=== PATIENT | male | born 1935 | race Caucasian/White ===

== ENCOUNTER 2016-05-25 03:09 | Inpatient (IN) | payer MEDICARE, BC ==
[~2016-05-25] VITALS: Ht 190.5 cm; Wt 107.0 kg
[2016-05-25] VITALS (18 sets, daily range): BP systolic 102–195; BP diastolic 53–112; PULSE 68–115; RESP 16–24; TEMP 98.4–103; O2SAT 93–98
[2016-05-25] MEDS ORDERED: SODIUM CHLOR 0.9% 1000 ML INJ 1,000 ML IV ONE ×3 (03:25→04:00)
[2016-05-25] MEDS ORDERED: TAMS0.4C4 PO (03:28)
[2016-05-25] MEDS ORDERED: PANT20TA2 PO (03:28)
[2016-05-25] MEDS ORDERED: MIRTA15 PO (03:28)
[2016-05-25] MEDS ORDERED: CARV6.252 PO (03:28)
--- NOTE | 2016-05-25 03:29 | PD ---
HPI Chief Complaint: generalized weakness, fever Time Seen by Provider: 03:20 Travel History International Travel<30 days: No Contact w/Intl Traveler<30days: No Traveled to known affect area: No History of Present Illness HPI 80-year-old male brought in by ambulance from home for evaluation of generalized weakness. The patient reports that he was going to use a restroom this evening, however he could not get out of bed. He denies falling, passing out, or injuring himself. He is having some epigastric abdominal discomfort which she believes may be an ulcer. He denies chest pain. He reports that he has been having a cough for the last several days. Unsure if he has had a fever. No history of abdominal surgeries. EMS reports a temp of 103F and a heart rate of 110 bpm with an O2 saturation in the low 90s on room air. Patient denies history of cardiopulmonary disease. [facility] Social History Tobacco Use: No Allergies-Medications (Allergen,Severity, Reaction): Coded Allergies: No Known Allergies (Unverified , 05/25/16) Reported Meds & Prescriptions Reported Meds & Active Scripts Active Reported Mirtazapine 15 Mg Tab 15 Mg PO HS Tamsulosin (Tamsulosin HCl) 0.4 Mg Cap 0.4 Mg PO HS Pantoprazole (Pantoprazole Sodium) 20 Mg Tab 20 Mg PO DAILY Carvedilol 6.25 Mg Tab 6.25 Mg PO BID Review of Systems Except as stated in HPI: all other systems reviewed are Neg Physical Exam Narrative GENERAL: Pleasant, well-developed, well-nourished, elderly-appearing male, awake , alert, no acute distress. SKIN: Warm and dry. No rash. HEAD: Atraumatic. Normocephalic. EYES: Pupils equal and round. No scleral icterus. No injection or drainage. ENT: No nasal bleeding or discharge. Mucous membranes pink and dry. NECK: Trachea midline. No JVD. No nuchal rigidity. CARDIOVASCULAR: Tachycardic, rate 110, regular. RESPIRATORY: No accessory muscle use. Clear to auscultation. Breath sounds equal bilaterally. GASTROINTESTINAL: Abdomen soft, non-tender, nondistended. MUSCULOSKELETAL: No obvious deformities. No clubbing. No cyanosis. No edema. NEUROLOGICAL: Awake and alert. No obvious cranial nerve deficits. Motor grossly within normal limits. Normal speech. No focal deficit. PSYCHIATRIC: Appropriate mood and affect; insight and judgment normal. Data Data Last Documented VS Vital Signs Date Time Temp Pulse Resp B/P Pulse Ox O2 Delivery O2 Flow Rate FiO2 05/25/16 05:22 99.8 95 22 135/73 98 Nasal Cannula 4 Orders Electrocardiogram (05/25/16 03:25) Complete Blood Count With Diff (05/25/16 03:25) Comprehensive Metabolic Panel (05/25/16 03:25) Prothrombin Time / Inr (Pt) (05/25/16 03:25) Act Partial Throm Time (Ptt) (05/25/16 03:25) Lactic Acid Sepsis Protocol (05/25/16 03:25) Lipase (05/25/16 03:25) Ckmb (Isoenzyme) Profile (05/25/16 03:25) Troponin I (05/25/16 03:25) Urinalysis - C+S If Indicated (05/25/16 03:25) Influenzae A/B Antigen (05/25/16 03:25) Blood Culture (05/25/16 03:25) Chest, Single Ap (05/25/16 03:25) Blood Glucose (05/25/16 03:25) Ecg Monitoring (05/25/16 03:25) Iv Access Insert/Monitor (05/25/16 03:25) Oximetry (05/25/16 03:25) Oxygen Administration (05/25/16 03:25) Acetaminophen Supp (Tylenol Supp) (05/25/16 03:30) Sodium Chlor 0.9% 1000 Ml Inj (Ns 1000 M (05/25/16 03:25) Sodium Chlor 0.9% 1000 Ml Inj (Ns 1000 M (05/25/16 03:25) Ceftriaxone Inj (Rocephin Inj) (05/25/16 03:30) Azithromycin Inj (Zithromax Inj) (05/25/16 03:30) Sodium Chlor 0.9% 1000 Ml Inj (Ns 1000 M (05/25/16 04:00) Ct Abd/Pel W/O Iv Contrast (05/25/16 04:27) Urine Culture (05/25/16 04:55) Admit Order (Ed Use Only) (05/25/16 05:19) Consult Urology (05/25/16 ) Sodium Chlor 0.9% 1000 Ml Inj (Ns 1000 M (05/25/16 05:18) Sodium Chloride 0.9% Flush (Ns Flush) (05/25/16 05:30) Sodium Chloride 0.9% Flush (Ns Flush) (05/25/16 09:00) Acetaminophen (Tylenol) (05/25/16 05:30) Ondansetron Inj (Zofran Inj) (05/25/16 05:30) Albuterol-Ipratropium Neb (Duoneb Neb) (05/25/16 05:30) Admit To Inpatient (05/25/16 ) Vital Signs (Adult) Q4H (05/25/16 05:18) ^ Notify Parameters (05/25/16 05:18) Intake + Output Q8H (05/25/16 05:18) ^ Smoking Cessation Counseling (05/25/16 05:18) Diet Heart Healthy (05/25/16 Breakfast) Heparin Inj (Heparin Inj) (05/25/16 06:00) Inpatient Certification (05/25/16 ) Complete Blood Count With Diff (05/25/16 12:00) Comprehensive Metabolic Panel (05/25/16 12:00) Ceftriaxone Inj (Rocephin Inj) (05/26/16 04:00) Azithromycin Inj (Zithromax Inj) (05/26/16 05:00) Labs Laboratory Tests Test 05/25/16 05/25/16 03:30 04:55 White Blood Count 15.6 TH/MM3 Red Blood Count 4.12 MIL/MM3 Hemoglobin 12.7 GM/DL Hematocrit 38.6 % Mean Corpuscular Volume 93.7 FL Mean Corpuscular Hemoglobin 30.9 PG Mean Corpuscular Hemoglobin 32.9 % Concent Red Cell Distribution Width 14.4 % Platelet Count 172 TH/MM3 Mean Platelet Volume 8.7 FL Neutrophils (%) (Auto) 94.7 % Lymphocytes (%) (Auto) 1.1 % Monocytes (%) (Auto) 3.5 % Eosinophils (%) (Auto) 0.1 % Basophils (%) (Auto) 0.6 % Neutrophils # (Auto) 14.8 TH/MM3 Lymphocytes # (Auto) 0.2 TH/MM3 Monocytes # (Auto) 0.6 TH/MM3 Eosinophils # (Auto) 0.0 TH/MM3 Basophils # (Auto) 0.1 TH/MM3 CBC Comment DIFF FINAL Differential Comment Prothrombin Time 15.3 SEC Prothromb Time International 1.4 RATIO Ratio Activated Partial 29.6 SEC Thromboplast Time Sodium Level 143 MEQ/L Potassium Level 3.9 MEQ/L Chloride Level 107 MEQ/L Carbon Dioxide Level 27.5 MEQ/L Anion Gap 9 MEQ/L Blood Urea Nitrogen 25 MG/DL Creatinine 2.65 MG/DL Estimat Glomerular Filtration 23 ML/MIN Rate Random Glucose 156 MG/DL Lactic Acid Level 2.5 mmol/L Calcium Level 9.1 MG/DL Total Bilirubin 1.8 MG/DL Aspartate Amino Transf 9 U/L (AST/SGOT) Alanine Aminotransferase 11 U/L (ALT/SGPT) Alkaline Phosphatase 76 U/L Total Creatine Kinase 22 U/L Troponin I 0.02 NG/ML Total Protein 6.2 GM/DL Albumin 2.7 GM/DL Lipase 45 U/L Urine Color YELLOW Urine Turbidity HAZY Urine pH 7.5 Urine Specific [place] 1.010 Urine Protein 30 mg/dL Urine Glucose (UA) NEG mg/dL Urine Ketones NEG mg/dL Urine Occult Blood SMALL Urine Nitrite POS Urine Bilirubin NEG Urine Urobilinogen LESS THAN 2.0 MG/DL Urine Leukocyte Esterase LARGE Urine RBC 42 /hpf Urine WBC 117 /hpf Urine Bacteria OCC /hpf Urine Hyaline Casts 1 /lpf Urine Mucus FEW /lpf Microscopic Urinalysis Comment CATH-CULTURE IND MDM Medical Decision Making Medical Screen Exam Complete: Yes Emergency Medical Condition: Yes Differential Diagnosis Sepsis, pneumonia, UTI, bacteremia, intra-abdominal infection, ACS, PE Narrative Course Initial vital signs show heart rate 102, blood pressure 141/74, pulse ox 96% on room air, oral temp of 10 3F. CBC is markable for WBC 15.6, hemoglobin 12.7, hematocrit 38.6, platelets 172, neutrophils 95%. CMP is markable for BUN 25, creatinine 2.65, GFR 23, otherwise essentially unremarkable. Lipase is 45. Lactic acid is 2.5. UA is suggestive of UTI. Chest x-ray shows patchy areas of infiltrate in the left mid and lower lung. CT abdomen pelvis: CONCLUSION: 1. Bilateral staghorn type renal calculi and left double J stent in place with concretion calcifications both proximal and distal. 2. There is also an obstructing stone in the proximal right ureter measuring 5 mm and causing mild right hydronephrosis. 3. Bilateral fat containing inguinal hernias, small right pleural effusion, probable pericardial effusion, and moderate enlargement of the prostate. The patient was empirically treated with Rocephin and azithromycin for sepsis with likely pulmonary source shortly after arrival to the emergency department. He was given 3 L of IV fluids and oral Tylenol. Patient was made aware of all findings. He is feeling a lot better after receiving IV fluids and Tylenol. He tells me that the left ureteral stent was placed by a urologist in [place] a while ago. He will be admitted to the ICU for further treatment and evaluation of sepsis, pneumonia, UTI, infected kidney stone. Case discussed with [facility] hospitalist JONATHON Alex who will admit the patient to their service under Dr. Cota. Case discussed with on-call urologist Dr. Vazquez who agrees with medical management with IV antibiotics and IV fluids at this time. He will see the patient in consultation as the patient may need bilateral nephrostomy tubes. Critical Care Narrative Aggregate critical care time was 35 minutes. Time to perform other separately billable procedures was not included in the critical care time. My time did not include minutes spent treating any other patients simultaneously or on activities that did not directly contribute to the patient's treatment. The services I provided to this patient were to treat and/or prevent clinically significant deterioration that could result in: , permanent disability, worsening clinical condition, septic shock I provided critical care services requiring my management, as noted below: Chart data review, documentation time, medication orders and management, vital sign assessments/reviewing monitor data, ordering and reviewing lab tests, ordering and interpreting/reviewing x-rays and diagnostic studies, care of the patient and discussion of the patient with the admitting physicians. Diagnosis Primary Impression: Sepsis Qualified Code: A41.9 - Sepsis, due to unspecified organism Additional Impressions: Pneumonia Qualified Code: J18.1 - Pneumonia of left lower lobe due to infectious organism UTI (urinary tract infection) Qualified Code: N39.0 - Urinary tract infection with hematuria, site unspecified Nephrolithiasis Renal insufficiency Admitting Information Admitting Physician Requests: Admit Roman Vickers MD May 25, 2016 03:29
[2016-05-25] MEDS ORDERED: AZITHROMYCIN INJ 500 MG in SODIUM CHLOR 0.9% 250 ML INJ 250 ML IV ONE (03:30)
[2016-05-25] MEDS ORDERED: ACETAMINOPHEN 650 MG SUPP RECTAL ONE (03:30)
[2016-05-25] MEDS ORDERED: cefTRIAXone INJ 1,000 MG in SODIUM CHLORIDE 0.9% INJ 100 ML IV ONE (03:30)
[2016-05-25 03:50] LABS: AUTOMATED NEUTROPHIL # 14.8 TH/MM3 (1.8-7.7); BASOPHIL # 0.1 TH/MM3 (0-0.2); BASOPHIL % 0.6 % (0.0-2.0); EOSINOPHIL % 0.1 % (0.0-4.0); HEMATOCRIT 38.6 % (39.0-51.0); HEMO FLAGS DIFF FINAL; LYMPH % 1.1 % (9.0-44.0); LYMPHOCYTE # 0.2 TH/MM3 (1.0-4.8); MEAN CELL VOLUME 93.7 FL (80.0-100.0); MEAN CORPUSCULAR HEMOGLOBIN 30.9 PG (27.0-34.0); MEAN CORPUSCULAR HGB CONC 32.9 % (32.0-36.0); MONO % 3.5 % (0.0-8.0); NEUT % 94.7 % (16.0-70.0); PLATELET COUNT 172 TH/MM3 (150-450); RED BLOOD COUNT 4.12 MIL/MM3 (4.50-5.90); RED CELL DISTRIBUTION WIDTH 14.4 % (11.6-17.2); WHITE BLOOD COUNT 15.6 TH/MM3 (4.0-11.0)
--- NOTE | 2016-05-25 03:52 | RADRPT ---
EXAM DATE/TIME: 05/25/2016 03:34 [facility] COMPARISON: No previous studies available for comparison. INDICATIONS : Fever, weakness. MEDICAL HISTORY : None. SURGICAL HISTORY : None. ENCOUNTER: Initial ACUITY: 1 day PAIN SCORE: 0/10 LOCATION: Bilateral chest FINDINGS: There are patchy areas of infiltrate in left mid and lower lung without loss of delineation left evy diaphragm. The right lung is clear. The heart is mildly enlarged. CONCLUSION: Patchy areas of infiltrate in left mid and lower lung. Grayson Alcala MD on May 25, 2016 at 3:50 Board Certified Radiologist. This report was verified electronically.
[2016-05-25 04:07] LABS: ALT (GPT) 11 U/L (12-78); ANION GAP 9 MEQ/L (5-15); AST (GOT) 9 U/L (15-37); BICARBONATE 27.5 MEQ/L (21.0-32.0); BLOOD UREA NITROGEN 25 MG/DL (7-18); CHLORIDE 107 MEQ/L (98-107); GLOMERULAR FILTRATION RATE 23 ML/MIN (>89); POTASSIUM 3.9 MEQ/L (3.5-5.1); SODIUM (NA) 143 MEQ/L (136-145)
[2016-05-25 04:11] LABS: ALKALINE PHOSPHATASE 76 U/L (45-117); TOTAL BILIRUBIN ADULT 1.8 MG/DL (0.2-1.0)
[2016-05-25 04:13] LABS: APTT (PATIENT) 29.6 SEC (24.3-30.1); INTERNATIONAL NORMALIZED RATIO 1.4 RATIO; PROTHROMBIN TIME - PATIENT 15.3 SEC (9.8-11.6)
[2016-05-25 04:15] LABS: CREATINE KINASE 22 U/L (39-308)
--- NOTE | 2016-05-25 05:04 | RADRPT ---
EXAM DATE/TIME: 05/25/2016 04:31 [facility] COMPARISON: No previous studies available for comparison. INDICATIONS : Epigastric pain with fever and general weakness. ORAL CONTRAST: No oral contrast ingested. RADIATION DOSE: 11.09 CTDIvol (mGy) MEDICAL HISTORY : Cerebrovascular disease. Hypertension. Cardiovascular disease SURGICAL HISTORY : unable to obtain ENCOUNTER: Initial ACUITY: 1 day PAIN SCALE: 6/10 LOCATION: epigastric TECHNIQUE: Volumetric scanning of the abdomen and pelvis was performed. Using automated exposure control and ad justment of the mA and/or kV according to patient size, radiation dose was kept as low as reasonably achievable to obtain optimal diagnostic quality images. FINDINGS: LOWER LUNGS: The visualized lower lungs are clear. Small right pleural effusion measuring 2 cm in AP dimension. Thickening of the pericardium, measuring up to 1.8 cm in thickness suggestive of pericardial effusion . LIVER: Homogeneous density without lesion for noncontrast technique. There is no dilation of the biliary tr ee. No calcified gallstones. SPLEEN: Normal size without lesion. PANCREAS: Within normal limits. KIDNEYS: There is mild hydronephrosis on the right side and dilation of the right ureter down to the proximal one third where there is a obstructing 5 mm calcified stone. There is also prominent calcification i n the renal pelvis with some labral lesion and in the collecting system of the lower pole. The findi ngs suggest staghorn type calculus. On the left side there is a double J stent which courses from ur inary bladder to renal pelvis. There is large staghorn calculus with extension into the calyces the upper, mid and lower pole. There is also calcification surrounding the stent in the proximal one thi rd of the ureter and prominent calcification creation about the distal J. loop in the urinary bladder . There is a prominent exophytic cyst arising from the lower pole which measures 7 cm. Left upper p ole renal cyst measures 5.1 cm. ADRENAL GLANDS: Within normal limits. VASCULAR: There is no aortic aneurysm. BOWEL/MESENTERY: No dilated loops of small or large bowel. Multiple small diverticula in the sigmoid colon with no ra diographic evidence of diverticulitis. No evidence of free fluid. ABDOMINAL WALL: Within normal limits. RETROPERITONEUM: There is no lymphadenopathy. IVC filter in place. BLADDER: Prominent calcification and intraluminal surrounding the distal J. of the stent. The calcification m easures 3.4 cm in oblique dimension suggesting concretion stone. REPRODUCTIVE: Mildly prominent prostate measuring 6 cm in dimension. This does causing indentation on the base of the urinary bladder. INGUINAL: Small bilateral fat containing inguinal hernias. No evidence of inguinal adenopathy. MUSCULOSKELETAL: Advanced degenerative changes in the lumbar vertebral end plates and posterior elements. CONCLUSION: 1. Bilateral staghorn type renal calculi and left double J stent in place with concretion calcificati ons both proximal and distal. 2. There is also an obstructing stone in the proximal right ureter measuring 5 mm and causing mild ri ght hydronephrosis. 3. Bilateral fat containing inguinal hernias, small right pleural effusion, probable pericardial effu natalie, and moderate enlargement of the prostate. Grayson Alcala MD on May 25, 2016 at 4:54 Board Certified Radiologist. This report was verified electronically.
[2016-05-25 05:10] LABS: BACTERIA, URINE OCC /hpf; BLOOD, URINE SMALL (NEG); COMMENT (UR) CATH-CULTURE IND; CULTURE IF INDICATED CATH CULTURE IND; GLUCOSE,URINE NEG (NEG); HYALINE CAST, URINE 1 /lpf (RARE); KETONE, URINE NEG (NEG); MUCUS URINE FEW /lpf (OCC); NITRITE,URINE POS (NEG); PH, URINE 7.5 (5.0-8.5); URINE COLOR YELLOW (YELLW/STRAW)
[2016-05-25] MEDS ORDERED: SODIUM CHLORIDE 0.9% FLUSH 5 ML FLUSH IV FLUSH PRN (05:30)
[2016-05-25] MEDS ORDERED: RESP: ALBUTEROL 2.5 MG/IPRATROPIUM 0.5 MG NEB (PRN) INH (05:30)
[2016-05-25] MEDS ORDERED: ONDANSETRON HCL 4 MG/2 ML VIAL IV PRN (05:30)
[2016-05-25 05:43] LABS: LACTIC ACID GHOST NOT REPORTABLE
[2016-05-25] MEDS: SODIUM CHLOR 0.9% 1000 ML INJ 1,000 ML IV SCH ×2 (05:56→15:33)
[2016-05-25] MEDS: HEPARIN SODIUM - SQ 10,000 UNITS/ML VIAL SQ SCH ×2 (05:56→17:55)
[2016-05-25] MEDS: SODIUM CHLORIDE 0.9% FLUSH 5 ML FLUSH IV FLUSH SCH ×2 (09:00→21:00)
[2016-05-25] MEDS: PANTOPRAZOLE SOD 40 MG DELAYED RELEASE TAB PO SCH (10:24)
--- NOTE | 2016-05-25 10:43 | HHI.PR ---
Objective Objective Results - Vital Signs Date Time Temp Pulse Resp B/P Pulse Ox O2 Delivery O2 Flow Rate FiO2 05/25/16 08:00 98.7 87 22 134/71 98 Nasal Cannula 2 05/25/16 05:42 98 Nasal Cannula 4.00 05/25/16 05:22 99.8 95 22 135/73 98 Nasal Cannula 4 05/25/16 05:05 97 Nasal Cannula 4 05/25/16 05:05 22 05/25/16 05:04 22 05/25/16 03:28 103.0 102 22 141/74 96 Result Diagram: 05/25/16 0330 05/25/16 0330 Other Results Laboratory Tests Test 05/25/16 05/25/16 05/25/16 03:30 04:55 05:45 White Blood Count 15.6 Red Blood Count 4.12 Hemoglobin 12.7 Hematocrit 38.6 Mean Corpuscular Volume 93.7 Mean Corpuscular Hemoglobin 30.9 Mean Corpuscular Hemoglobin 32.9 Concent Red Cell Distribution Width 14.4 Platelet Count 172 Mean Platelet Volume 8.7 Neutrophils (%) (Auto) 94.7 Lymphocytes (%) (Auto) 1.1 Monocytes (%) (Auto) 3.5 Eosinophils (%) (Auto) 0.1 Basophils (%) (Auto) 0.6 Neutrophils # (Auto) 14.8 Lymphocytes # (Auto) 0.2 Monocytes # (Auto) 0.6 Eosinophils # (Auto) 0.0 Basophils # (Auto) 0.1 CBC Comment DIFF FINAL Differential Comment Prothrombin Time 15.3 Prothromb Time International 1.4 Ratio Activated Partial 29.6 Thromboplast Time Sodium Level 143 Potassium Level 3.9 Chloride Level 107 Carbon Dioxide Level 27.5 Anion Gap 9 Blood Urea Nitrogen 25 Creatinine 2.65 Estimat Glomerular Filtration 23 Rate Random Glucose 156 Lactic Acid Level 2.5 1.0 Calcium Level 9.1 Total Bilirubin 1.8 Aspartate Amino Transf 9 (AST/SGOT) Alanine Aminotransferase 11 (ALT/SGPT) Alkaline Phosphatase 76 Total Creatine Kinase 22 Troponin I 0.02 Total Protein 6.2 Albumin 2.7 Lipase 45 Urine Color YELLOW Urine Turbidity HAZY Urine pH 7.5 Urine Specific [place] 1.010 Urine Protein 30 Urine Glucose (UA) NEG Urine Ketones NEG Urine Occult Blood SMALL Urine Nitrite POS Urine Bilirubin NEG Urine Urobilinogen LESS THAN 2.0 Urine Leukocyte Esterase LARGE Urine RBC 42 Urine WBC 117 Urine Bacteria OCC Urine Hyaline Casts 1 Urine Mucus FEW Microscopic Urinalysis Comment CATH-CULTURE IND Date/Time Procedure Status Source Growth 05/25/16 04:55 Urine Culture Received Urine Catheterized Urine Pending 05/25/16 03:30 Influenza Types A,B Antigen (MARK) - Final Complete Nasal Washing NEGATIVE FOR FLU A AND B ANTIGEN.... 05/25/16 03:30 Aerobic Blood Culture Received Blood Peripheral Pending 05/25/16 03:30 Anaerobic Blood Culture Received Blood Peripheral Pending Physical Exam Physical Exam PT is seen & examined d/w PT d/w Mackenzie UTI/Pyelonephritis possible early sepsis R Ureteral stone w mild [place] b/l staghorn stones pulmonary infiltrates ? PNA Renal failure acute vs Ch. GERD see orders see H&P by mackenzie hall f/u Fredy Cota MD May 25, 2016 10:43
[2016-05-25 14:24] LABS: ALT (GPT) 13 U/L (12-78); ANION GAP 9 MEQ/L (5-15); AST (GOT) 12 U/L (15-37); BICARBONATE 22.9 MEQ/L (21.0-32.0); CHLORIDE 112 MEQ/L (98-107); GLOMERULAR FILTRATION RATE 26 ML/MIN (>89); POTASSIUM 4.3 MEQ/L (3.5-5.1); SODIUM (NA) 144 MEQ/L (136-145)
[2016-05-25 14:26] LABS: ALKALINE PHOSPHATASE 76 U/L (45-117); AUTOMATED NEUTROPHIL # 16.7 TH/MM3 (1.8-7.7); BASOPHIL # 0.1 TH/MM3 (0-0.2); BASOPHIL % 0.4 % (0.0-2.0); EOSINOPHIL % 0.1 % (0.0-4.0); HEMATOCRIT 39.6 % (39.0-51.0); HEMO FLAGS DIFF FINAL; LYMPH % 3.3 % (9.0-44.0); LYMPHOCYTE # 0.6 TH/MM3 (1.0-4.8); MEAN CELL VOLUME 95.1 FL (80.0-100.0); MEAN CORPUSCULAR HEMOGLOBIN 30.3 PG (27.0-34.0); MEAN CORPUSCULAR HGB CONC 31.8 % (32.0-36.0); MONO % 3.9 % (0.0-8.0); NEUT % 92.3 % (16.0-70.0); PLATELET COUNT 139 TH/MM3 (150-450); RED BLOOD COUNT 4.16 MIL/MM3 (4.50-5.90); RED CELL DISTRIBUTION WIDTH 15.2 % (11.6-17.2); WHITE BLOOD COUNT 18.1 TH/MM3 (4.0-11.0)
[2016-05-25 14:30] LABS: BLOOD UREA NITROGEN 24 MG/DL (7-18)
[2016-05-25] MEDS: ACETAMINOPHEN 325 MG TAB PO PRN (15:34)
[2016-05-25] MEDS ORDERED: XARE10TA PO (15:58)
[2016-05-25] MEDS ORDERED: TRAM50TA PO (15:58)
--- NOTE | 2016-05-25 16:44 | PD.CONS ---
HPI Service Urology Consult Requested By Reason for Consult nephrolithiasis, left stent Primary Care Physician Jade Price MD Diagnosis: History of Present Illness 80yo male with history of bilateral nephrolithiasis found to have bilateral staghorn calculi with and indwelling left calcified ureteral stent. Patient has seen by Urology in [place] over 2 yrs ago where his stent was placed. Patient was instructed to follow-up to treat his stone disease, however the patient [place] up north and never saw a Urologist. He now has a large staghorn calculus surrounding the left stent proximally with a large right distal bladder stone associated with the stent. In addition, the patient has a right staghorn as well as a mid-right ureteral stone causing some obstruction. Patient also reports significant lower urinary tract symptoms with difficulty voiding. Review of Systems ROS Limitations: Clinical Condition Constitutional: COMPLAINS OF: Fever Endocrine: DENIES: Polyuria Eyes: DENIES: Blurred vision Ears, nose, mouth, throat: DENIES: Hearing loss Respiratory: COMPLAINS OF: Apneas, Cough Cardiovascular: DENIES: Chest pain Gastrointestinal: COMPLAINS OF: Abdominal pain Genitourinary: COMPLAINS OF: Dysuria Hematologic/lymphatic: DENIES: Lymphadenopathy Immunologic/allergic: DENIES: Eczema Neurologic: DENIES: Abnormal gait, Headache Psychiatric: DENIES: Anxiety Past Family Social History Past Medical History HTN BPH Nephjroltihiasis Past Surgical History UReteral stents Reported Medications Reported Meds & Active Scripts Active Reported Tramadol (Tramadol HCl) 50 Mg Tab 50 Mg PO Q4H PRN Xarelto (Rivaroxaban) 10 Mg Tab Unknown Dose PO DAILY Mirtazapine 15 Mg Tab 15 Mg PO HS Tamsulosin (Tamsulosin HCl) 0.4 Mg Cap 0.4 Mg PO HS Pantoprazole (Pantoprazole Sodium) 20 Mg Tab 20 Mg PO DAILY Carvedilol 6.25 Mg Tab 6.25 Mg PO BID Allergies: Coded Allergies: No Known Allergies (Unverified , 05/25/16) Active Ordered Medications Current Medications Medications (Trade) Dose Ordered Sig/Axel Route Start Time Stop Time Status Last Admin (NS 1000 ml Inj) 1,000 ml @ 100 mls/hr Q10H IV 05/25/16 05:18 05/25/16 15:33 (NS Flush) 2 ml UNSCH PRN IV FLUSH 05/25/16 05:30 IV Flush 2 ml 2 ml BID IV FLUSH 05/25/16 09:00 Ceftriaxone Sodium 1000 mg/ Sodium Chloride 100 ml @ 200 mls/hr Q24H IV 05/26/16 04:00 (Zithromax Inj/ NS 250 ml Inj) 250 ml @ 250 mls/hr Q24H IV 05/26/16 05:00 (Tylenol) 650 mg Q4H PRN PO 05/25/16 05:30 05/25/16 15:34 (Zofran Inj) 4 mg Q6H PRN IV 05/25/16 05:30 (Heparin Inj) 5,000 units Q12H SQ 05/25/16 06:00 05/25/16 05:56 (Protonix) 40 mg DAILY PO 05/25/16 09:00 05/25/16 10:24 (Coreg) 6.25 mg BID PO 05/25/16 21:00 (Remeron) 15 mg HS PO 05/25/16 21:00 (Flomax) 0.4 mg HS PO 05/25/16 21:00 Family History Reviewed and noncontributory to present illness Social History NO tobacco use, occasional ETOh Physical Exam Vital Signs Vital Signs Date Time Temp Pulse Resp B/P Pulse Ox O2 Delivery O2 Flow Rate FiO2 05/25/16 15:15 101.1 05/25/16 14:00 102 20 162/96 93 Room Air 05/25/16 13:00 84 16 143/87 95 Room Air 05/25/16 12:00 84 22 137/89 96 Room Air 05/25/16 11:00 84 18 131/77 95 Room Air 05/25/16 10:00 84 20 133/70 96 Room Air 05/25/16 09:00 92 20 140/71 96 Nasal Cannula 2 05/25/16 08:00 98.7 87 22 134/71 98 Nasal Cannula 2 05/25/16 05:42 98 Nasal Cannula 4.00 05/25/16 05:22 99.8 95 22 135/73 98 Nasal Cannula 4 05/25/16 05:05 97 Nasal Cannula 4 05/25/16 05:05 22 05/25/16 05:04 22 05/25/16 03:28 103.0 102 22 141/74 96 Physical Exam GENERAL: This is a well-nourished, well-developed patient, in no apparent distress. SKIN: No rashes, ecchymoses or lesions. Cool and dry. HEAD: Atraumatic. Normocephalic. EYES: Extraocular motions intact. No scleral icterus. No injection or drainage. ENT: Nose without bleeding, purulent drainage. Airway patent. NECK: Trachea midline. No JVD or lymphadenopathy. Supple, nontender, no meningeal signs. CARDIOVASCULAR: Normal pulses, extermities well perfused RESPIRATORY: Nonlabored, equal chest rise, O2 NC GASTROINTESTINAL: Abdomen soft, mild tenderness, nondistended. MUSCULOSKELETAL: Extremities without clubbing, cyanosis, or edema. NEUROLOGICAL: Awake and alert. Motor and sensory grossly within normal limits. Normal speech. Laboratory Laboratory Tests Test 05/25/16 05/25/16 05/25/16 05/25/16 03:30 04:55 05:45 13:55 White Blood Count 15.6 18.1 Red Blood Count 4.12 4.16 Hemoglobin 12.7 12.6 Hematocrit 38.6 39.6 Mean Corpuscular Volume 93.7 95.1 Mean Corpuscular Hemoglobin 30.9 30.3 Mean Corpuscular Hemoglobin 32.9 31.8 Concent Red Cell Distribution Width 14.4 15.2 Platelet Count 172 139 Mean Platelet Volume 8.7 8.7 Neutrophils (%) (Auto) 94.7 92.3 Lymphocytes (%) (Auto) 1.1 3.3 Monocytes (%) (Auto) 3.5 3.9 Eosinophils (%) (Auto) 0.1 0.1 Basophils (%) (Auto) 0.6 0.4 Neutrophils # (Auto) 14.8 16.7 Lymphocytes # (Auto) 0.2 0.6 Monocytes # (Auto) 0.6 0.7 Eosinophils # (Auto) 0.0 0.0 Basophils # (Auto) 0.1 0.1 CBC Comment DIFF FINAL DIFF FINAL Differential Comment Prothrombin Time 15.3 Prothromb Time International 1.4 Ratio Activated Partial 29.6 Thromboplast Time Sodium Level 143 144 Potassium Level 3.9 4.3 Chloride Level 107 112 Carbon Dioxide Level 27.5 22.9 Anion Gap 9 9 Blood Urea Nitrogen 25 24 Creatinine 2.65 2.43 Estimat Glomerular Filtration 23 26 Rate Random Glucose 156 114 Lactic Acid Level 2.5 1.0 Calcium Level 9.1 8.9 Total Bilirubin 1.8 1.0 Aspartate Amino Transf 9 12 (AST/SGOT) Alanine Aminotransferase 11 13 (ALT/SGPT) Alkaline Phosphatase 76 76 Total Creatine Kinase 22 Troponin I 0.02 Total Protein 6.2 6.5 Albumin 2.7 2.7 Lipase 45 Urine Color YELLOW Urine Turbidity HAZY Urine pH 7.5 Urine Specific [place] 1.010 Urine Protein 30 Urine Glucose (UA) NEG Urine Ketones NEG Urine Occult Blood SMALL Urine Nitrite POS Urine Bilirubin NEG Urine Urobilinogen LESS THAN 2.0 Urine Leukocyte Esterase LARGE Urine RBC 42 Urine WBC 117 Urine Bacteria OCC Urine Hyaline Casts 1 Urine Mucus FEW Microscopic Urinalysis Comment CATH-CULTURE IND Hematology Comments Date/Time Procedure Status Source Growth 05/25/16 04:55 Urine Culture Received Urine Catheterized Urine Pending 05/25/16 03:30 Influenza Types A,B Antigen (MARK) - Final Complete Nasal Washing NEGATIVE FOR FLU A AND B ANTIGEN.... 05/25/16 03:30 Aerobic Blood Culture Received Blood Peripheral Pending 05/25/16 03:30 Anaerobic Blood Culture Received Blood Peripheral Pending Result Diagram: 05/25/16 1355 05/25/16 1355 Imaging Last 72 hours Impressions Abdomen/Pelvis CT 05/25/16 0427 Signed Impressions: Service Date/Time: Wednesday, May 25, 2016 04:31 - CONCLUSION: 1. Bilateral staghorn type renal calculi and left double J stent in place with concretion calcifications both proximal and distal. 2. There is also an obstructing stone in the proximal right ureter measuring 5 mm and causing mild right hydronephrosis. 3. Bilateral fat containing inguinal hernias, small right pleural effusion, probable pericardial effusion, and moderate enlargement of the prostate. Grayson Alcala MD Chest X-Ray 05/25/16 0325 Signed Impressions: Service Date/Time: Wednesday, May 25, 2016 03:34 - CONCLUSION: Patchy areas of infiltrate in left mid and lower lung. Grayson Alcala MD Assessment and Plan Problem List: (1) Nephrolithiasis ICD Code: N20.0 Status: Acute (2) UTI (urinary tract infection) ICD Code: N39.0 Status: Acute Assessment and Plan -Patient will need bilateral nephrostomy tube placement in order to adequetaly drain his kidneys in hopes of improving his renal function -The nephrostomy tubes will also serve as access for future PCNL to treat his stone burden -He will need removal of his bladder stone that is attached to his left stent prior to definitive stone treatment for his staghorn calculi -Patient is on Xarelto at this time, patient and family believe this is for Afib , but are unsure -Will order bilateral nephrostomy tube placement. Patient may be discharged once medically cleared with the nephrostomy tubes in place with close follow-up in Urology clinic for surgical planning regarding his stone burden. -In regards to his BPH, continue flomax therapy. If difficulty in voiding, may place catheter with Urology follow-up Problem Qualifiers (1) UTI (urinary tract infection): Qualified Code: N39.0 - Urinary tract infection with hematuria, site unspecified Vineet Vazquez MD May 25, 2016 16:44
[2016-05-25] MEDS ORDERED: CARVEDILOL 6.25 MG TAB PO ONE (17:45)
[2016-05-25] MEDS ORDERED: IBUPROFEN 600 MG TAB PO PRN (17:45)
[2016-05-25] MEDS: MORPHINE SULFATE 4 MG/ML INJ IV PUSH PRN (17:55)
[2016-05-25] MEDS: DILTIAZEM HCL 30 MG TAB PO SCH ×2 (18:29→21:30)
[2016-05-25] MEDS: TAMSULOSIN HCL 0.4 MG CAP PO SCH (21:30)
[2016-05-25] MEDS: MIRTAZAPINE 15 MG TAB PO SCH (21:30)
[2016-05-25] MEDS: CARVEDILOL 6.25 MG TAB PO SCH (21:31)
[2016-05-25] MEDS ORDERED: CHLORHEXIDINE GLUCONATE 2 % 1 PACK (2 CLOTHS)(extra cloths) TOP PRN (23:15)
--- NOTE | 2016-05-25 23:26 | EKG ---
Date Performed: 05/25/2016 Time Performed: 04:23:56 PTAGE: 80 years EKG: ATRIAL FIBRILLATION WITH RAPID VENTRICULAR RESPONSE RIGHT BUNDLE BRANCH BLOCK ABNORMAL ECG NO PREVIOUS TRACING DOCTOR: Macario Elizabeth Interpretating Date/Time 05/25/2016 23:25:32
[2016-05-26] VITALS (16 sets, daily range): BP systolic 92–232; BP diastolic 52–108; PULSE 47–142; RESP 11–44; TEMP 97.5–99.1; O2SAT 93–100
[2016-05-26] MEDS: SODIUM CHLOR 0.9% 1000 ML INJ 1,000 ML IV SCH ×3 (01:18→21:18)
[2016-05-26] MEDS: CHLORHEXIDINE GLUCONATE 2 % 1 PACK (2 CLOTHS)(taper/protocol) TOP SCH (04:00)
[2016-05-26] MEDS: cefTRIAXone INJ 1,000 MG in SODIUM CHLORIDE 0.9% INJ 100 ML IV SCH (04:09)
[2016-05-26] MEDS: HEPARIN SODIUM - SQ 10,000 UNITS/ML VIAL SQ SCH ×2 (05:00→18:00)
[2016-05-26] MEDS: AZITHROMYCIN INJ 500 MG in SODIUM CHLOR 0.9% 250 ML INJ 250 ML IV SCH (05:00)
[2016-05-26 06:34] LABS: HEMATOCRIT 34.8 % (39.0-51.0); MEAN CELL VOLUME 94.6 FL (80.0-100.0); MEAN CORPUSCULAR HEMOGLOBIN 30.7 PG (27.0-34.0); MEAN CORPUSCULAR HGB CONC 32.4 % (32.0-36.0); PLATELET COUNT 116 TH/MM3 (150-450); RED BLOOD COUNT 3.68 MIL/MM3 (4.50-5.90); RED CELL DISTRIBUTION WIDTH 15.1 % (11.6-17.2); REVIEW FLAG FINAL; WHITE BLOOD COUNT 10.9 TH/MM3 (4.0-11.0)
[2016-05-26 06:50] LABS: BICARBONATE 25.1 MEQ/L (21.0-32.0); POTASSIUM 4.2 MEQ/L (3.5-5.1)
[2016-05-26] MEDS: DILTIAZEM HCL 30 MG TAB PO SCH ×3 (08:16→20:32)
[2016-05-26] MEDS: CARVEDILOL 6.25 MG TAB PO SCH ×2 (08:16→20:32)
[2016-05-26] MEDS: SODIUM CHLORIDE 0.9% FLUSH 5 ML FLUSH IV FLUSH SCH ×2 (08:17→20:32)
[2016-05-26] MEDS: PANTOPRAZOLE SOD 40 MG DELAYED RELEASE TAB PO SCH (08:17)
--- NOTE | 2016-05-26 09:01 | HHI.PR ---
Subjective Subjective Remarks Awakes to voice, somnolent, oriented 3 Has no complaints No fever Coreg and diltiazem held this morning, noted bradycardic, heart rate 40s Blood pressure 100s Review of Systems Constitutional Constitutional Remarks 12 point ROS difficult to complete Vitals/Results Intake & Output 05/25/16 05/25/16 05/26/16 15:00 23:00 07:00 Intake Total 300 ml 420 ml 1355 ml Output Total 300 ml 150 ml Balance 300 ml 120 ml 1205 ml Intake Oral 300 ml 420 ml 50 ml IV Total 1305 ml Output Urine Total 300 ml 150 ml # Voids 1 3 # Bowel Movements 0 Vital Signs Vital Signs Date Time Temp Pulse Resp B/P Pulse Ox O2 Delivery O2 Flow Rate FiO2 05/26/16 06:00 51 05/26/16 04:00 47 05/26/16 04:00 97.6 47 11 107/56 98 05/26/16 02:00 54 05/26/16 01:25 97 Nasal Cannula 2.00 05/26/16 01:20 97 Nasal Cannula 2.00 05/26/16 00:00 98.4 57 15 92/52 97 05/26/16 00:00 68 05/25/16 22:49 98.4 68 24 102/53 95 05/25/16 21:57 79 20 107/71 97 Nasal Cannula 2 05/25/16 19:15 92 20 143/73 97 Nasal Cannula 2 05/25/16 18:29 99.0 95 20 154/72 97 Nasal Cannula 2 05/25/16 18:00 20 05/25/16 17:30 115 20 195/112 97 Nasal Cannula 2 05/25/16 16:54 101.8 113 20 172/90 97 Nasal Cannula 2 05/25/16 15:15 101.1 05/25/16 14:00 102 20 162/96 93 Room Air 05/25/16 13:00 84 16 143/87 95 Room Air 05/25/16 12:00 84 22 137/89 96 Room Air 05/25/16 11:00 84 18 131/77 95 Room Air 05/25/16 10:00 84 20 133/70 96 Room Air CBC/BMP: 05/26/16 0540 05/26/16 0540 Lab Results Laboratory Tests Test 05/25/16 05/25/16 05/26/16 13:55 22:45 05:40 White Blood Count 18.1 TH/MM3 10.9 TH/MM3 Red Blood Count 4.16 MIL/MM3 3.68 MIL/MM3 Hemoglobin 12.6 GM/DL 11.3 GM/DL Hematocrit 39.6 % 34.8 % Mean Corpuscular Volume 95.1 FL 94.6 FL Mean Corpuscular Hemoglobin 30.3 PG 30.7 PG Mean Corpuscular Hemoglobin 31.8 % 32.4 % Concent Red Cell Distribution Width 15.2 % 15.1 % Platelet Count 139 TH/MM3 116 TH/MM3 Mean Platelet Volume 8.7 FL 9.2 FL Neutrophils (%) (Auto) 92.3 % Lymphocytes (%) (Auto) 3.3 % Monocytes (%) (Auto) 3.9 % Eosinophils (%) (Auto) 0.1 % Basophils (%) (Auto) 0.4 % Neutrophils # (Auto) 16.7 TH/MM3 Lymphocytes # (Auto) 0.6 TH/MM3 Monocytes # (Auto) 0.7 TH/MM3 Eosinophils # (Auto) 0.0 TH/MM3 Basophils # (Auto) 0.1 TH/MM3 CBC Comment DIFF FINAL Differential Comment Hematology Comments Sodium Level 144 MEQ/L 144 MEQ/L Potassium Level 4.3 MEQ/L 4.2 MEQ/L Chloride Level 112 MEQ/L 111 MEQ/L Carbon Dioxide Level 22.9 MEQ/L 25.1 MEQ/L Anion Gap 9 MEQ/L 8 MEQ/L Blood Urea Nitrogen 24 MG/DL 31 MG/DL Creatinine 2.43 MG/DL 2.58 MG/DL Estimat Glomerular Filtration 26 ML/MIN 24 ML/MIN Rate Random Glucose 114 MG/DL 111 MG/DL Calcium Level 8.9 MG/DL 8.3 MG/DL Total Bilirubin 1.0 MG/DL Aspartate Amino Transf 12 U/L (AST/SGOT) Alanine Aminotransferase 13 U/L (ALT/SGPT) Alkaline Phosphatase 76 U/L Total Protein 6.5 GM/DL Albumin 2.7 GM/DL Nasal Screen MRSA (PCR) NEGATIVE Physical Exam General General Appearance: Well Developed, Well Nourished, Sleeping Eyes Eye Exam: Pupils Equal, Pupils Reactive Ears & Nose Ears & Nose Exam: Nasal Mucosa [place] Throat Throat Exam: Oral Mucosa [place] & Moist Neck Neck Exam: Neck Supple, Trachea Midline Pulmonary Resp Exam: Breath Sounds Equal, Decreased Bases Cardiology CV Exam: Arrhythmia, Bradycardia Gastrointestinal/Abdomen GI Exam: Soft, Non-Tender, Non-Distended Musculoskeletal MS Exam: Joints Intact Integumentary Skin Exam: Warm, Dry Extremeties Extremities Exam: No Edema, Pedal Pulses Palpable Neurologic Neuro Exam: Speech Clear, Moving All Extremities, No Focal Deficits VTE Prophylaxis VTE Prophylaxis Device: SCDs VTE Prophylaxis Meds: Heparin Assessment/Plan Problem List: (1) Sepsis (2) Pneumonia (3) Renal insufficiency (4) Nephrolithiasis (5) UTI (urinary tract infection) (6) Atrial fibrillation (7) Bradycardia (8) BPH (benign prostatic hyperplasia) Assessment/Plan nephrolithiasis, bilat staghorn calculus, with indwelling left calcified ureteral stent. -appreciate urology input, will need bilateral nephrostomy tube placement, removal of his bladder stone that is attached to his left stent prior to definitive stone treatment for his staghorn calculi -Plan for bilat nephro placement, can be dc with tubes in place and f/u urology. -For BPH, urology recommends to continue Flomax and desir if difficulty voiding. -Xarelto on hold -Pt. waiting to IR Acute renal injury -continue IVF -monitor renal function -avoid nephrotoxic agents Sepsis, UTI and PNA -continue abx -follow cultures Afib, bradycardia, with hypotension -Hold parameters for Cardizem and Coreg, d/w nursing -Telemetry monitoring -Continue Heparin for now, after urology procedures will resume Xarelto Lethargic today -will check ammonia Labs in am Heparin for DVT prophylaxis PT eval and tx Keep in ICU for now This patient was seen by myself and Dr. Cota, this note is written on his behalf Problem Qualifiers (1) Sepsis: Qualified Code: A41.9 - Sepsis, due to unspecified organism (2) Pneumonia: Qualified Code: J18.1 - Pneumonia of left lower lobe due to infectious organism (3) UTI (urinary tract infection): Qualified Code: N39.0 - Urinary tract infection with hematuria, site unspecified (4) Atrial fibrillation: Qualified Code: I48.2 - Chronic atrial fibrillation (5) BPH (benign prostatic hyperplasia): Fanny Napoles May 26, 2016 09:00
--- NOTE | 2016-05-26 09:54 | MH ---
cc: RINA COTA MD DATE OF ADMISSION: 05/25/2016 DATE OF : 1935 CHIEF COMPLAINT: Abdominal pain, cough. HISTORY OF PRESENT ILLNESS This is a pleasant 80-year-old white male who was brought to the emergency room via ambulance for an evaluation of his generalized weakness, abdominal pain and cough. The patient states that he has been sick for approximately one day with some abdominal pain. He states that the pain waxes and wanes. He has had a decreased appetite and has consumed no food within the last 24-hours, but has been able to keep down liquids. He denies any chest pain, no shortness of breath. Denies any weight gain or weight loss. He denies any headache. The patient has had some sputum production which he notes to be thick-green. His chief complaint has been his epigastric abdominal discomfort to the point that he thought he might have an ulcer. The patient has had a fever which has been recorded as high as 103. He has had some tachycardic rhythm as high as 110, but his normal rhythm is atrial fibrillation with a rate in the 90s. The patient states that he got up to go to the bathroom approximately 2:30 this morning and could not get out of the bed. He states that he did not fall and did not pass out but knew that he was sick enough he needed to come be observed. The patient has no history of abdominal pain or surgery. 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 He recently has moved to this area from [place], he and his have just moved here from [place] approximately 2 months ago. PAST MEDICAL HISTORY 1. CVA. 2. Kidney stones. 3. Cardiac arrhythmia which is chronic atrial fibrillation but he denies any cardiopulmonary disease. 4. GERD. 5. Depression. 6. BPH. ALLERGIES The patient is not allergic to anything. MEDICATION His medications include: 1. Tamsulosin 0.4 mg tablet at night. 2. Mirtazapine 15 mg at night. 3. Carvedilol 6.25 mg p.o. b.i.d. 4. Pantoprazole 20 mg every day. SOCIAL HISTORY The patient is , currently lives with his in a modular home. He denies any tobacco or alcohol use or no illicit drugs. REVIEW OF SYSTEMS A 12-point review was done, positive findings include fever, tachycardia, cough with generalized weakness, positive sputum production, decreased appetite. All other systems were evaluated and otherwise unremarkable. PHYSICAL EXAMINATION GENERAL: This is a pleasant, well-nourished, well-developed, mildly obese elderly male who looks to be his stated age, resting in the bed, no acute distress. SKIN: Warm to touch and dry. He has no rashes. HEENT: Normocephalic, atraumatic. Pupils are 3 mm bilateral and reactive to light. No scleral icterus. No drainage from his eyes or his nose. Mucous membranes are pale pink and dry. NECK: Supple. Trachea is midline. No JVD. CARDIOVASCULAR: Irregular rhythm with some tachycardia. Heart sounds are distant. I hear no murmur or rub but possibly an S3 gallop. RESPIRATORY: Low air volumes but clear to auscultation anteriorly and posteriorly. GASTROINTESTINAL: Abdomen is soft, obese. He does have some tenderness in his epigastric and mid and right lower quadrant. He is nondistended. MUSCULOSKELETAL: Moves all extremities with purpose, no obvious deformities. No clubbing, no cyanosis, no edema. Pulses are intact. NEUROLOGIC: He is awake and alert x 4, a good historian. He does have right-sided weakness which is chronic secondary to his CVA. His speech is normal. 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 PSYCHIATRIC: His mood is appropriate. Affect is appropriate. Judgment is normal. LABORATORY DATA WBC count 15.6, RBC 4.2, hemoglobin 12.7, hematocrit 38.6, platelet count 172, neutrophil percentage auto is 94.7, lymphocyte auto 1.1. PT/INR is 1.4. His urine is yellow, hazy, PH is 7.5, specific gravity 1.010, urine protein is 30, small amount of occult blood, positive for nitrites, large amount of leukocyte esterase. We will follow that with a cath culture. Chemistry sodium is 143, potassium 3.9, chloride 107, carbon dioxide 27.5, anion gap is 9, BUN 25, creatinine 2.65. His glucose is 156. Lactic acid 2.5. Troponin is 0.02, albumin is 2.7, lipase 45. IMAGING STUDIES Chest x-ray shows patchy areas of infiltrate in the left mid and lower lung. Abdomen/pelvis CT shows bilateral staghorn-type renal calculi and left double-J stent in place with concretion calcifications both proximal and distance, there is also an obstructing stone in the proximal right ureter measuring 5 mm and causing mild right hydronephrosis, bilateral fat containing inguinal hernias, small right pleural effusion, probable pericardial effusion and moderate enlargement of the prostate. ASSESSMENT 1. Bilateral staghorn renal calculi. 2. Sepsis. 3. Pneumonia. 4. UTI. 5. Renal insufficiency. 6. Anemia. 7. Leukocytosis. 8. Lactic acidosis. 9. Protein calorie malnutrition. 10. BPH. PLAN Our plan is to admit to inpatient status. Will monitor vital signs q. 4. Albuterol treatments, start him on IV fluids, I&O, heart healthy diet. DCED, VT prophylaxis and PUD prophylaxis with heparin and Protonix. He will be educated on smoking cessation. Lab monitoring and labs in the a.m. which include a CMP and CBC. He will be on Rocephin IV and Azithromycin IV. Will consult neurology for his expert opinion. We have a urine culture pending. As needed pain medications for pain, nausea, fever. We will also monitor fever, heart rate, blood pressure and respiratory rate and treat as warranted. The patient is full code, full aggressive care. We will follow for any other needs. Dictated by: OLVIN Maagña Rina Cota MD MNA/TLL /8:49 AM /9:54 AM PT is seen & examined d/w PT d/w Mackenzie UTI/Pyelonephritis possible early sepsis R Ureteral stone w mild [place] b/l staghorn stones pulmonary infiltrates ? PNA Renal failure acute vs Ch. GERD see orders see H&P by mackenzie hall f/u Rina Cota MD May 25, 2016 10:43 MTDD
[2016-05-26] MEDS ORDERED: MIDAZOLAM HCL 5 MG/5 ML VIAL ONE (15:55)
[2016-05-26] MEDS ORDERED: fentaNYL CITRATE 250 MCG/5 ML AMP ONE (15:55)
--- NOTE | 2016-05-26 17:06 | PD.RAD ---
Post Procedure Progress Note Pre Procedure Diagnosis: (1) Nephrolithiasis (2) UTI (urinary tract infection) Post Procedure Diagnosis: (1) Nephrolithiasis (2) UTI (urinary tract infection) Procedure Date: May 26, 2016 Supervising Radiologist: Florentin Castillo Anesthesia: Local, Conscious Sedation Plan of Activity Patient to Unit: ROPU Patient Condition: Fair Additional Comments: Bilateral 8 polish nephrostomy tubes placed with ultrasound and fluoroscopic guidance Tubes in good position and draining well. Full dictated report to follow See PACS Report for procedural detail/treatment Florentin Castillo MD May 26, 2016 17:06
[2016-05-26] MEDS: MORPHINE SULFATE 4 MG/ML INJ IV PUSH PRN ×2 (18:27→20:29)
[2016-05-26 18:57] LABS: BLOOD GAS BASE EXCESS -4.1 mmol/L (-2-2); BLOOD GAS CARBOXYHEMOGLOBIN 1.5 % (0-4); BLOOD GAS HCO3 21 mmol/L (22-26); BLOOD GAS O2 HGB SATURATION 97 % (90-100); BLOOD GAS OXYGEN CONTENT 18.3 Vol % (12.0-20.0); BLOOD GAS PCO2 42 mmHg (38-42); BLOOD GAS PO2 198 mmHg (61-120); BLOOD GAS TOTAL HGB 13.1 G/DL (12.0-16.0); TEMP CORR TO 98.6
[2016-05-26 18:58] LABS: CRITICAL VALUE NO; DRAW SITE RT RADIAL; FIO2 100 %; LITER FLOW 15 L/M; NUMBER OF ARTERIAL PUNCTURES 1; OXYGEN DEVICE NRBR; STAT NO; ULNAR PULSE PRESENT
[2016-05-26] MEDS ORDERED: IOHEXOL 350 MG/ML 50 ML BTL (for RAD DIAG) ONE (18:59)
[2016-05-26] MEDS ORDERED: LABETALOL HCL 100 MG/20 ML VIAL IV PUSH ONE (19:00)
[2016-05-26] MEDS ORDERED: VANCOMYCIN INJ 1,250 MG in SODIUM CHLOR 0.9% 250 ML INJ 250 ML IV ONE (20:00)
[2016-05-26] MEDS ORDERED: DILTIAZEM HCL 25 MG/5 ML VIAL IV ONE (20:15)
[2016-05-26] MEDS ORDERED: DILTIAZEM INJ 125 MG in SODIUM CHLORIDE 0.9% INJ 100 ML IV SCH (20:15)
[2016-05-26] MEDS: MIRTAZAPINE 15 MG TAB PO SCH (20:32)
[2016-05-26] MEDS: TAMSULOSIN HCL 0.4 MG CAP PO SCH (20:32)
--- NOTE | 2016-05-26 20:33 | RADRPT ---
EXAM DATE/TIME: 05/26/2016 19:10 [facility] COMPARISON: No previous studies available for comparison. INDICATIONS : Short of breath. MEDICAL HISTORY : None. SURGICAL HISTORY : None. ENCOUNTER: Initial ACUITY: 1 day PAIN SCORE: 0/10 LOCATION: Bilateral chest FINDINGS: A single view of the chest demonstrates mild basilar airspace disease similar to May 25. Heart si ze enlarged. No significant effusion. No pneumothorax. CONCLUSION: 1. Mild basilar airspace disease. Cardiomegaly. No pneumothorax. Sky Hernandes MD on May 26, 2016 at 20:29 Board Certified Radiologist. This report was verified electronically.
[2016-05-26 23:20] LABS: HEMATOCRIT 34.7 % (39.0-51.0); MEAN CELL VOLUME 94.3 FL (80.0-100.0); MEAN CORPUSCULAR HEMOGLOBIN 30.8 PG (27.0-34.0); MEAN CORPUSCULAR HGB CONC 32.7 % (32.0-36.0); PLATELET COUNT 123 TH/MM3 (150-450); RED BLOOD COUNT 3.68 MIL/MM3 (4.50-5.90); REVIEW FLAG FINAL; WHITE BLOOD COUNT 8.9 TH/MM3 (4.0-11.0)
[2016-05-27] VITALS (14 sets, daily range): BP systolic 89–137; BP diastolic 50–88; PULSE 54–73; RESP 11–20; TEMP 97.9–98.5; O2SAT 97–100
[2016-05-27] MEDS: CHLORHEXIDINE GLUCONATE 2 % 1 PACK (2 CLOTHS)(taper/protocol) TOP SCH (04:00)
[2016-05-27 04:31] LABS: HEMATOCRIT 34.2 % (39.0-51.0); MEAN CELL VOLUME 95.5 FL (80.0-100.0); MEAN CORPUSCULAR HEMOGLOBIN 30.4 PG (27.0-34.0); MEAN CORPUSCULAR HGB CONC 31.9 % (32.0-36.0); PLATELET COUNT 126 TH/MM3 (150-450); RED BLOOD COUNT 3.58 MIL/MM3 (4.50-5.90); REVIEW FLAG FINAL; WHITE BLOOD COUNT 15.1 TH/MM3 (4.0-11.0)
[2016-05-27 04:42] LABS: BICARBONATE 20.6 MEQ/L (21.0-32.0)
[2016-05-27] MEDS: cefTRIAXone INJ 1,000 MG in SODIUM CHLORIDE 0.9% INJ 100 ML IV SCH (05:15)
[2016-05-27] MEDS: AZITHROMYCIN INJ 500 MG in SODIUM CHLOR 0.9% 250 ML INJ 250 ML IV SCH (05:53)
[2016-05-27] MEDS: HEPARIN SODIUM - SQ 10,000 UNITS/ML VIAL SQ SCH ×2 (05:54→18:00)
[2016-05-27] MEDS: SODIUM CHLOR 0.9% 1000 ML INJ 1,000 ML IV SCH (07:18)
--- NOTE | 2016-05-27 08:44 | HHI.PR ---
Subjective Subjective Remarks S/P bilat nephro tube placement 05/26 draining well flank pain stable awakes to voice, oriented x 3, more alert today no n/v eating okay yesterday BP elevated, given meds and IV narcotics this morning BP down to 80's, now 107/59 no cp no sob Review of Systems Constitutional Constitutional Remarks 12 point ROS completed, unreliable Vitals/Results Intake & Output 05/26/16 05/26/16 05/27/16 15:00 23:00 07:00 Intake Total 1013 ml 2135 ml 1158 ml Output Total 300 ml 400 ml 150 ml Balance 713 ml 1735 ml 1008 ml Intake Oral 480 ml 480 ml IV Total 1013 ml 1655 ml 678 ml Output Urine Total 300 ml Drainage Total 400 ml 150 ml # Voids 1 1 # Bowel Movements 0 Vital Signs Vital Signs Date Time Temp Pulse Resp B/P Pulse Ox O2 Delivery O2 Flow Rate FiO2 05/27/16 08:27 100 Nasal Cannula 2.00 05/27/16 06:00 61 05/27/16 04:00 98.5 56 11 89/58 98 05/27/16 04:00 56 05/27/16 02:00 63 05/27/16 00:00 98.1 72 12 90/50 97 05/27/16 00:00 72 05/26/16 23:45 99 Nasal Cannula 5.00 05/26/16 22:54 12 05/26/16 22:00 73 05/26/16 21:22 96 Nasal Cannula 5.00 05/26/16 21:00 96 Nasal Cannula 4.00 05/26/16 20:45 84 124/67 05/26/16 20:00 99.1 142 44 232/108 93 05/26/16 20:00 100 Partial Non-Rebreather 15.00 05/26/16 20:00 142 05/26/16 18:00 60 05/26/16 14:00 62 05/26/16 12:00 60 05/26/16 12:00 97.6 61 19 135/67 96 05/26/16 11:22 100 Nasal Cannula 2.00 05/26/16 10:00 49 CBC/BMP: 05/27/16 0340 05/27/16 0340 Lab Results Laboratory Tests Test 05/26/16 05/26/16 05/27/16 18:45 23:02 03:40 Blood Gas Puncture Site RT RADIAL Blood Gas Patient Temperature 98.6 Blood Gas HCO3 21 mmol/L Blood Gas Base Excess -4.1 mmol/L Blood Gas Oxygen Saturation 97 % Arterial Blood pH 7.32 Arterial Blood Partial 42 mmHg Pressure CO2 Arterial Blood Partial 198 mmHg Pressure O2 Arterial Blood Oxygen Content 18.3 Vol % Arterial Blood 1.5 % Carboxyhemoglobin Arterial Blood Methemoglobin 1.0 % Blood Gas Hemoglobin 13.1 G/DL Oxygen Delivery Device NRBR Blood Gas Liter Flow 15 L/M Blood Gas Inspired Oxygen 100 % White Blood Count 8.9 TH/MM3 15.1 TH/MM3 Red Blood Count 3.68 MIL/MM3 3.58 MIL/MM3 Hemoglobin 11.3 GM/DL 10.9 GM/DL Hematocrit 34.7 % 34.2 % Mean Corpuscular Volume 94.3 FL 95.5 FL Mean Corpuscular Hemoglobin 30.8 PG 30.4 PG Mean Corpuscular Hemoglobin 32.7 % 31.9 % Concent Red Cell Distribution Width 15.0 % 15.0 % Platelet Count 123 TH/MM3 126 TH/MM3 Mean Platelet Volume 8.6 FL 9.6 FL Ammonia 23 MCMOL/L Sodium Level 144 MEQ/L Potassium Level 4.0 MEQ/L Chloride Level 113 MEQ/L Carbon Dioxide Level 20.6 MEQ/L Anion Gap 10 MEQ/L Blood Urea Nitrogen 39 MG/DL Creatinine 2.29 MG/DL Estimat Glomerular Filtration 28 ML/MIN Rate Random Glucose 90 MG/DL Calcium Level 8.2 MG/DL Physical Exam General General Appearance: Well Developed, Well Nourished, No Acute Distress, Comfortable, Sleeping Eyes Eye Exam: Pupils Equal, Pupils Reactive Ears & Nose Ears & Nose Exam: Nasal Mucosa [place] Throat Throat Exam: Oral Mucosa [place] & Moist Neck Neck Exam: Neck Supple, Trachea Midline Pulmonary Resp Exam: Breath Sounds Equal, Decreased Bases Cardiology CV Exam: Good Perfusion, Irregular, Arrhythmia Gastrointestinal/Abdomen GI Exam: Soft, Non-Tender, Bowel Sounds Present, Non-Distended Genitourinary Remarks bilat nephrostomy tubes Musculoskeletal MS Exam: Joints Intact Integumentary Skin Exam: Warm, Dry Extremeties Extremities Exam: No Edema, Pedal Pulses Palpable Neurologic Neuro Exam: Awake, Oriented, Speech Clear, Moving All Extremities, No Focal Deficits Psychiatric Psych Exam: Appropriate Responses VTE Prophylaxis VTE Prophylaxis Device: SCDs VTE Prophylaxis Meds: Heparin Assessment/Plan Problem List: (1) Sepsis (2) Pneumonia (3) Renal insufficiency (4) Nephrolithiasis (5) UTI (urinary tract infection) (6) Atrial fibrillation (7) Bradycardia (8) BPH (benign prostatic hyperplasia) Assessment/Plan nephrolithiasis, bilat staghorn calculus, with indwelling left calcified ureteral stent. -appreciate urology input, will need bilateral nephrostomy tube placement, removal of his bladder stone that is attached to his left stent prior to definitive stone treatment for his staghorn calculi. Plan for bilat nephro placement, can be dc with tubes in place and f/u urology. -For BPH, urology recommends to continue Flomax and desir if difficulty voiding. -Xarelto on hold -went to IR on 05/26, s/p Bilateral nephrostomy tubes placed with ultrasound and fluoroscopic guidance, draining well -tolerated procedure well Acute renal injury-creat slowly improving -continue IVF, dec. to 50/hr -monitor renal function -avoid nephrotoxic agents Sepsis, UTI and PNA -continue abx -BC 05/25 2/2 GPC, sens. pending Afib, bradycardia, with hypotension. Yesterday elevated, given meds and IV narcs , BP dropped, better now -Continue Cardizem and Coreg with hold parameters -Telemetry monitoring -Continue Heparin for now, after urology procedures will resume Xarelto AMS, encephalopathy, likely sec. sepsis, better today -ammonia normal Labs in am Heparin for DVT prophylaxis PT eval and tx Keep in ICU, poss. transfer this afternoon if BP remains stable Continue with present tx, not ready for dc, wait for cultures OOB, IS D/W RN D/W Dr. Cota D/W pt. This patient was seen by myself and Dr. Cota, this note is written on his behalf Problem Qualifiers (1) Sepsis: Qualified Code: A41.9 - Sepsis, due to unspecified organism (2) Pneumonia: Qualified Code: J18.1 - Pneumonia of left lower lobe due to infectious organism (3) UTI (urinary tract infection): Qualified Code: N39.0 - Urinary tract infection with hematuria, site unspecified (4) Atrial fibrillation: Qualified Code: I48.2 - Chronic atrial fibrillation (5) BPH (benign prostatic hyperplasia): Fanny Napoles [facility] May 27, 2016 08:44
[2016-05-27] MEDS: CARVEDILOL 6.25 MG TAB PO SCH ×2 (09:00→20:35)
[2016-05-27] MEDS: DILTIAZEM HCL 30 MG TAB PO SCH ×4 (09:00→20:35)
[2016-05-27] MEDS: MORPHINE SULFATE 4 MG/ML INJ IV PUSH PRN ×2 (09:29→20:36)
[2016-05-27] MEDS: SODIUM CHLORIDE 0.9% FLUSH 5 ML FLUSH IV FLUSH SCH ×2 (09:29→20:36)
[2016-05-27] MEDS: PANTOPRAZOLE SOD 40 MG DELAYED RELEASE TAB PO SCH (09:29)
--- NOTE | 2016-05-27 14:09 | RADRPT ---
EXAM DATE/TIME: 05/26/2016 15:50 [facility] COMPARISON: PERCUTANEOUS ANTEGRADE PYELO,RT, May 26, 2016, 0:00. INDICATIONS : Patient is in need of placement of bilateral nephrostomy tubes due to bilateral renal calculi and hyd ronephrosis. MEDICAL HISTORY : History of bilateral staghorn renal calculi, bladder stones, left calcified ureteral stent, BPH, CVA, HTN, AFIB, pneumonia, anemia. SURGICAL HISTORY : History of ureteral stent placement. ENCOUNTER: Initial ACUITY: 1 day PAIN SCORE: 0/10 FLUORO TIME: 16.2 minutes SEDATION TIME: 45 minutes CONTRAST: 35 cc Omnipaque (iohexol) 350 MEDICATION(S): 1.) 3 mg midazolam (Versed) IV 2.) 150 mcg fentanyl (Sublimaze) IV DEVICE(S): 1.) 8 Hungarian 25cm Flexima catheter PROCEDURE : 1. Ultrasound-guided puncture of the kidney. 2. Antegrade percutaneous pyelogram. 3. Percutaneous nephrostomy placement. 4. Conscious sedation with continuous EKG and oximetry monitoring. The risks, benefits and alternatives to the procedure were explained and verbal and written consent w as obtained. The site was prepped in sterile fashion. Full sterile technique was used, including ca p, mask, sterile gloves and gown and a large sterile sheet. Hand hygiene and 2% chlorhexidine and/or betadine/alcohol prep was utilized per protocol for cutaneous antisepsis. The skin and subcutaneous tissues were infiltrated with local anesthetic solution. With ultrasound and fluoroscopic guidance the selected kidney was punctured and a percutaneous antegr agnes pyelogram was performed demonstrating a dilated collecting system. Serial dilatation was perform ed and an 8 Hungarian nephrostomy tube was placed within the renal pelvis and sutured in place. A small injection of contrast demonstrated to be in excellent position. The exam did demonstrate a la rge stone within the collecting system. Conscious sedation was performed with the prescribed dosages and duration as above. The patient tole rated the procedure well and there were no complications. EKG and oximetry remained stable throughou t the procedure. The patient was sent to post anesthesia recovery in stable condition. CONCLUSION: Uncomplicated nephrostomy tube placement as above. Florentin Castillo MD on May 27, 2016 at 14:07 Board Certified Radiologist. This report was verified electronically.
--- NOTE | 2016-05-27 14:11 | RADRPT ---
EXAM DATE/TIME: 05/26/2016 15:50 [facility] COMPARISON: PERCUTANEOUS ANTEGRADE PYELO,RT, May 26, 2016, 0:00. INDICATIONS : Patient is in need of placement of bilateral nephrostomy tubes due to bilateral renal calculi and hyd ronephrosis. MEDICAL HISTORY : Patient is in need of placement of bilateral nephrostomy tubes due to bilateral renal calculi and hyd ronephrosis. SURGICAL HISTORY : History of ureteral stent placement. ENCOUNTER: Initial ACUITY: 1 day PAIN SCORE: 0/10 FLUORO TIME: 16.2 minutes SEDATION TIME: 45 minutes CONTRAST: 35 cc Omnipaque (iohexol) 350 MEDICATION(S): 1.) 3 mg midazolam (Versed) IV 2.) 150 mcg fentanyl (Sublimaze) IV DEVICE(S): 1.) 8 [place]raini 25cm Flexima catheter PROCEDURE : 1. Ultrasound-guided puncture of the kidney. 2. Antegrade percutaneous pyelogram. 3. Percutaneous nephrostomy placement. 4. Conscious sedation with continuous EKG and oximetry monitoring. The risks, benefits and alternatives to the procedure were explained and verbal and written consent w as obtained. The site was prepped in sterile fashion. Full sterile technique was used, including ca p, mask, sterile gloves and gown and a large sterile sheet. Hand hygiene and 2% chlorhexidine and/or betadine/alcohol prep was utilized per protocol for cutaneous antisepsis. The skin and subcutaneous tissues were infiltrated with local anesthetic solution. With ultrasound and fluoroscopic guidance the selected kidney was punctured and a percutaneous antegr agnes pyelogram was performed demonstrating a dilated collecting system with numerous large stones fill ing the collecting system and stone encasement of the patient's ureteral stent. Serial dilatation wa s performed and a N8 [place] nephrostomy tube was placed within the renal pelvis and sutured in place. Conscious sedation was performed with the prescribed dosages and duration as above. The patient tole rated the procedure well and there were no complications. EKG and oximetry remained stable throughou t the procedure. The patient was sent to post anesthesia recovery in stable condition. CONCLUSION: 1. There are stones evident filling the entire collecting system of the right kidney. The nephrostomy tube had to be coiled in a dilated upper pole calyx as the renal pelvis is completely stone filled. 2. There is stone encasement of the patient's ureteral stent. Florentin Castillo MD on May 27, 2016 at 14:08 Board Certified Radiologist. This report was verified electronically.
[2016-05-27] MEDS: TAMSULOSIN HCL 0.4 MG CAP PO SCH (20:35)
[2016-05-27] MEDS: MIRTAZAPINE 15 MG TAB PO SCH (20:35)
[2016-05-28] VITALS (13 sets, daily range): BP systolic 117–150; BP diastolic 56–84; PULSE 56–91; RESP 12–20; TEMP 97.5–98.6; O2SAT 94–99
[2016-05-28] MEDS: SODIUM CHLOR 0.9% 1000 ML INJ 1,000 ML IV SCH ×2 (01:20→20:20)
[2016-05-28] MEDS: CHLORHEXIDINE GLUCONATE 2 % 1 PACK (2 CLOTHS)(taper/protocol) TOP SCH (04:00)
[2016-05-28] MEDS: cefTRIAXone INJ 1,000 MG in SODIUM CHLORIDE 0.9% INJ 100 ML IV SCH (04:08)
[2016-05-28] MEDS: AZITHROMYCIN INJ 500 MG in SODIUM CHLOR 0.9% 250 ML INJ 250 ML IV SCH (05:14)
[2016-05-28] MEDS: HEPARIN SODIUM - SQ 10,000 UNITS/ML VIAL SQ SCH ×2 (05:15→18:00)
[2016-05-28 08:43] LABS: HEMATOCRIT 37.7 % (39.0-51.0); MEAN CELL VOLUME 96.1 FL (80.0-100.0); MEAN CORPUSCULAR HEMOGLOBIN 30.8 PG (27.0-34.0); PLATELET COUNT 129 TH/MM3 (150-450); RED BLOOD COUNT 3.92 MIL/MM3 (4.50-5.90); RED CELL DISTRIBUTION WIDTH 15.2 % (11.6-17.2); REVIEW FLAG FINAL; WHITE BLOOD COUNT 12.1 TH/MM3 (4.0-11.0)
[2016-05-28 09:01] LABS: BICARBONATE 22.7 MEQ/L (21.0-32.0)
[2016-05-28] MEDS: DILTIAZEM HCL 30 MG TAB PO SCH ×4 (09:04→20:20)
[2016-05-28] MEDS: PANTOPRAZOLE SOD 40 MG DELAYED RELEASE TAB PO SCH (09:04)
[2016-05-28] MEDS: CARVEDILOL 6.25 MG TAB PO SCH ×2 (09:04→20:19)
[2016-05-28] MEDS: SODIUM CHLORIDE 0.9% FLUSH 5 ML FLUSH IV FLUSH SCH ×2 (09:06→20:20)
[2016-05-28] MEDS: MORPHINE SULFATE 4 MG/ML INJ IV PUSH PRN (09:06)
--- NOTE | 2016-05-28 10:58 | HHI.PR ---
Subjective History of Present Illness Subjective Remarks S/P bilat nephro tube placement 05/26 draining well flank pain stable, but still persists, Rt. UQ awakes to voice, oriented x 3, more alert today no n/v eating okay, slow improvement BP improved. no cp no sob Hospital Day: 4 Subjective Remarks I'm feeling some better. Review of Systems Constitutional Constitutional: Fatigue, Weakness (10 Pt ROS. Postive for fatique, weakness. but slow improvement. Pain rt. UQ. Otherwise negative exam) GI/Abdomen GI/Abdomen Remarks RT UQ pain continues Genitourinary Remarks Nephro tube. Musculoskeletal MS: Swelling MS Remarks Trace edema ángel LE Vitals/Results Intake & Output 05/27/16 05/27/16 05/28/16 15:00 23:00 07:00 Intake Total 400 ml 919 ml 880 ml Output Total 320 ml 675 ml 250 ml Balance 80 ml 244 ml 630 ml Intake Oral 400 ml 480 ml 300 ml IV Total 439 ml 580 ml Output Urine Total 320 ml Drainage Total 675 ml 250 ml # Bowel Movements 0 Vital Signs Vital Signs Date Time Temp Pulse Resp B/P Pulse Ox O2 Delivery O2 Flow Rate FiO2 05/28/16 09:10 20 05/28/16 06:00 71 05/28/16 04:00 62 05/28/16 04:00 98.1 62 12 119/56 96 05/28/16 02:00 72 05/28/16 00:00 98.2 66 14 117/66 98 05/28/16 00:00 66 05/27/16 22:00 72 05/27/16 20:00 73 05/27/16 20:00 99 Nasal Cannula 4.00 05/27/16 20:00 98.0 73 17 110/64 98 05/27/16 19:12 100 Nasal Cannula 2.00 05/27/16 18:00 61 05/27/16 16:00 97.9 58 20 137/88 100 05/27/16 16:00 56 05/27/16 14:00 61 05/27/16 12:00 56 CBC/BMP: 05/28/16 0749 05/28/16 0749 Lab Results Laboratory Tests Test 05/28/16 07:49 White Blood Count 12.1 TH/MM3 Red Blood Count 3.92 MIL/MM3 Hemoglobin 12.1 GM/DL Hematocrit 37.7 % Mean Corpuscular Volume 96.1 FL Mean Corpuscular Hemoglobin 30.8 PG Mean Corpuscular Hemoglobin 32.0 % Concent Red Cell Distribution Width 15.2 % Platelet Count 129 TH/MM3 Mean Platelet Volume 9.3 FL Sodium Level 144 MEQ/L Potassium Level 4.0 MEQ/L Chloride Level 112 MEQ/L Carbon Dioxide Level 22.7 MEQ/L Anion Gap 9 MEQ/L Blood Urea Nitrogen 41 MG/DL Creatinine 1.78 MG/DL Estimat Glomerular Filtration 37 ML/MIN Rate Random Glucose 103 MG/DL Calcium Level 8.5 MG/DL Physical Exam General General Appearance: Well Developed, Well Nourished, No Acute Distress, Comfortable, Sleeping Appearance Remarks Rt. UQ discomfort. Off and on. Eyes Eye Exam: Pupils Equal, Pupils Reactive Ears & Nose Ears & Nose Exam: Nasal Mucosa [place] Throat Throat Exam: Oral Mucosa [place] & Moist Neck Neck Exam: Neck Supple, Trachea Midline Pulmonary Resp Exam: Breath Sounds Equal, Decreased Bases Cardiology CV Exam: Good Perfusion, Irregular, Arrhythmia Gastrointestinal/Abdomen GI Exam: Soft, Non-Tender, Bowel Sounds Present, Non-Distended Musculoskeletal MS Exam: Joints Intact Integumentary Skin Exam: Warm, Dry Extremeties Extremities Exam: No Edema, Pedal Pulses Palpable Neurologic Neuro Exam: Awake, Oriented, Speech Clear, Moving All Extremities, No Focal Deficits Psychiatric Psych Exam: Appropriate Responses VTE Prophylaxis VTE Prophylaxis Device: SCDs VTE Prophylaxis Meds: Heparin Assessment/Plan Problem List: (1) Sepsis (2) Pneumonia (3) Renal insufficiency (4) Nephrolithiasis (5) UTI (urinary tract infection) (6) Atrial fibrillation (7) Bradycardia (8) BPH (benign prostatic hyperplasia) Assessment/Plan nephrolithiasis, bilat staghorn calculus, with indwelling left calcified ureteral stent. -appreciate urology input, will need bilateral nephrostomy tube placement, removal of his bladder stone that is attached to his left stent prior to definitive stone treatment for his staghorn calculi. Plan for bilat nephro placement, can be dc with tubes in place and f/u urology. -For BPH, urology recommends to continue Flomax and desir if difficulty voiding. -Xarelto on hold -went to IR on 05/26, s/p Bilateral nephrostomy tubes placed with ultrasound and fluoroscopic guidance, draining well -tolerated procedure well Acute renal injury-creat slowly improving -continue IVF, dec. to 50/hr -monitor renal function -avoid nephrotoxic agents Sepsis, UTI and PNA -continue abx -BC 05/25 2/2 GPC, sens. pending Afib, bradycardia, with hypotension. Yesterday elevated, given meds and IV narcs , BP dropped, better today -Continue Cardizem and Coreg with hold parameters -Telemetry monitoring -Continue Heparin for now, after urology procedures will resume Xarelto AMS, encephalopathy, likely sec. sepsis, better today -ammonia normal CBC in am, monitor WBS ct. Heparin for DVT prophylaxis PT eval and tx Keep in ICU, poss. transfer this afternoon if BP remains stable Continue with present tx, not ready for dc, wait for cultures OOB, today. Better D/W RN D/W Dr. Cota D/W pt. This patient was seen by myself and Dr. Cota, this note is written on his behalf Problem Qualifiers (1) Sepsis: Qualified Code: A41.9 - Sepsis, due to unspecified organism (2) Pneumonia: Qualified Code: J18.1 - Pneumonia of left lower lobe due to infectious organism (3) UTI (urinary tract infection): Qualified Code: N39.0 - Urinary tract infection with hematuria, site unspecified (4) Atrial fibrillation: Qualified Code: I48.2 - Chronic atrial fibrillation (5) BPH (benign prostatic hyperplasia): Mackenzie Solis May 28, 2016 10:58
--- NOTE | 2016-05-28 12:45 | MB ---
cc: CASEY CORNEJO MD DATE OF CONSULTATION 05/28/[address] Cota REASON FOR CONSULTATION Gram-positive bacteremia. Complicated UTI/pyelonephritis. HISTORY OF PRESENT ILLNESS This is a 80-year-old white male who presented to the emergency department on 05/25 with generalized weakness and fever. The patient was having difficulty getting out of bed because of weakness. He was found to have temperature of 103 degrees in the emergency department along with elevated heart rate of 110 and a white blood cell count of 15.6 along with elevated lactic acid level and acute kidney disease with creatinine of 2.65. The patient has a history of bilateral kidney stones and a left ureteral stent which was placed two years ago. The patient was followed up by his physicians in [place] and they did not feel the stent needed to be removed. The patient was told by the physician who inserted the stent that it needs to be removed at some point. The patient reports that he was doing well before he developed weakness prompting his presentation to the emergency department. He also developed some nausea and noted that he was having urinary frequency and also developed some epigastric discomfort as well. The patient underwent bilateral nephrostomy tube placement. Cultures were taken from the urine on 05/25 and culture has mixed gram-positive bacteria. Blood cultures on 05/25 have staph coagulase negative in one of four bottles and a second bottle has gram-positive cocci. These are anaerobic bottles. His white count improved down to 8.9 and then started climbing again and went up to 15.1 yesterday. The patient notes that he has mild pain in the right flank and lower abdomen region. Reports the level of pain as 3/10. He is sitting up in the bedside chair and he is awake and alert and seems to be in no acute distress. His temperature is currently normal. The urine in the nephrostomy collection is clear. The patient tells me that he had chills yesterday, but none today. Chest x-ray on 05/26 shows mild bibasilar airspace disease. PAST MEDICAL HISTORY 1. Blood infection one year ago treated with IV antibiotics in [place]. 2. Cardiovascular accident 3. Bilateral kidney stones 4. Chronic atrial fibrillation 5. GERD 6. Benign prostatic hypertrophy 7. Depression ALLERGIES NO KNOWN DRUG ALLERGIES. MEDICATIONS 1. Azithromycin 2. Ceftriaxone 3. Morphine sulfate 4. Coreg 5. Remeron 6. Flomax 7. Cardizem 8. Protonix 9. Subcutaneous heparin SOCIAL HISTORY The patient is retired. 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 No alcohol use. No illicit drug use. No tobacco use. The patient moved to this area from [place] two months ago. He has children who live here in [place]. FAMILY HISTORY Noncontributory REVIEW OF SYSTEMS GENERAL: Significant for chills and fever on admission. HEAD, EYES, EARS, NOSE, AND THROAT: No difficulty with vision. No difficulty swallowing or soreness of the throat. No nasal bleeding. CARDIOVASCULAR: No palpitation or chest pain. RESPIRATORY: No cough or shortness of breath. GASTROINTESTINAL: Significant for right lower quadrant abdominal pain. Nausea on admission. GENITOURINARY: Significant for urinary frequency. HEMATOPOETIC: No easy bruising or bleeding. ENDOCRINE: No polyuria or polydipsia. INTEGUMENTARY: No skin rash or itching. NEUROLOGIC: The patient has right-sided weakness. PHYSICAL EXAMINATION GENERAL: This is a well-developed male who appears well-nourished. He is in no acute distress. VITAL SIGNS: Includes a temperature 98.1, blood pressure 130/84, heart rate 99, respirations 16. HEENT: Head is atraumatic. Extraocular movements grossly intact. No conjunctival erythema. No icterus. Nose, no bleeding. Nasal septum midline. Oropharynx, no visible lesions. Moist mucosa. NECK: Supple without adenopathy or swelling. LUNGS: Clear breath sounds bilateral which are diminished at the bases. HEART: Irregular rate and rhythm. No audible murmurs or rubs or gallops. ABDOMEN: Bowel sounds present, soft, nontender on palpation. Bilateral nephrostomy tube exits the flanks and has clear tho urine. RECTAL: Not performed. EXTREMITIES: 1+ edema of the right ankle. Otherwise no clubbing or cyanosis. Pulses are symmetric 2+ in the upper and lower extremities. SKIN: No diffuse rash. Nero8 Weakness of the upper and lower extremities otherwise nonfocal. LABORATORY DATA WBC 12.1, platelets 129, hemoglobin 12.1. Creatinine 1.78, BUN 41, sodium 144, estimated GFR of 37. CT scan of abdomen on 05/25 showed bilateral staghorn type renal calculi at the left double-J stent and also obstructing stone at the proximal right ureter measuring 5 mm and causing mild hydronephrosis and also moderate enlargement of the prostate was noted. IMPRESSION 1. Severe sepsis 2. Pyelonephritis 3. Leukocytosis secondary to infection 4. Abnormal urinalysis 5. Bacteremia due to gram positive bacteria, questionable significance at this time since it is showing up only in anaerobic bottles and the bacteria is identified as Staph coagulase negative in a patient who does not appear to have a clear obvious source for Staph infection. The patient was severe sepsis indicated by elevated white blood cell count, temperature, lactic acid level, heart rate and renal insufficiency. RECOMMENDATIONS 1. Repeat the blood cultures 2. Continue ceftriaxone for urinary system coverage. 3. Continue azithromycin for possible pneumonia. 4. Monitor white blood cell count and temperature and clinical status. 5. Antibiotic adjustments for the patient's renal function. At this point, I would not add to gram-positive antibiotic coverage, but follow up the repeat blood cultures. Thank you for this consultation. I will monitor the patient's progress along with you and will make further recommendations on follow up if necessary. Casey Cornejo MD FD/CHARLES /12:03 PM /12:27 PM
[2016-05-28] MEDS: TAMSULOSIN HCL 0.4 MG CAP PO SCH (20:19)
[2016-05-28] MEDS: MIRTAZAPINE 15 MG TAB PO SCH (20:20)
[2016-05-29] VITALS (15 sets, daily range): BP systolic 129–159; BP diastolic 67–78; PULSE 52–103; RESP 18–21; TEMP 97.7–98.9; O2SAT 97–100
[2016-05-29] MEDS: CHLORHEXIDINE GLUCONATE 2 % 1 PACK (2 CLOTHS)(taper/protocol) TOP SCH (04:00)
[2016-05-29] MEDS: cefTRIAXone INJ 1,000 MG in SODIUM CHLORIDE 0.9% INJ 100 ML IV SCH (05:16)
[2016-05-29] MEDS: MORPHINE SULFATE 4 MG/ML INJ IV PUSH PRN (05:16)
[2016-05-29] MEDS: AZITHROMYCIN INJ 500 MG in SODIUM CHLOR 0.9% 250 ML INJ 250 ML IV SCH (05:16)
[2016-05-29] MEDS: HEPARIN SODIUM - SQ 10,000 UNITS/ML VIAL SQ SCH ×2 (05:17→18:39)
[2016-05-29 07:13] LABS: BICARBONATE 25.3 MEQ/L (21.0-32.0); POTASSIUM 3.8 MEQ/L (3.5-5.1)
[2016-05-29] MEDS: DILTIAZEM HCL 30 MG TAB PO SCH ×4 (10:39→21:02)
[2016-05-29] MEDS: PANTOPRAZOLE SOD 40 MG DELAYED RELEASE TAB PO SCH (10:39)
[2016-05-29] MEDS: SODIUM CHLORIDE 0.9% FLUSH 5 ML FLUSH IV FLUSH SCH ×2 (10:39→19:53)
[2016-05-29] MEDS: CARVEDILOL 6.25 MG TAB PO SCH ×2 (10:39→21:00)
--- NOTE | 2016-05-29 11:15 | HHI.PR ---
Subjective History of Present Illness Subjective Remarks S/P bilat nephro tube placement 05/26 draining well 1050 out last 24 hour. Totals -608 for for 24 hours flank pain stable, but still persists, Rt. UQ awakes to voice, oriented x 3, fatigue, tiring today no n/v eating okay, slow improvement BP improved. no cp no sob Right flank pain off and on. Pain management Hospital Day: 5 Subjective Remarks I'm feeling tired today. (Mackenzie Solis) Review of Systems Constitutional Constitutional: Fatigue, Weakness (10 Pt ROS. Postive for fatique, weakness. but slow improvement. Pain rt. UQ. Otherwise negative exam) (Mackenzie Solis) Pulmonary Respiratory: Shortness of Breath (low air volumes) (Mackenzie Solis) GI/Abdomen GI/Abdomen Remarks RT UQ pain continues, with flank pain (Mackenzie Solis) Genitourinary Remarks Bilateral Nephro tubes (Mackenzie Solis) Musculoskeletal MS: Weakness (generalized), Swelling MS Remarks Trace edema ángel LE (Mackenzie Solis) Vitals/Results Intake & Output 05/28/16 05/28/16 05/29/16 15:00 23:00 07:00 Intake Total 442 ml Output Total 550 ml 500 ml Balance -550 ml -58 ml IV Total 442 ml Output Urine Total 150 ml Drainage Total 550 ml 350 ml Vital Signs Vital Signs Date Time Temp Pulse Resp B/P Pulse Ox O2 Delivery O2 Flow Rate FiO2 05/29/16 10:00 70 05/29/16 08:57 100 Nasal Cannula 2.00 05/29/16 08:00 96 Nasal Cannula 4.00 05/29/16 08:00 80 05/29/16 06:00 87 05/29/16 05:25 20 05/29/16 04:00 62 05/29/16 04:00 98.9 62 20 141/67 99 05/29/16 02:00 52 05/29/16 00:00 97.8 103 21 146/69 97 05/29/16 00:00 103 05/28/16 22:00 76 05/28/16 20:16 95 Nasal Cannula 2.00 05/28/16 20:00 76 05/28/16 20:00 97.5 76 20 142/78 94 05/28/16 20:00 94 Nasal Cannula 4.00 05/28/16 18:00 71 05/28/16 16:00 98.0 91 20 150/81 97 05/28/16 16:00 62 05/28/16 14:00 71 05/28/16 12:00 97.9 56 18 130/84 98 05/28/16 12:00 62 (Mackenzie Solis) CBC/BMP: 05/28/16 0749 05/29/16 0537 Lab Results Laboratory Tests Test 05/29/16 05:37 Sodium Level 147 MEQ/L Potassium Level 3.8 MEQ/L Chloride Level 114 MEQ/L Carbon Dioxide Level 25.3 MEQ/L Anion Gap 8 MEQ/L Blood Urea Nitrogen 36 MG/DL Creatinine 1.49 MG/DL Estimat Glomerular Filtration 45 ML/MIN Rate Random Glucose 106 MG/DL Calcium Level 8.6 MG/DL Microbiology Microbiology Date/Time Procedure Status Source Growth 05/28/16 14:20 Aerobic Blood Culture Resulted Blood Peripheral Pending 05/28/16 14:20 Anaerobic Blood Culture - Final Resulted Blood Peripheral QNS - SEE AEROBE REPORT 05/28/16 14:25 Aerobic Blood Culture Resulted Blood Peripheral Pending 05/28/16 14:25 Anaerobic Blood Culture - Final Resulted Blood Peripheral QNS - SEE AEROBE REPORT Last Impressions Nephrostomy 05/26/16 0000 Signed Impressions: Service Date/Time: Thursday, May 26, 2016 15:50 - CONCLUSION: 1. There are stones evident filling the entire collecting system of the right kidney. The nephrostomy tube had to be coiled in a dilated upper pole calyx as the renal pelvis is completely stone filled. 2. There is stone encasement of the patient' s ureteral stent. Florentin Castillo MD Chest X-Ray 05/26/16 0000 Signed Impressions: Service Date/Time: Thursday, May 26, 2016 19:10 - CONCLUSION: 1. Mild basilar airspace disease. Cardiomegaly. No pneumothorax. Sky Hernandes MD Abdomen/Pelvis CT 05/25/16 0427 Signed Impressions: Service Date/Time: Wednesday, May 25, 2016 04:31 - CONCLUSION: 1. Bilateral staghorn type renal calculi and left double J stent in place with concretion calcifications both proximal and distal. 2. There is also an obstructing stone in the proximal right ureter measuring 5 mm and causing mild right hydronephrosis. 3. Bilateral fat containing inguinal hernias, small right pleural effusion, probable pericardial effusion, and moderate enlargement of the prostate. Grayson Alcala MD Microbiology 05/28/16 Aerobic Blood Culture, Resulted Pending 05/28/16 Anaerobic Blood Culture - Final, Resulted QNS - SEE AEROBE REPORT 05/28/16 Aerobic Blood Culture, Resulted Pending 05/28/16 Anaerobic Blood Culture - Final, Resulted QNS - SEE AEROBE REPORT Imaging Remarks Last Impressions Nephrostomy 05/26/16 0000 Signed Impressions: Service Date/Time: Thursday, May 26, 2016 15:50 - CONCLUSION: 1. There are stones evident filling the entire collecting system of the right kidney. The nephrostomy tube had to be coiled in a dilated upper pole calyx as the renal pelvis is completely stone filled. 2. There is stone encasement of the patient' s ureteral stent. Florentin Castillo MD Chest X-Ray 05/26/16 0000 Signed Impressions: Service Date/Time: Thursday, May 26, 2016 19:10 - CONCLUSION: 1. Mild basilar airspace disease. Cardiomegaly. No pneumothorax. Sky Hernandes MD Abdomen/Pelvis CT 05/25/16 0427 Signed Impressions: Service Date/Time: Wednesday, May 25, 2016 04:31 - CONCLUSION: 1. Bilateral staghorn type renal calculi and left double J stent in place with concretion calcifications both proximal and distal. 2. There is also an obstructing stone in the proximal right ureter measuring 5 mm and causing mild right hydronephrosis. 3. Bilateral fat containing inguinal hernias, small right pleural effusion, probable pericardial effusion, and moderate enlargement of the prostate. Grayson Alcala MD (Mackenzie Solis) Physical Exam General General Appearance: Well Developed, Well Nourished, No Acute Distress, Comfortable, Sleeping, Obese Appearance Remarks Rt. UQ discomfort. Off and on. (Mackenzie Solis) Eyes Eye Exam: Pupils Equal, Pupils Reactive (Irma,Mackenzie M. [employer]) Ears & Nose Ears & Nose Exam: Nasal Mucosa Wine[place] ([place] M. DIRECTOR [employer]) Throat Throat Exam: Oral Mucosa [place] & Moist ([place] M. DIRECT[employer]) Neck Neck Exam: Neck Supple, Trachea Midline ([place] M. DIRECTOR [employer]) Pulmonary Resp Exam: Breath Sounds Equal, Decreased Bases, Diminished Breath Sounds, Poor Inspiratory Effort (IrmaMackenzie M. DIRECT[employer]) Cardiology CV Exam: Good Perfusion, Irregular, Arrhythmia ([place] M. DIRECTOR [employer]) Gastrointestinal/Abdomen GI Exam: Soft, Non-Tender, Bowel Sounds Present, Non-Distended GI Remarks Rt. nephrostomy tube (IrmaMackenzie M. DIRECT[employer]) Genitourinary Exam: Clear Urine (IrmaMackenzie M. DIRECT[employer]) Musculoskeletal MS Exam: Joints Intact ([place]ack[place] M. DIRECTOR [employer]) Integumentary Skin Exam: Warm, Dry (IrmaMackenzie M. DIRECT[employer]) Extremeties Extremities Exam: No Edema, Pedal Pulses Palpable, Trace Edema Extremeties Remarks 1+ right leg edema. Trace left lower leg (IrmaMackenzie M. DIRECT[employer]) Neurologic Neuro Exam: Awake, Oriented, Speech Clear, Moving All Extremities, No Focal Deficits (IrmaMackenzie M. DIRECT[employer]) Psychiatric Psych Exam: Appropriate Responses ([place] M. DIRECT[employer]) VTE Prophylaxis VTE Prophylaxis Device: SCDs VTE Prophylaxis Meds: Heparin (IrmaMackenzie M. DIRECT[employer]) Tubes & Lines Tubes & Lines Right Nephrostomy tube (IrmaMackenzie M. DIRECT[employer]) Assessment/Plan Problem List: (1) Sepsis (2) Pneumonia (3) Renal insufficiency (4) Nephrolithiasis (5) UTI (urinary tract infection) (6) Atrial fibrillation (7) Bradycardia (8) BPH (benign prostatic hyperplasia) Assessment/Plan nephrolithiasis, bilat staghorn calculus, with indwelling left calcified ureteral stent. -appreciate urology input, will need bilateral nephrostomy tube placement, removal of his bladder stone that is attached to his left stent prior to definitive stone treatment for his staghorn calculi. Plan for bilat nephro placement, can be dc with tubes in place and f/u urology. -For BPH, urology recommends to continue Flomax and desir if difficulty voiding. -Xarelto on hold -went to IR on 05/26, s/p Bilateral nephrostomy tubes placed with ultrasound and fluoroscopic guidance, draining well -tolerated procedure well Acute renal injury-creat slowly improving -continue IVF, dec. to 50/hr -monitor renal function, improvement noted on labs today. BUNs 36, creatinine 1.49 -avoid nephrotoxic agents Sepsis, UTI and PNA -continue abx -BC 05/25 2/ GPC, sens. Gm positive. May need to repeat blood cultures in a few days per ID recommendations Afib, bradycardia, with hypotension. Yesterday elevated, given meds and IV narcs , BP dropped, better today -Continue Cardizem and Coreg with hold parameters -Telemetry monitoring -Continue Heparin for now, after urology procedures will resume Xarelto AMS, encephalopathy, likely sec. sepsis, better today -ammonia normal CBC in am, monitor WBS ct. BMP in am. monitor renal function and electrolytes. Heparin for DVT prophylaxis PT eval and tx Keep in ICU, poss. transfer this afternoon if BP remains stable Continue with present tx, not ready for dc, wait for cultures OOB, today. Better Vascular ultrasound today Continue ceftriaxone for urinary system coverage. Continue azithromycin for possible pneumonia. Antibiotic adjustments for the patient's renal function. D/W RN D/W Dr. Cota D/W pt. This patient was seen by myself and Dr. Cota, this note is written on his behalf (Mackenzie Solis) Assessment/Plan pt is seen & examined d/w PT d/w mackenzie ID f/u , Vanco dose repeat Blood c/s neg so far am ;labs will f/u (Fredy Cota MD) Problem Qualifiers (1) Sepsis: Qualified Code: A41.9 - Sepsis, due to unspecified organism (2) Pneumonia: Qualified Code: J18.1 - Pneumonia of left lower lobe due to infectious organism (3) UTI (urinary tract infection): Qualified Code: N39.0 - Urinary tract infection with hematuria, site unspecified (4) Atrial fibrillation: Qualified Code: I48.2 - Chronic atrial fibrillation (5) BPH (benign prostatic hyperplasia): Mackenzie Solis May 29, 2016 11:15 Fredy Cota MD May 29, 2016 14:52
[2016-05-29 12:02] LABS: HEMATOCRIT 37.4 % (39.0-51.0); MEAN CELL VOLUME 94.7 FL (80.0-100.0); MEAN CORPUSCULAR HEMOGLOBIN 30.4 PG (27.0-34.0); MEAN CORPUSCULAR HGB CONC 32.1 % (32.0-36.0); PLATELET COUNT 128 TH/MM3 (150-450); RED BLOOD COUNT 3.95 MIL/MM3 (4.50-5.90); RED CELL DISTRIBUTION WIDTH 15.2 % (11.6-17.2); REVIEW FLAG FINAL; WHITE BLOOD COUNT 9.8 TH/MM3 (4.0-11.0)
--- NOTE | 2016-05-29 13:46 | HHI.IDPN ---
Note Infectious Disease Note Seen for Gram-positive bacteremia and Complicated UTI/pyelonephritis. Patient presented to the emergency department on 05/25 with generalized weakness and fever. Feels better today. Has r. lower abdomen pain same as yesterday. Afebrile. 3 of 4 bottles of the initial blood culture has staph coag negative. PAST MEDICAL HISTORY 1. Blood infection one year ago treated with IV antibiotics in [place]. 2. Cardiovascular accident 3. Bilateral kidney stones 4. Chronic atrial fibrillation 5. GERD 6. Benign prostatic hypertrophy 7. Depression ALLERGIES NO KNOWN DRUG ALLERGIES. MEDICATIONS 1. Azithromycin 2. Ceftriaxone SOCIAL HISTORY No alcohol use. No illicit drug use. No tobacco use. The patient moved to this area from [place] two months ago. He has children who live here in [place]. FAMILY HISTORY Noncontributory IMAGING: Nephrostomy 05/26/16 0000 Signed Impressions: Service Date/Time: Thursday, May 26, 2016 15:50 - CONCLUSION: 1. There are stones evident filling the entire collecting system of the right kidney. The nephrostomy tube had to be coiled in a dilated upper pole calyx as the renal pelvis is completely stone filled. 2. There is stone encasement of the patient' s ureteral stent. Florentin Castillo MD Chest X-Ray 05/26/16 0000 Signed Impressions: Service Date/Time: Thursday, May 26, 2016 19:10 - CONCLUSION: 1. Mild basilar airspace disease. Cardiomegaly. No pneumothorax. Sky Hernandes MD Abdomen/Pelvis CT 05/25/16 0427 Signed Impressions: Service Date/Time: Wednesday, May 25, 2016 04:31 - CONCLUSION: 1. Bilateral staghorn type renal calculi and left double J stent in place with concretion calcifications both proximal and distal. 2. There is also an obstructing stone in the proximal right ureter measuring 5 mm and causing mild right hydronephrosis. 3. Bilateral fat containing inguinal hernias, small right pleural effusion, probable pericardial effusion, and moderate enlargement of the prostate. Grayson Alcala MD PHYSICAL EXAMINATION GENERAL: no acute distress. HEENT: No icterus. Nose, no bleeding. Nasal septum midline. Oropharynx, no visible lesions. Moist mucosa. NECK: Supple without adenopathy or swelling. LUNGS: Clear breath sounds bilateral. HEART: Irregular rate and rhythm. No audible murmurs or rubs or gallops. ABDOMEN: Bowel sounds present, soft, nontender on palpation. The nephrostomy tubes has clear tho urine. EXTREMITIES: 1+ edema of the right ankle. No clubbing or cyanosis. Pulses are symmetric 2+ in the upper and lower extremities. SKIN: No diffuse rash. NEURO: Weakness of the upper and lower extremities. IMPRESSION 1. Severe sepsis. Staph coag negative. 2. Pyelonephritis 3. Leukocytosis secondary to infection. WBC lower. 4. Bacteremia due to gram positive bacteria. No clear source. RECOMMENDATIONS 1. Follow the repeat the blood cultures 2. Continue ceftriaxone for urinary system coverage. 3. Continue azithromycin for possible pneumonia. 4. Dose of Vancomycin. 5. Antibiotic adjustments for the patient's renal function. Maurilio Cornejo MD May 29, 2016 13:46
[2016-05-29] MEDS ORDERED: VANCOMYCIN INJ 1,250 MG in SODIUM CHLOR 0.9% 250 ML INJ 250 ML IV ONE (14:00)
[2016-05-29] MEDS: SODIUM CHLOR 0.9% 1000 ML INJ 1,000 ML IV SCH (19:52)
[2016-05-29] MEDS: MIRTAZAPINE 15 MG TAB PO SCH (21:02)
[2016-05-29] MEDS: TAMSULOSIN HCL 0.4 MG CAP PO SCH (21:02)
[2016-05-30] VITALS (8 sets, daily range): BP systolic 130–180; BP diastolic 71–100; PULSE 56–93; RESP 18–24; TEMP 97.3–98.6; O2SAT 95–99
[2016-05-30] MEDS: cefTRIAXone INJ 1,000 MG in SODIUM CHLORIDE 0.9% INJ 100 ML IV SCH (03:41)
[2016-05-30] MEDS: CHLORHEXIDINE GLUCONATE 2 % 1 PACK (2 CLOTHS)(taper/protocol) TOP SCH (03:42)
[2016-05-30] MEDS: AZITHROMYCIN INJ 500 MG in SODIUM CHLOR 0.9% 250 ML INJ 250 ML IV SCH (04:50)
[2016-05-30] MEDS: HEPARIN SODIUM - SQ 10,000 UNITS/ML VIAL SQ SCH ×2 (04:50→17:34)
[2016-05-30 07:49] LABS: HEMATOCRIT 35.1 % (39.0-51.0); MEAN CELL VOLUME 92.3 FL (80.0-100.0); MEAN CORPUSCULAR HEMOGLOBIN 30.7 PG (27.0-34.0); MEAN CORPUSCULAR HGB CONC 33.2 % (32.0-36.0); PLATELET COUNT 148 TH/MM3 (150-450); RED CELL DISTRIBUTION WIDTH 14.5 % (11.6-17.2); REVIEW FLAG FINAL; WHITE BLOOD COUNT 8.2 TH/MM3 (4.0-11.0)
[2016-05-30 08:20] LABS: BICARBONATE 27.4 MEQ/L (21.0-32.0)
[2016-05-30 08:21] LABS: POTASSIUM 4.2 MEQ/L (3.5-5.1)
[2016-05-30] MEDS: CARVEDILOL 6.25 MG TAB PO SCH ×2 (08:54→20:40)
[2016-05-30] MEDS: PANTOPRAZOLE SOD 40 MG DELAYED RELEASE TAB PO SCH (08:54)
[2016-05-30] MEDS: DILTIAZEM HCL 30 MG TAB PO SCH ×2 (08:54→12:50)
[2016-05-30] MEDS: SODIUM CHLORIDE 0.9% FLUSH 5 ML FLUSH IV FLUSH SCH ×2 (08:55→20:41)
[2016-05-30] MEDS: MORPHINE SULFATE 4 MG/ML INJ IV PUSH PRN ×2 (08:59→20:41)
[2016-05-30] MEDS: SODIUM CHLOR 0.9% 1000 ML INJ 1,000 ML IV SCH (12:51)
--- NOTE | 2016-05-30 15:15 | HHI.PR ---
Subjective History of Present Illness I am ok feels better pain is better controlled No N/V No fever or chills appetite is improving no abd pain no diarrhea offers no other c/o Hospital Day: 5 Review of Systems Constitutional Constitutional: Fatigue, Weakness (10 Pt ROS. Postive for fatique, weakness. but slow improvement. Pain rt. UQ. Otherwise negative exam) Pulmonary Respiratory: Shortness of Breath (low air volumes) Musculoskeletal MS: Weakness (generalized), Swelling Vitals/Results Intake & Output 05/29/16 05/29/16 05/30/16 15:00 23:00 07:00 Intake Total 889 ml 100 ml 460 ml Output Total 750 ml 550 ml 600 ml Balance 139 ml -450 ml -140 ml Intake Oral 480 ml 100 ml 0 ml IV Total 409 ml 460 ml Output Urine Total 50 ml 150 ml 0 ml Drainage Total 700 ml 400 ml 600 ml # Bowel Movements 0 0 Vital Signs Vital Signs Date Time Temp Pulse Resp B/P Pulse Ox O2 Delivery O2 Flow Rate FiO2 05/30/16 12:02 98.3 61 24 134/71 97 05/30/16 08:38 97 Nasal Cannula 2.00 05/30/16 08:02 97.9 75 24 180/90 95 05/30/16 08:00 Nasal Cannula 2.00 05/30/16 04:00 Nasal Cannula 2.00 05/30/16 03:52 97.3 56 18 145/71 99 05/30/16 00:30 98 Nasal Cannula 2.00 05/30/16 00:05 97.3 63 20 147/75 97 05/29/16 23:45 98 Nasal Cannula 4.00 05/29/16 21:13 52 05/29/16 21:04 62 05/29/16 20:00 Nasal Cannula 4.00 05/29/16 19:59 57 05/29/16 19:00 98.0 69 20 152/70 98 05/29/16 18:00 72 05/29/16 16:00 71 05/29/16 16:00 98.0 71 20 159/75 100 CBC/BMP: 05/30/16 0648 05/30/16 0648 Lab Results Laboratory Tests Test 05/30/16 06:48 White Blood Count 8.2 TH/MM3 Red Blood Count 3.80 MIL/MM3 Hemoglobin 11.7 GM/DL Hematocrit 35.1 % Mean Corpuscular Volume 92.3 FL Mean Corpuscular Hemoglobin 30.7 PG Mean Corpuscular Hemoglobin 33.2 % Concent Red Cell Distribution Width 14.5 % Platelet Count 148 TH/MM3 Mean Platelet Volume 9.5 FL Sodium Level 147 MEQ/L Potassium Level 4.2 MEQ/L Chloride Level 114 MEQ/L Carbon Dioxide Level 27.4 MEQ/L Anion Gap 6 MEQ/L Blood Urea Nitrogen 24 MG/DL Creatinine 1.19 MG/DL Estimat Glomerular Filtration 59 ML/MIN Rate Random Glucose 104 MG/DL Calcium Level 8.5 MG/DL Physical Exam General General Appearance: Well Developed, Well Nourished, No Acute Distress, Comfortable, Obese Eyes Eye Exam: Pupils Equal, Sclera White Ears & Nose Ears & Nose Exam: Nasal Mucosa [place] Throat Throat Exam: Oral Mucosa [place] & Moist Neck Neck Exam: Neck Supple, Trachea Midline Pulmonary Resp Exam: Clear Bilaterally, Breath Sounds Equal, No Distress Cardiology CV Exam: Irregular, Arrhythmia Gastrointestinal/Abdomen GI Exam: Soft, Non-Tender, Bowel Sounds Present, Non-Distended Genitourinary Exam: Clear Urine Remarks b/l PCN tubes in place Integumentary Skin Exam: Warm, Dry Extremeties Extremities Exam: No Edema, Pedal Pulses Palpable, Trace Edema Neurologic Neuro Exam: Alert, Awake, Oriented, Speech Clear, Moving All Extremities Psychiatric Psych Exam: Appropriate Responses VTE Prophylaxis VTE Prophylaxis Device: SCDs VTE Prophylaxis Meds: Heparin PUD Prophylasis PUD Prophylaxis: Protonix Assessment/Plan Problem List: (1) Sepsis (2) Pneumonia (3) Renal insufficiency (4) Nephrolithiasis (5) UTI (urinary tract infection) (6) Atrial fibrillation (7) Bradycardia (8) BPH (benign prostatic hyperplasia) Assessment/Plan blood c/s 2/2 +ve CONS repeat blood c/s remained neg IV abx R+Z & Vanco IVF renal function improved w PCN d/w Dr Gusman ,he rec IV Abx [vanco] for 5 more days plus Po Levaquin will order PICC line I also called & spoke w Dr frieda gunn , he rec abx /control of infection & than he will bring pt back in 1 tyo 2 wks for further urologic intervention. analesic BB change cardizem to CD resume xarelto pepcid PT ss for d./c planning/possible d/c to SNF in 1 to [address] quiles will f/u in am Problem Qualifiers (1) Sepsis: Qualified Code: A41.9 - Sepsis, due to unspecified organism (2) Pneumonia: Qualified Code: J18.1 - Pneumonia of left lower lobe due to infectious organism (3) UTI (urinary tract infection): Qualified Code: N39.0 - Urinary tract infection with hematuria, site unspecified (4) Atrial fibrillation: Qualified Code: I48.2 - Chronic atrial fibrillation (5) BPH (benign prostatic hyperplasia): Fredy Cota MD May 30, 2016 15:15
--- NOTE | 2016-05-30 15:42 | HHI.FF ---
Infusion Therapy Location of Infusion Therapy: [facility] Infusion Therapy Order Patient Information Patient Weight 113.6 kg Diagnosis: (1) Sepsis Coded Allergies: No Known Allergies (Unverified , 05/25/16) Administer Medication Vancomycin q 24 hours 1250mg IV Stop Treatment: Jun 04, 2016 Additional Information Venous access: PICC Line Additional Instructions [x] Peripheral flush and dressing changes per protocol [x] Implanted port and central anodizing line operator: * Implanted port: 10 ml Normal Saline followed by 5 ml Heparin 100 units/ml Heparin flush after each use and monthly to maintain. [] May leave port accessed during therapy. [] May leave peripheral site accessed for duration of therapy. [x] If patient has SOB or respiratory distress, check oxygen saturation. If less than 90% or clinical signs of respiratory distress, administer oxygen at 2 L/min. via nasal cannula and notify physician. [x] Anaphylaxis/Reaction orders: * Stop infusion. * Keep IV line open with saline flush. * Notify physician. * Monitor vital signs every 15 minutes until symptoms resolve. * Check Oxygen saturation; Oxygen at 2 L/min. via nasal cannula if less than 90% or clinical signs of respiratory distress. * Administer diphenhydramine (Benadryl) 25 mg IV STAT, (unless patient has received as pre-med). May repeat once, if necessary. * Solu-Cortef 250 mg IVP over 30-60 seconds, use 100 mg vials for each dissolution. * Epinephrine (1mg/1 ml) 0.3 mg subcutaneously or IVP now with any signs of respiratory distress. * Check with physician for new additional pre-med orders if patient is re- challenged or re-treated. [x] May remove PICC line when treatment complete, after confirming with Physician. [x] If the patient is admitted to the hospital, the ED, or transferred via [facility] , complete transfer form including medication reconciliation order sheet. Laboratory Tests Additional Information BMP every other day while on vancomycin. Vancomycin trough on 06/01 and 06/03 Fax results of labs to [phone]. Maurilio Bailey MD May 30, 2016 15:42
--- NOTE | 2016-05-30 15:49 | HHI.IDPN ---
Note Infectious Disease Note Seen for Gram-positive bacteremia and Complicated UTI/pyelonephritis. Patient presented to the emergency department on 05/25 with generalized weakness and fever. Feels okay. R. lower abdomen pain improved. 4 of 4 bottles of the initial blood culture has staph coag negative. Afebrile. PAST MEDICAL HISTORY 1. Blood infection one year ago treated with IV antibiotics in [place]. 2. Cerebrovascular accident 3. Bilateral kidney stones 4. Chronic atrial fibrillation 5. GERD 6. Benign prostatic hypertrophy 7. Depression ALLERGIES NO KNOWN DRUG ALLERGIES. MEDICATIONS 1. Azithromycin 2. Ceftriaxone 3. Intermittent vancomycin. SOCIAL HISTORY No alcohol use. No illicit drug use. No tobacco use. The patient moved to this area from [place] two months ago. He has children who live here in [place]. FAMILY HISTORY Noncontributory IMAGING: Nephrostomy 05/26/16 0000 Signed Impressions: Service Date/Time: Thursday, May 26, 2016 15:50 - CONCLUSION: 1. There are stones evident filling the entire collecting system of the right kidney. The nephrostomy tube had to be coiled in a dilated upper pole calyx as the renal pelvis is completely stone filled. 2. There is stone encasement of the patient' s ureteral stent. Florentin Castillo MD Chest X-Ray 05/26/16 0000 Signed Impressions: Service Date/Time: Thursday, May 26, 2016 19:10 - CONCLUSION: 1. Mild basilar airspace disease. Cardiomegaly. No pneumothorax. Sky Hernandes MD Abdomen/Pelvis CT 05/25/16 0427 Signed Impressions: Service Date/Time: Wednesday, May 25, 2016 04:31 - CONCLUSION: 1. Bilateral staghorn type renal calculi and left double J stent in place with concretion calcifications both proximal and distal. 2. There is also an obstructing stone in the proximal right ureter measuring 5 mm and causing mild right hydronephrosis. 3. Bilateral fat containing inguinal hernias, small right pleural effusion, probable pericardial effusion, and moderate enlargement of the prostate. Grayson Alcala MD PHYSICAL EXAMINATION GENERAL: no acute distress. HEENT: No icterus. Oropharynx, no visible lesions. Moist mucosa. NECK: Supple without adenopathy or swelling. LUNGS: Clear breath sounds. HEART: Irregular rate and rhythm. No audible murmurs or rubs or gallops. ABDOMEN: Bowel sounds present, soft, nontender on palpation. The nephrostomy tubes has clear tho urine. EXTREMITIES: trace edema of the right ankle. No clubbing or cyanosis. Pulses are symmetric 2+ in the upper and lower extremities. SKIN: No diffuse rash. NEURO: Weakness of the upper and lower extremities. IMPRESSION 1. Severe sepsis. Staph coag negative. Repeat blood culture negative. 2. Pyelonephritis 3. Leukocytosis secondary to infection. WBC lower. 4. Bacteremia due to gram positive bacteria. No clear source. Patient has kidney stones an urinary stents. 5. Acute kidney disease improving. RECOMMENDATIONS Dose of Vancomycin today and give daily dose for 5 more days while monitoring the creatinine. D/C Ceftriaxone and Zithromax. PO Levaquin for PNA. Abnormal CXR. Orders for vancomycin and labs written for outpatient. D/W Dr. Coat. Maurilio Cornejo MD May 30, 2016 15:49
[2016-05-30] MEDS ORDERED: VANCOMYCIN INJ 1,250 MG in SODIUM CHLOR 0.9% 250 ML INJ 250 ML IV ONE (16:00)
--- NOTE | 2016-05-30 18:38 | RADRPT ---
EXAM DATE/TIME: 05/30/2016 18:06 [facility] COMPARISON: CHEST SINGLE AP, May 26, 2016, 19:10. INDICATIONS : PICC line placement MEDICAL HISTORY : None. SURGICAL HISTORY : None. ENCOUNTER: Initial ACUITY: 1 day PAIN SCORE: 0/10 LOCATION: Left chest FINDINGS: Left subclavian PICC line is present with tip overlapping the expected region of the SVC. There is im provement in the aeration of the lungs with slight perivascular parenchymal processes remaining most likely pulmonary edema. The rest of the examination has not significantly changed. CONCLUSION: Improvement in the aeration of the lungs. Gustavo Quigley MD on May 30, 2016 at 18:35 Board Certified Radiologist. This report was verified electronically.
[2016-05-30] MEDS: TAMSULOSIN HCL 0.4 MG CAP PO SCH (20:40)
[2016-05-30] MEDS: MIRTAZAPINE 15 MG TAB PO SCH (20:40)
[2016-05-31] VITALS (8 sets, daily range): BP systolic 117–194; BP diastolic 73–96; PULSE 63–80; RESP 16–20; TEMP 97.5–98.9; O2SAT 94–98
[2016-05-31] MEDS: HEPARIN SODIUM - SQ 10,000 UNITS/ML VIAL SQ SCH (05:23)
[2016-05-31] MEDS: CARVEDILOL 6.25 MG TAB PO SCH ×2 (09:26→20:36)
[2016-05-31] MEDS: DILTIAZEM-CD 120 MG CAP ER PO SCH (09:26)
[2016-05-31] MEDS: SODIUM CHLORIDE 0.9% FLUSH 5 ML FLUSH IV FLUSH SCH ×2 (09:26→20:38)
[2016-05-31] MEDS: PANTOPRAZOLE SOD 40 MG DELAYED RELEASE TAB PO SCH (09:26)
[2016-05-31] MEDS: RIVAROXABAN 10 MG TAB PO SCH (09:26)
[2016-05-31] MEDS: LEVOFLOXACIN 250 MG TAB PO SCH (11:39)
[2016-05-31] MEDS: MORPHINE SULFATE 4 MG/ML INJ IV PUSH PRN ×2 (11:40→20:37)
--- NOTE | 2016-05-31 13:33 | HHI.PR ---
Subjective Subjective Remarks S/P bilat nephro tube placement 05/26 draining well flank pain stable awake and oriented x 3 right sided weakness from previous stroke feels weak c/o low back pain, chronic no fever Review of Systems Constitutional Constitutional: Fatigue, Weakness (10 Pt ROS. Postive for fatique, weakness. but slow improvement. Pain rt. UQ. Otherwise negative exam) Constitutional Remarks 12 point ROS completed, negative except as noted above Pulmonary Respiratory: Shortness of Breath (low air volumes) Musculoskeletal MS: Weakness (generalized), Swelling Vitals/Results Intake & Output 05/30/16 05/30/16 05/31/16 15:00 23:00 07:00 Intake Total 480 ml 1430 ml 637 ml Output Total 1070 ml 925 ml 375 ml Balance -590 ml 505 ml 262 ml Intake Oral 480 ml 280 ml 240 ml IV Total 1150 ml 397 ml Output Urine Total 400 ml Drainage Total 670 ml 925 ml 375 ml # Bowel Movements 0 Vital Signs Vital Signs Date Time Temp Pulse Resp B/P Pulse Ox O2 Delivery O2 Flow Rate FiO2 05/31/16 12:03 97.9 73 20 182/96 98 05/31/16 09:10 96 Nasal Cannula 2.00 05/31/16 08:03 98.4 80 18 194/91 97 05/31/16 04:00 97.9 75 16 147/90 94 05/31/16 00:00 98.9 68 18 160/77 98 05/30/16 20:09 76 05/30/16 20:05 Nasal Cannula 2.00 05/30/16 20:00 98.6 72 19 161/100 98 05/30/16 16:09 98.1 66 22 130/74 97 CBC/BMP: 05/30/16 0648 05/30/16 0648 Physical Exam General General Appearance: Well Developed, Well Nourished, No Acute Distress, Comfortable, Obese Eyes Eye Exam: Pupils Equal, Pupils Reactive Ears & Nose Ears & Nose Exam: Nasal Mucosa [place] Throat Throat Exam: Oral Mucosa [place] & Moist Neck Neck Exam: Neck Supple, Trachea Midline Pulmonary Resp Exam: Clear Bilaterally, Breath Sounds Equal, No Distress Cardiology CV Exam: Irregular, Arrhythmia Gastrointestinal/Abdomen GI Exam: Soft, Non-Tender, Bowel Sounds Present, Non-Distended Genitourinary Exam: Clear Urine Remarks bilat nephrostomy tubes Musculoskeletal MS Remarks right sided weakness upper and lower Integumentary Skin Exam: Warm, Dry Extremeties Extremities Exam: Pedal Pulses Palpable, Trace Edema Neurologic Neuro Exam: Alert, Awake, Oriented, Speech Clear Psychiatric Psych Exam: Appropriate Responses VTE Prophylaxis VTE Prophylaxis Device: SCDs VTE Remarks Xarelto PUD Prophylasis PUD Prophylaxis: Protonix Assessment/Plan Problem List: (1) Sepsis (2) Pneumonia (3) Renal insufficiency (4) Nephrolithiasis (5) UTI (urinary tract infection) (6) Atrial fibrillation (7) Bradycardia (8) BPH (benign prostatic hyperplasia) (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 -appreciate urology input, will need bilateral nephrostomy tube placement, removal of his bladder stone that is attached to his left stent prior to definitive stone treatment for his staghorn calculi. Plan for bilat nephro placement, can be dc with tubes in place and f/u urology. -For BPH, urology recommends to continue Flomax and desir if difficulty voiding. -went to IR on 05/26, s/p Bilateral nephrostomy tubes placed with ultrasound and fluoroscopic guidance, draining well -per Dr. Vazquez, continue abx and infection control, he will bring pt back in 1 to 2 wks for further urologic intervention. Acute renal injury-creat improved -off IVF -monitor renal function -avoid nephrotoxic agents Sepsis, UTI and PNA -continue abx -BC 05/25 2/2 GPC, sens. noted -repeat blood c/s remained neg -Per ID, he rec IV Abx [vanco] for 5 more days plus Po Levaquin -Has PICC Afib, bradycardia, with hypotension. Now resolved -Continue Cardizem and Coreg -Telemetry monitoring -Continue Xarelto, heparin d/c HTN -continue home meds -Clonidine PRN AMS, encephalopathy, likely sec. sepsis,-now resolved -ammonia normal Hx CVA with right sided weakness, pt. deconditioned now -PT eval and tx -Needs OOB, d/w AMY Orozco for DVT prophylaxis PT eval and tx-OOB OOB, IS CM for dc planning, accepted at [facility] following, no beds yet. D/W RN D/W Dr. Harrison D/W pt. This patient was seen by myself and Dr. Harrison, this note is written on his behalf Problem Qualifiers (1) Sepsis: Qualified Code: A41.9 - Sepsis, due to unspecified organism (2) Pneumonia: Qualified Code: J18.1 - Pneumonia of left lower lobe due to infectious organism (3) UTI (urinary tract infection): Qualified Code: N39.0 - Urinary tract infection with hematuria, site unspecified (4) Atrial fibrillation: Qualified Code: I48.2 - Chronic atrial fibrillation (5) BPH (benign prostatic hyperplasia): Fanny Napoles May 31, 2016 13:33
[2016-05-31] MEDS: cloNIDine HCL 0.1 MG TAB PO PRN (15:58)
[2016-05-31] MEDS: TAMSULOSIN HCL 0.4 MG CAP PO SCH (20:36)
[2016-05-31] MEDS: MIRTAZAPINE 15 MG TAB PO SCH (20:36)
[2016-06-01] VITALS (8 sets, daily range): BP systolic 144–162; BP diastolic 60–82; PULSE 56–72; RESP 17–20; TEMP 97.4–98.7; O2SAT 94–98
[2016-06-01] MEDS: PANTOPRAZOLE SOD 40 MG DELAYED RELEASE TAB PO SCH (10:11)
[2016-06-01] MEDS: DILTIAZEM-CD 120 MG CAP ER PO SCH (10:11)
[2016-06-01] MEDS: CARVEDILOL 6.25 MG TAB PO SCH ×2 (10:11→21:05)
[2016-06-01] MEDS: LEVOFLOXACIN 250 MG TAB PO SCH (10:11)
[2016-06-01] MEDS: RIVAROXABAN 10 MG TAB PO SCH (10:11)
[2016-06-01] MEDS: MORPHINE SULFATE 4 MG/ML INJ IV PUSH PRN (10:12)
[2016-06-01] MEDS: SODIUM CHLORIDE 0.9% FLUSH 5 ML FLUSH IV FLUSH SCH ×2 (10:17→21:05)
--- NOTE | 2016-06-01 13:38 | HHI.PR ---
Subjective Subjective Remarks S/P bilat nephro tube placement 05/26 draining well flank pain stable awake and oriented x 3 right sided weakness from previous stroke no fever eating well Review of Systems Constitutional Constitutional: Fatigue, Weakness (10 Pt ROS. Postive for fatique, weakness. but slow improvement. Pain rt. UQ. Otherwise negative exam) Constitutional Remarks 12 point ROS completed, negative except as noted above Pulmonary Respiratory: Shortness of Breath (low air volumes) Musculoskeletal MS: Weakness (generalized), Swelling Vitals/Results Intake & Output 05/31/16 05/31/16 06/01/16 15:00 23:00 07:00 Intake Total 240 ml 360 ml 240 ml Output Total 1350 ml Balance 240 ml -990 ml 240 ml Intake Oral 240 ml 360 ml 240 ml Drainage Total 1350 ml # Voids 1 # Bowel Movements 1 Vital Signs Vital Signs Date Time Temp Pulse Resp B/P Pulse Ox O2 Delivery O2 Flow Rate FiO2 06/01/16 13:14 56 06/01/16 12:13 98.7 68 19 158/74 96 06/01/16 08:33 97.9 68 20 157/74 97 06/01/16 08:20 97 Nasal Cannula 2.00 06/01/16 08:00 Nasal Cannula 2.00 06/01/16 04:00 97.4 60 18 149/70 98 06/01/16 00:29 97.7 72 18 148/60 94 05/31/16 20:00 97.5 64 18 117/73 96 05/31/16 20:00 63 05/31/16 20:00 Nasal Cannula 2.00 05/31/16 16:13 97.5 65 18 159/75 97 CBC/BMP: 05/30/16 0648 05/30/16 0648 Physical Exam General General Appearance: Well Developed, Well Nourished, No Acute Distress, Comfortable, Obese Eyes Eye Exam: Pupils Equal, Pupils Reactive Ears & Nose Ears & Nose Exam: Nasal Mucosa [place] Throat Throat Exam: Oral Mucosa [place] & Moist Neck Neck Exam: Neck Supple, Trachea Midline Pulmonary Resp Exam: Clear Bilaterally, Breath Sounds Equal, No Distress Cardiology CV Exam: Irregular, Arrhythmia Gastrointestinal/Abdomen GI Exam: Soft, Non-Tender, Bowel Sounds Present, Non-Distended Genitourinary Exam: Clear Urine Remarks bilat nephrostomy tubes Musculoskeletal MS Remarks right sided weakness upper and lower Integumentary Skin Exam: Warm, Dry Extremeties Extremities Exam: Pedal Pulses Palpable, Trace Edema Neurologic Neuro Exam: Alert, Awake, Oriented, Speech Clear Psychiatric Psych Exam: Appropriate Responses VTE Prophylaxis VTE Prophylaxis Device: SCDs VTE Remarks Xarelto PUD Prophylasis PUD Prophylaxis: Protonix Assessment/Plan Problem List: (1) Sepsis (2) Pneumonia (3) Renal insufficiency (4) Nephrolithiasis (5) UTI (urinary tract infection) (6) Atrial fibrillation (7) Bradycardia (8) BPH (benign prostatic hyperplasia) (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 -appreciate urology input, will need bilateral nephrostomy tube placement, removal of his bladder stone that is attached to his left stent prior to definitive stone treatment for his staghorn calculi. Plan for bilat nephro placement, can be dc with tubes in place and f/u urology. -For BPH, urology recommends to continue Flomax and desir if difficulty voiding. -went to IR on 05/26, s/p Bilateral nephrostomy tubes placed with ultrasound and fluoroscopic guidance, draining well -per Dr. Vazquez, continue abx and infection control, he will bring pt back in 1 to 2 wks for further urologic intervention. Acute renal injury-creat improved -off IVF -monitor renal function -avoid nephrotoxic agents Sepsis, UTI and PNA -continue abx -BC 05/25 2/2 GPC, sens. noted -repeat blood c/s remained neg -Per ID, he rec IV Abx [vanco] for 5 more days plus Po Levaquin -Has PICC Afib, bradycardia, with hypotension. Now resolved -Continue Cardizem and Coreg -Telemetry monitoring -Continue Xarelto, heparin d/c HTN -continue home meds -Clonidine PRN AMS, encephalopathy, likely sec. sepsis,-now resolved -ammonia normal Hx CVA with right sided weakness, pt. deconditioned now -PT eval and tx -Needs OOB, d/w AMY Orozco for DVT prophylaxis PT eval and tx-OOB OOB, IS CM for dc planning, accepted at [facility] following, no beds yet. D/W RN D/W Dr. Harrison D/W pt. This patient was seen by myself and Dr. Harrison, this note is written on his behalf Problem Qualifiers (1) Sepsis: Qualified Code: A41.9 - Sepsis, due to unspecified organism (2) Pneumonia: Qualified Code: J18.1 - Pneumonia of left lower lobe due to infectious organism (3) UTI (urinary tract infection): Qualified Code: N39.0 - Urinary tract infection with hematuria, site unspecified (4) Atrial fibrillation: Qualified Code: I48.2 - Chronic atrial fibrillation (5) BPH (benign prostatic hyperplasia): Fanny Napoles Jun 01, 2016 13:38 Fanny Napoles Jun 01, 2016 13:38
[2016-06-01] MEDS: MIRTAZAPINE 15 MG TAB PO SCH (21:05)
[2016-06-01] MEDS: TAMSULOSIN HCL 0.4 MG CAP PO SCH (21:05)
[2016-06-02] VITALS (9 sets, daily range): BP systolic 142–174; BP diastolic 72–93; PULSE 54–77; RESP 17–24; TEMP 97.7–98.6; O2SAT 94–99
[2016-06-02] MEDS: cloNIDine HCL 0.1 MG TAB PO PRN ×2 (02:17→12:14)
[2016-06-02] MEDS: SODIUM CHLORIDE 0.9% FLUSH 5 ML FLUSH IV FLUSH SCH ×2 (09:00→20:27)
[2016-06-02] MEDS: CARVEDILOL 6.25 MG TAB PO SCH ×2 (09:25→20:27)
[2016-06-02] MEDS: RIVAROXABAN 10 MG TAB PO SCH (09:25)
[2016-06-02] MEDS: LEVOFLOXACIN 250 MG TAB PO SCH (09:25)
[2016-06-02] MEDS: PANTOPRAZOLE SOD 40 MG DELAYED RELEASE TAB PO SCH (09:25)
[2016-06-02] MEDS: DILTIAZEM-CD 120 MG CAP ER PO SCH (09:25)
--- NOTE | 2016-06-02 11:33 | HHI.PR ---
Subjective Subjective Remarks S/P bilat nephro tube placement 05/26 draining well awake, oriented x 3 no pain no cp no sob afebrile BP better Review of Systems Constitutional Constitutional: Fatigue, Weakness (10 Pt ROS. Postive for fatique, weakness. but slow improvement. Pain rt. UQ. Otherwise negative exam) Constitutional Remarks 12 point ROS completed, negative except as noted above Pulmonary Respiratory: Shortness of Breath (low air volumes) Musculoskeletal MS: Weakness (generalized), Swelling Vitals/Results Intake & Output 06/01/16 06/01/16 06/02/16 15:00 23:00 07:00 Intake Total 360 ml 120 ml 120 ml Output Total 750 ml 225 ml 425 ml Balance -390 ml -105 ml -305 ml Intake Oral 360 ml 120 ml 120 ml Output Urine Total 750 ml Drainage Total 225 ml 425 ml # Bowel Movements 0 1 Vital Signs Vital Signs Date Time Temp Pulse Resp B/P Pulse Ox O2 Delivery O2 Flow Rate FiO2 06/02/16 09:19 94 Nasal Cannula 2.00 06/02/16 08:02 98.2 75 24 156/93 97 06/02/16 08:00 Nasal Cannula 2.00 06/02/16 04:00 98.0 67 17 145/72 96 06/02/16 00:00 97.7 71 18 174/81 94 06/01/16 20:00 98.1 68 17 162/82 97 06/01/16 20:00 64 06/01/16 20:00 Nasal Cannula 2.00 06/01/16 16:14 98.2 62 20 144/82 96 06/01/16 13:14 56 06/01/16 12:13 98.7 68 19 158/74 96 CBC/BMP: 05/30/16 0648 05/30/16 0648 Physical Exam General General Appearance: Well Developed, Well Nourished, No Acute Distress, Comfortable, Obese Eyes Eye Exam: Pupils Equal, Pupils Reactive Ears & Nose Ears & Nose Exam: Nasal Mucosa [place] Throat Throat Exam: Oral Mucosa [place] & Moist Neck Neck Exam: Neck Supple, Trachea Midline Pulmonary Resp Exam: Clear Bilaterally, Breath Sounds Equal, No Distress Cardiology CV Exam: Irregular, Arrhythmia Gastrointestinal/Abdomen GI Exam: Soft, Non-Tender, Bowel Sounds Present, Non-Distended Genitourinary Exam: Clear Urine Remarks bilat nephrostomy tubes Musculoskeletal MS Remarks right sided weakness upper and lower Integumentary Skin Exam: Warm, Dry Extremeties Extremities Exam: Pedal Pulses Palpable, Trace Edema Neurologic Neuro Exam: Alert, Awake, Oriented, Speech Clear Psychiatric Psych Exam: Appropriate Responses VTE Prophylaxis VTE Prophylaxis Device: SCDs VTE Remarks Xarelto PUD Prophylasis PUD Prophylaxis: Protonix Assessment/Plan Problem List: (1) Sepsis (2) Pneumonia (3) Renal insufficiency (4) Nephrolithiasis (5) UTI (urinary tract infection) (6) Atrial fibrillation (7) Bradycardia (8) BPH (benign prostatic hyperplasia) (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 -appreciate urology input, will need bilateral nephrostomy tube placement, removal of his bladder stone that is attached to his left stent prior to definitive stone treatment for his staghorn calculi. Plan for bilat nephro placement, can be dc with tubes in place and f/u urology. -For BPH, urology recommends to continue Flomax and desir if difficulty voiding. -went to IR on 05/26, s/p Bilateral nephrostomy tubes placed with ultrasound and fluoroscopic guidance, draining well -per Dr. Vazquez, continue abx and infection control, he will bring pt back in 1 to 2 wks for further urologic intervention. Acute renal injury-creat improved -off IVF -monitor renal function -avoid nephrotoxic agents Sepsis, UTI and PNA -continue abx -BC 05/25 2/2 GPC, sens. noted -repeat blood c/s remained neg -Per ID, he rec IV Abx [vanco] for 5 more days plus Po Levaquin-Completed Vanco -Has PICC Afib, bradycardia, with hypotension. Now resolved -Continue Cardizem and Coreg -Telemetry monitoring -Continue Xarelto, heparin d/c HTN -continue home meds -Clonidine PRN AMS, encephalopathy, likely sec. sepsis,-now resolved -ammonia normal Hx CVA with right sided weakness, pt. deconditioned now -PT eval and tx -OOB today Xarelto for DVT prophylaxis PT eval and tx-OOB OOB, IS CM for dc planning, [facility] will have bed tomorrow to [facility] in am D/W RN D/W Dr. Harrison D/W pt. This patient was seen by myself and Dr. Harrison, this note is written on his behalf Problem Qualifiers (1) Sepsis: Qualified Code: A41.9 - Sepsis, due to unspecified organism (2) Pneumonia: Qualified Code: J18.1 - Pneumonia of left lower lobe due to infectious organism (3) UTI (urinary tract infection): Qualified Code: N39.0 - Urinary tract infection with hematuria, site unspecified (4) Atrial fibrillation: Qualified Code: I48.2 - Chronic atrial fibrillation (5) BPH (benign prostatic hyperplasia): Fanny Napoles Jun 02, 2016 11:33
[2016-06-02] MEDS: MORPHINE SULFATE 4 MG/ML INJ IV PUSH PRN (13:30)
[2016-06-02] MEDS ORDERED: XARE10TA PO (14:50)
--- NOTE | 2016-06-02 14:51 | HHI.DCPOC ---
Discharge Care Plan Diagnosis: (1) Nephrolithiasis (2) UTI (urinary tract infection) (3) Atrial fibrillation (4) Renal insufficiency (5) Sepsis (6) Pneumonia (7) Bradycardia (8) BPH (benign prostatic hyperplasia) (9) History of CVA with residual deficit Your Health Problems Are: Anxiety Difficulty with ADL Goals to Promote Your Health * To prevent worsening of your condition and complications * To maintain your health at the optimal level Directions to Meet Your Goals Take your medications as prescribed Follow your dietary instruction Follow activity as directed Keep your appointments as scheduled Take your immunizations and boosters as scheduled If your symptoms worsen call your PCP, if no PCP go to Urgent Care Center or Emergency Room Smoking is Dangerous to Your Health. Avoid second hand smoke Call the 24-hour hour crisis hotline for domestic abuse at Fanny Napoles [facility] Jun 02, 2016 14:51
--- NOTE | 2016-06-02 14:53 | HHI.DS ---
Discharge Summary Admission Date May 25, 2016 at 05:24 Discharge Date: Jun 09, 2016 Admitting Diagnosis sepsis, pneumonia, nephrolithiasis, renal insufficiency (1) Nephrolithiasis (2) UTI (urinary tract infection) (3) Atrial fibrillation (4) Renal insufficiency (5) Sepsis (6) Pneumonia (7) Bradycardia (8) BPH (benign prostatic hyperplasia) (9) History of CVA with residual deficit Procedures 05/26, s/p Bilateral nephrostomy tubes placed with ultrasound and fluoroscopic guidance CBC/BMP: 05/30/16 0648 05/30/16 0648 Imaging Last Impressions Chest X-Ray 05/30/16 1755 Signed Impressions: Service Date/Time: Monday, May 30, 2016 18:06 - CONCLUSION: Improvement in the aeration of the lungs. Gustavo Quigley MD Nephrostomy 05/26/16 0000 Signed Impressions: Service Date/Time: Thursday, May 26, 2016 15:50 - CONCLUSION: 1. There are stones evident filling the entire collecting system of the right kidney. The nephrostomy tube had to be coiled in a dilated upper pole calyx as the renal pelvis is completely stone filled. 2. There is stone encasement of the patient' s ureteral stent. Florentin Castillo MD Abdomen/Pelvis CT 05/25/16 0427 Signed Impressions: Service Date/Time: Wednesday, May 25, 2016 04:31 - CONCLUSION: 1. Bilateral staghorn type renal calculi and left double J stent in place with concretion calcifications both proximal and distal. 2. There is also an obstructing stone in the proximal right ureter measuring 5 mm and causing mild right hydronephrosis. 3. Bilateral fat containing inguinal hernias, small right pleural effusion, probable pericardial effusion, and moderate enlargement of the prostate. Grayson Alcala MD Hospital Course This is a pleasant 80-year-old white male who was brought to the emergency room via ambulance for an evaluation of his generalized weakness, abdominal pain and cough. The patient stated that he had been sick for approximately one day with some abdominal pain. He stated that the pain waxes and wanes. He had a decreased appetite and had consumed no food within the last 24-hours, but has been able to keep down liquids. He denied any chest pain, no shortness of breath. Denies any weight gain or weight loss. He denies any headache. The patient has had some sputum production which he noted to be thick-green. His chief complaint has been his epigastric abdominal discomfort to the point that he thought he might have an ulcer. The patient has had a fever which has been recorded as high as 103. He has had some tachycardic rhythm as high as 110, but his normal rhythm is atrial fibrillation with a rate in the 90s. The patient states that he got up to go to the bathroom approximately 2:30 this morning and could not get out of the bed. He states that he did not fall and did not pass out but knew that he was sick enough he needed to come be observed. The patient has no history of abdominal pain or surgery. 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 He recently has moved to this area from [place]. Pt. admitted and evaluated and found with UTI/Pyelonephritis possible early sepsis, CT scan showed R Ureteral stone w mild Hydronephrosis and bilat staghorn stones Possible pulmonary infiltrates. He was noted in [place]. Hx of prior ureter stent in [place] 2 years ago. 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 admitted, put on IV fluids, antibiotics were started. Cultures were obtained. Patient admitted to the intensive care unit as he was hypotensive. Urologist was consulted for evaluation nephrolithiasis, bilat staghorn calculus , with indwelling left calcified ureteral stent. -appreciate urology input, will need bilateral nephrostomy tube placement, removal of his bladder stone that is attached to his left stent prior to definitive stone treatment for his staghorn calculi. Planned for bilat nephro placement, can be dc with tubes in place and f/u urology. -For BPH, urology recommended to continue Flomax and desir if difficulty voiding. -went to IR on 05/26, s/p Bilateral nephrostomy tubes placed with ultrasound and fluoroscopic guidance, draining well. Tolerated procedure well. -per Dr. Vazquez, continue abx and infection control, he will bring pt back in 1 to 2 wks for further urologic intervention. Acute renal injury-creat improved. Was given IV fluids initially. -monitored renal function -avoided nephrotoxic agents Sepsis, UTI and PNA -Infectious disease was consulted -Continue with antibiotics. -BC 05/25 2/2 GPC, sens. noted -repeat blood c/s remained neg -Per ID, he rec IV Abx [vanco] for 5 more days plus Po Levaquin-Completed Vanco 06/03 -Had PICC -Patient tolerated antibiotics well, cultures were followed. WBC came down, remained afebrile. Afib, bradycardia, with hypotension. Initially patient bradycardic, Cardizem was adjusted. Heart rate improved, medications were restarted. -Continue Cardizem and Coreg -Telemetry monitoring -Xarelto initially held, patient was put on heparin subcutaneous -After procedure, heparin was discontinued and patient was started on Xarelto - did have a pulse, clonidine was discontinued as it was thought to be contributing. HTN-patient had initial episode of hypotension then hypertension. Medications require adjustment. -continue home meds -Clonidine PRN AMS, encephalopathy, likely sec. sepsis,-now resolved -ammonia normal Hx CVA with right sided weakness, pt. deconditioned now -PT eval and tx -OOB today Xarelto for DVT prophylaxis PT eval and tx-OOB OOB, IS CM for dc planning, CIR evaluated. Patient's condition improved, renal function was back to baseline. No fever. Patient completed IV antibiotics. Patient was cleared for discharge by consultants. Patient was to come back to the hospital in 2 weeks to have further urological interventions. [facility] accepted patient. Patient was discharge in stable condition Pt Condition on Discharge: Stable Discharge Disposition: Discharge to SNF Discharge Instructions DIET: Follow Instructions for: Heart Healthy Diet Activities you can perform: Weight Bearing as Nick Follow up Referrals: PCP Follow-up Urology - 2 Weeks with Vineet Vazquez MD New Medications: Carvedilol (Coreg) 12.5 Mg Tab 12.5 MG PO BID AFIB #60 Ref 1 TAB Diltiazem CD 24 HR (Cardizem CD 24 HR) 120 Mg Caper 120 MG PO DAILY AFIB #30 Ref 1 CAP Rivaroxaban (Xarelto) 10 Mg Tab 10 MG PO DAILY AFIB #30 Ref 0 TAB Rivaroxaban (Xarelto) 20 Mg Tab 20 MG PO DAILY AFIB #30 Ref 1 TAB Continued Medications: Mirtazapine (Mirtazapine) 15 Mg Tab 15 MG PO HS Depression Control #30 Ref 0 TAB Tamsulosin (Tamsulosin) 0.4 Mg Cap 0.4 MG PO HS Manage Prostate Problems #30 Ref 0 CAP Discontinued Medications: Carvedilol (Carvedilol) 6.25 Mg Tab 6.25 MG PO BID #60 Ref 0 TAB Pantoprazole (Pantoprazole) 20 Mg Tab 20 MG PO DAILY Reflux #30 Ref 0 TAB Rivaroxaban (Xarelto) 10 Mg Tab Unknown Dose PO DAILY Blood Clot Prevention Ref 0 TAB Tramadol (Tramadol) 50 Mg Tab 50 MG PO Q4H PRN PAIN Ref 0 TAB Fanny Napoles Jun 02, 2016 14:53
[2016-06-02] MEDS ORDERED: ENALAPRILAT 1.25 MG/ML VIAL IV PUSH PRN (16:00)
[2016-06-02] MEDS: MIRTAZAPINE 15 MG TAB PO SCH (20:27)
[2016-06-02] MEDS: ACETAMINOPHEN 325 MG TAB PO PRN (20:27)
[2016-06-02] MEDS: TAMSULOSIN HCL 0.4 MG CAP PO SCH (20:27)
[2016-06-03] VITALS (10 sets, daily range): BP systolic 129–179; BP diastolic 65–89; PULSE 58–75; RESP 16–22; TEMP 97.3–98.3; O2SAT 96–99
[2016-06-03] MEDS: CARVEDILOL 6.25 MG TAB PO SCH ×2 (08:58→21:02)
[2016-06-03] MEDS: LEVOFLOXACIN 250 MG TAB PO SCH (08:58)
[2016-06-03] MEDS: DILTIAZEM-CD 120 MG CAP ER PO SCH (08:59)
[2016-06-03] MEDS: PANTOPRAZOLE SOD 40 MG DELAYED RELEASE TAB PO SCH (08:59)
[2016-06-03] MEDS: RIVAROXABAN 10 MG TAB PO SCH (08:59)
[2016-06-03] MEDS: SODIUM CHLORIDE 0.9% FLUSH 5 ML FLUSH IV FLUSH SCH ×2 (08:59→21:03)
--- NOTE | 2016-06-03 14:35 | HHI.PR ---
Subjective History of Present Illness Subjective Remarks S/P bilat nephro tube placement 05/26 flank pain stable, but still persists, Rt. UQ prn awake, oriented x 3, fatigue, tiring today no n/v eating okay, slow improvement BP improved. Cough SOB noted at rest Hospital Day: 9 Subjective Remarks I'm feeling tired today and short of breath. Review of Systems Constitutional Constitutional: Fatigue, Weakness (10 Pt ROS. Postive for fatique, weakness. but slow improvement. Pain rt. UQ. Otherwise negative exam) Pulmonary Respiratory: Shortness of Breath (low air volumes, increased at rest) GI/Abdomen GI/Abdomen Remarks RT UQ pain continues, with flank pain Genitourinary Remarks Bilateral Nephro tubes both draining clear yellow urine Musculoskeletal MS: Weakness (generalized), Swelling MS Remarks Trace edema ángel LE Vitals/Results Intake & Output 06/02/16 06/02/16 06/03/16 15:00 23:00 07:00 Intake Total 480 ml 240 ml Output Total 825 ml 250 ml Balance -345 ml 240 ml -250 ml Intake Oral 480 ml 240 ml Output Urine Total 825 ml Drainage Total 250 ml # Bowel Movements 1 Vital Signs Vital Signs Date Time Temp Pulse Resp B/P Pulse Ox O2 Delivery O2 Flow Rate FiO2 06/03/16 12:00 97.9 75 20 170/89 99 06/03/16 10:36 98 Nasal Cannula 2.00 06/03/16 09:48 65 06/03/16 08:00 98.3 75 20 157/80 98 06/03/16 04:00 98.0 69 18 146/65 96 06/03/16 00:00 97.3 58 16 129/77 97 06/02/16 21:27 20 06/02/16 20:15 98.1 57 18 142/73 97 06/02/16 20:04 54 06/02/16 20:00 Nasal Cannula 2.00 06/02/16 16:00 98.4 77 20 142/79 99 CBC/BMP: 05/30/16 0648 05/30/16 0648 Lab Results Active Medications Imaging Remarks Last Impressions Chest X-Ray 05/30/16 8501 Signed Impressions: Service Date/Time: Monday, May 30, 2016 18:06 - CONCLUSION: Improvement in the aeration of the lungs. Gustavo Quigley MD Nephrostomy 05/26/16 0000 Signed Impressions: Service Date/Time: Thursday, May 26, 2016 15:50 - CONCLUSION: 1. There are stones evident filling the entire collecting system of the right kidney. The nephrostomy tube had to be coiled in a dilated upper pole calyx as the renal pelvis is completely stone filled. 2. There is stone encasement of the patient' s ureteral stent. Florentin Castillo MD Abdomen/Pelvis CT 05/25/16 0427 Signed Impressions: Service Date/Time: Wednesday, May 25, 2016 04:31 - CONCLUSION: 1. Bilateral staghorn type renal calculi and left double J stent in place with concretion calcifications both proximal and distal. 2. There is also an obstructing stone in the proximal right ureter measuring 5 mm and causing mild right hydronephrosis. 3. Bilateral fat containing inguinal hernias, small right pleural effusion, probable pericardial effusion, and moderate enlargement of the prostate. Grayson Alcala MD Cardiology Studies Remarks Consult today Current Medications Active Medications Acetaminophen/ Hydrocodone Bitart ([place] 7.5-325 Mg) 1 tab Q4H PRN PO; Start 06/02/16 at 15:45 Enalaprilat (Vasotec Inj) 1.25 mg Q6H PRN IV PUSH; Start 06/02/16 at 16:00 Physical Exam General General Appearance: Well Developed, Well Nourished, No Acute Distress, Comfortable, Obese Appearance Remarks Rt. UQ discomfort. Off and on. Eyes Eye Exam: Pupils Equal, Pupils Reactive Ears & Nose Ears & Nose Exam: Nasal Mucosa Horatio Throat Throat Exam: Oral Mucosa Horatio & Moist Neck Neck Exam: Neck Supple, Trachea Midline Pulmonary Resp Exam: Breath Sounds Equal, No Distress, Diminished Breath Sounds, Poor Inspiratory Effort Resp Remarks Shortness of breath at rest Cardiology CV Exam: Irregular, Arrhythmia Gastrointestinal/Abdomen GI Exam: Soft, Non-Tender, Bowel Sounds Present, Non-Distended GI Remarks Rt. nephrostomy tube Genitourinary Exam: Clear Urine Integumentary Skin Exam: Warm, Dry Extremeties Extremities Exam: Pedal Pulses Palpable, Trace Edema Extremeties Remarks 1+ right leg edema. 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 We'll leave drains in for 1-2 weeks and then repeat eval per urology. -appreciate urology input, will need bilateral nephrostomy tube placement done -For BPH, urology recommends to continue Flomax and desir if difficulty voiding. -went to IR on 05/26, s/p Bilateral nephrostomy tubes placed with ultrasound and fluoroscopic guidance, draining well -per Dr. Vazquez, continue abx and infection control, he will bring pt back in 1 to 2 wks for further urologic intervention. Acute renal injury-creat improved -off IVF -monitor renal function -avoid nephrotoxic agents Sepsis, UTI and PNA -continue abx -BC 05/25 2/2 GPC, sens. noted -repeat blood c/s remained neg -Per ID, he rec IV Abx [vanco] for 5 more days plus Po Levaquin-Completed Vanco -Has PICC Afib, bradycardia, with hypotension. Now resolved -Continue Cardizem and Coreg -Telemetry monitoring -Continue Xarelto, heparin d/c Shortness of breath, acute onset. Discussed with Dr. Harrison. Chest x-ray ordered. Cardiology to see/consult on 06-03 HTN Patient has home meds continued -Clonidine PRN AMS, encephalopathy, likely sec. sepsis,-now resolved -ammonia normal Hx CVA with right sided weakness, pt. deconditioned now -PT eval and tx -OOB today Xarelto for DVT prophylaxis PT eval and tx-OOB OOB, IS CM for dc planning, CIR will have bed tomorrow Hold until cardiology sees and shortness of breath is under control. Dysrhythmia noted . Called to Dr. Harrison. D/W RN D/W Dr. Harrison D/W pt. This patient was seen by myself and Dr. Harrison, this note is written on his behalf Problem Qualifiers (1) Sepsis: Qualified Code: A41.9 - Sepsis, due to unspecified organism (2) Pneumonia: Qualified Code: J18.1 - Pneumonia of left lower lobe due to infectious organism (3) UTI (urinary tract infection): Qualified Code: N39.0 - Urinary tract infection with hematuria, site unspecified (4) Atrial fibrillation: Qualified Code: I48.2 - Chronic atrial fibrillation (5) BPH (benign prostatic hyperplasia): Mackenzie Solis Jun 03, 2016 14:35
--- NOTE | 2016-06-03 14:47 | RADRPT ---
EXAM DATE/TIME: 06/03/2016 14:12 [place] COMPARISON: CHEST SINGLE AP, May 30, 2016, 18:06. INDICATIONS : Cardiomyopathy. Pt. has some shortness of breath. MEDICAL HISTORY : None. SURGICAL HISTORY : Bilateral kidney drains. ENCOUNTER: Subsequent ACUITY: 2 weeks PAIN SCORE: 0/10 LOCATION: Bilateral chest FINDINGS: There continues to be some mild improvement in aeration of lung newell. There continues to be some mi ld interstitial changes suggestive of some resolving edema. The heart size is diffusely enlarged. No significant pleural effusions are seen. No evidence of pneumothorax. CONCLUSION: Improving pulmonary edema. Antwan Jay MD on June 03, 2016 at 14:43 Board Certified Radiologist. This report was verified electronically.
[2016-06-03] MEDS: ACETAMINOPHEN 325 MG TAB PO PRN (14:48)
--- NOTE | 2016-06-03 17:07 | MB ---
cc: MACARIO LOPEZ WING Y. MD [facility], [place] (fax copies to Dr. Hinton and Dr. Price) DATE OF CONSULTATION 06/03/[address] Jade Price PRIMARY SPORTS COMMENTATOR Dr. Wing Hinton REASON FOR CONSULTATION Nonsustained VT HISTORY OF PRESENT ILLNESS Sebastian Damon is a pleasant 80-year-old male who originally presented to [facility] emergency room on May 25, 2016 due to generalized weakness and fever. At that time, he was found to have bilateral staghorn calculus. Afterwards, he underwent bilateral nephrostomy tube placement. Since then, he has been doing better and he was getting ready to go towards rehabilitation when he was found to have nonsustained ventricular tachycardia on his telemetry. He states that when the event happened, he had no chest pain, shortness of breath, palpitations or lightheadedness. He states before this event he would be up and walking with his cane and gets no chest pain or shortness of breath. He is unsure of the last time he underwent stress testing, cardiac catheterization or echocardiogram as he previously moved here from [place]. PAST MEDICAL HISTORY 1. History of CVA. 2. Kidney stones. 3. Chronic atrial fibrillation. 4. Gastroesophageal reflux disease 5. Benign prostatic hypertrophy PAST SURGICAL HISTORY Placement of bilateral nephrostomy tubes (May 26, 2016) ALLERGIES NO KNOWN DRUG ALLERGIES. MEDICATIONS Home, 1. Flomax 0.4 mg every night 2. Xarelto listed as 10mg (not a usual dose for Afib) 3. Mirtazapine 15 mg every night 4. Coreg 6.25 mg b.i.d. 5. Tramadol 50 mg every 4 hours as needed for pain. 6. Protonix 20 mg daily. SOCIAL HISTORY The patient is . He currently lives with his in a [facility]. He denies any tobacco, alcohol or illicit drug abuse. FAMILY HISTORY Denies premature coronary artery disease or sudden cardiac within the family. PHYSICAL EXAMINATION VITAL SIGNS: Temperature 97.9, heart rate 75, blood pressure 170/89, respirations 20, pulse ox 99% on 2 liters. GENERAL: The patient appears well. No acute distress, alert, awake and oriented x3. HEENT: Extraocular muscles intact. Mucous membranes moist. NECK: Supple. No JVD at 45 degrees. No carotid bruits heard bilaterally. Carotid upstroke is brisk in nature. HEART: Regular rate and rhythm. Positive first and second heart sounds. PMI is difficult to determine. LUNGS: Decreased breath sounds at bilateral bases with no overt wheezes, rales or rhonchi. ABDOMEN: Soft, nontender, nondistended, no organomegaly noted. EXTREMITIES: No clubbing, cyanosis or edema. Femoral and distal pulses intact bilaterally. NEUROLOGIC: The patient has chronic right-sided weakness. SKIN: Warm, dry and intact. OSTEOPATHIC: No kyphoscoliosis, lordosis or paraspinal tender points. LABORATORY FINDINGS Hemoglobin 11.7, hematocrit 35.1, platelets 148. Potassium 4.2, BUN 24, creatinine 1.19. CARDIOLOGY STUDIES Electrocardiogram (June 03, 2016 at 11:20) atrial fibrillation with controlled ventricular response, mild interventricular conduction delay, cannot rule out lateral infarct. IMPRESSION 1. Asymptomatic nonsustained VT versus atrial fibrillation with a rapid ventricular response with a bundle branch block due to a decrease in the R to R interval. 2. Chronic atrial fibrillation on Xarelto anticoagulation at home. 3. Hypertension 4. Acute kidney injury due to bilateral staghorn calculi 5. Bilateral staghorn calculi status post nephrostomy tube placement. 6. History of CVA. 7. Sepsis due to bilateral staghorn renal calculi. 8. Lactic acidosis due to sepsis. RECOMMENDATIONS 1. Sebastian appears to have an episode of wide complex tachycardia and it does appear that the R to R interval does change somewhat leading me to believe that this is atrial fibrillation with a decreased R to R interval leading to a bundle branch block pattern. Either way he was asymptomatic during this. 2. We will check his electrolytes including potassium, magnesium and phosphate and should replace as such. 3. He does appear somewhat short of breath with conversation and this is most likely due to some mild heart failure. In turn, this is most likely due to him receiving multiple liters of normal saline due to his sepsis appropriately. Now that he has nephrostomy tubes places, he will most likely equilibrate appropriately if he has a normal ejection fraction. 4. He should continue on Xarelto for his chronic atrial fibrillation. He was placed on 10 mg which it does state that this is his dose in the reconciled medications, but this needs to be checked as this is not a typical dose for atrial fibrillation. I spoke to his , who states that he is on 20mg daily 5. We will check a 2-D echo to look at his overall cardiac function, valvulopathies and possible structural heart disease. 6. Depending on the results of further testing, consideration could be made for outpatient stress testing with his [employer], Dr. Hinton. Thank you for allowing me to see Sebastian Kumar. If any questions, please do not hesitate to call. Macario Lopez DO VGP/SA /4:07 PM /4:43 PM MTDMona
[2016-06-03] MEDS: MIRTAZAPINE 15 MG TAB PO SCH (21:03)
[2016-06-03] MEDS: TAMSULOSIN HCL 0.4 MG CAP PO SCH (21:03)
[2016-06-03 23:12] LABS: AUTOMATED NEUTROPHIL # 7.5 TH/MM3 (1.8-7.7); BASOPHIL % 0.4 % (0.0-2.0); EOSINOPHIL # 0.5 TH/MM3 (0-0.4); EOSINOPHIL % 4.6 % (0.0-4.0); HEMATOCRIT 34.4 % (39.0-51.0); LYMPH % 12.6 % (9.0-44.0); LYMPHOCYTE # 1.2 TH/MM3 (1.0-4.8); MEAN CELL VOLUME 92.6 FL (80.0-100.0); MEAN CORPUSCULAR HEMOGLOBIN 30.2 PG (27.0-34.0); MEAN CORPUSCULAR HGB CONC 32.7 % (32.0-36.0); MONO % 5.7 % (0.0-8.0); NEUT % 76.7 % (16.0-70.0); PLATELET COUNT 155 TH/MM3 (150-450); RED BLOOD COUNT 3.71 MIL/MM3 (4.50-5.90); RED CELL DISTRIBUTION WIDTH 14.6 % (11.6-17.2); WHITE BLOOD COUNT 9.8 TH/MM3 (4.0-11.0)
[2016-06-03 23:20] LABS: HEMO FLAGS AUTO DIFF
[2016-06-03 23:26] LABS: ANION GAP 6 MEQ/L (5-15); BICARBONATE 32.9 MEQ/L (21.0-32.0); BLOOD UREA NITROGEN 14 MG/DL (7-18); CHLORIDE 105 MEQ/L (98-107); GLOMERULAR FILTRATION RATE 67 ML/MIN (>89); MAGNESIUM 1.7 MG/DL (1.5-2.5); POTASSIUM 3.8 MEQ/L (3.5-5.1); SODIUM (NA) 144 MEQ/L (136-145)
[2016-06-03 23:27] LABS: CREATINE KINASE 15 U/L (39-308)
[2016-06-04] VITALS (11 sets, daily range): BP systolic 129–196; BP diastolic 59–93; PULSE 61–74; RESP 18–22; TEMP 97.8–99.3; O2SAT 96–99
[2016-06-04 01:18] LABS: BANDS 15 % (0-6); EOSINOPHILS 2 % (0-4); METAMYELOCYTES 2 % (0-1); MYELOCYTES 1 % (0-0); NEUTROPHIL # MANUAL DIFF 8.3 TH/MM3 (1.8-7.7); PLATELET ESTIMATE SMEAR NORMAL (NORMAL); PLATELET MORPHOLOGY NORMAL (NORMAL); POLYS (SEG NEUTROPHILS) 67 % (16-70); SCAN/DIFF FINAL DIFF MANUAL; WBC DIFF SAMPLE 100
[2016-06-04 01:19] LABS: TOXIC GRANULATION 1+ (NORMAL)
[2016-06-04] MEDS: CARVEDILOL 6.25 MG TAB PO SCH (08:49)
[2016-06-04] MEDS: RIVAROXABAN 20 MG TAB PO SCH (08:49)
[2016-06-04] MEDS: SODIUM CHLORIDE 0.9% FLUSH 5 ML FLUSH IV FLUSH SCH ×2 (08:49→21:02)
[2016-06-04] MEDS: DILTIAZEM-CD 120 MG CAP ER PO SCH (08:49)
[2016-06-04] MEDS: PANTOPRAZOLE SOD 40 MG DELAYED RELEASE TAB PO SCH (08:49)
--- NOTE | 2016-06-04 10:53 | PD.CARD.PN ---
Subjective Subjective Remarks No chest pain, no shortness of breath, no palpitations Feels overall weak, no fever/chills Objective Medications Current Medications Medications (Trade) Dose Ordered Sig/Axel Route Start Time Stop Time Status Last Admin (NS Flush) 2 ml UNSCH PRN IV FLUSH 05/25/16 05:30 (NS Flush) 2 ml BID IV FLUSH 05/25/16 09:00 06/04/16 08:49 (Tylenol) 650 mg Q4H PRN PO 05/25/16 05:30 06/03/16 14:48 (Zofran Inj) 4 mg Q6H PRN IV 05/25/16 05:30 (Protonix) 40 mg DAILY PO 05/25/16 09:00 06/04/16 08:49 (Coreg) 6.25 mg BID PO 05/25/16 21:00 06/04/16 08:49 (Remeron) 15 mg HS PO 05/25/16 21:00 06/03/16 21:03 (Flomax) 0.4 mg HS PO 05/25/16 21:00 06/03/16 21:03 Miscellaneous Information Patient in critical care unit? Ass... Q361D XX 05/25/16 23:15 (Cardizem Cd) 120 mg DAILY PO 05/31/16 09:00 06/04/16 08:49 (Levaquin) 250 mg DAILY@11 PO 05/31/16 11:00 06/03/16 08:58 (NS Flush) See Protocol DAILY IVF 05/31/16 09:00 06/04/16 08:49 (NS Flush) See Protocol UNSCH PRN IVF 05/30/16 18:00 (Heparin Central Flush) See Protocol DAILY IVF 05/31/16 09:00 06/04/16 08:49 (Heparin Central Flush) See Protocol UNSCH PRN IVF 05/30/16 18:00 (NS Flush) See Protocol UNSCH PRN IVF 05/30/16 18:00 (Vasotec Inj) 1.25 mg Q6H PRN IV PUSH 06/02/16 16:00 ([place] 7.5-325 Mg) 1 tab Q4H PRN PO 06/02/16 15:45 (Xarelto) 20 mg DAILY PO 06/04/16 09:00 06/04/16 08:49 Vital Signs / I&O Vital Signs Date Time Temp Pulse Resp B/P Pulse Ox O2 Delivery O2 Flow Rate FiO2 06/04/16 08:11 98.2 66 20 179/88 97 06/04/16 04:00 97.9 70 22 184/93 97 06/04/16 00:00 97.8 70 22 171/85 97 06/04/16 00:00 Nasal Cannula 3.00 06/03/16 20:00 98.3 70 22 165/75 98 06/03/16 20:00 Nasal Cannula 2.00 06/03/16 19:56 62 06/03/16 18:03 98 Nasal Cannula 2.00 06/03/16 16:00 98.2 73 20 179/83 98 06/03/16 12:00 97.9 75 20 170/89 99 I/O 06/03/16 06/03/16 06/03/16 06/04/16 06/04/16 06/04/16 07:00 15:00 23:00 07:00 15:00 23:00 Intake Total 480 ml 280 ml 120 ml Output Total 250 ml 450 ml 675 ml 420 ml 500 ml Balance -250 ml 30 ml -395 ml -300 ml -500 ml Intake Oral 480 ml 280 ml 120 ml Output Urine Total 450 ml 500 ml 420 ml Drainage Total 250 ml 175 ml 500 ml # Bowel Movements 2 0 0 Physical Exam GENERAL: NAD, AAOx3 SKIN: Warm and dry. HEAD: Atraumatic. Normocephalic. EYES: Pupils equal and round. No scleral icterus. No injection or drainage. ENT: No nasal bleeding or discharge. Mucous membranes pink and moist. NECK: Trachea midline. No JVD. CARDIOVASCULAR: Regular rate and rhythm. /6 holosystolic murmur at the apex RESPIRATORY: No accessory muscle use. Decreased breath sounds bilaterally GASTROINTESTINAL: Abdomen soft, non-tender, nondistended. Hepatic and splenic margins not palpable. MUSCULOSKELETAL: Extremities without clubbing, cyanosis, or edema. No obvious deformities. NEUROLOGICAL: Awake and alert. No obvious cranial nerve deficits. Motor grossly within normal limits. Five out of 5 muscle strength in the arms and legs. Normal speech. PSYCHIATRIC: Appropriate mood and affect; insight and judgment normal. B/L nephrostomy tubes in place and draining Laboratory Laboratory Tests Test 06/03/16 06/04/16 22:50 02:45 Sodium Level 144 MEQ/L Potassium Level 3.8 MEQ/L Chloride Level 105 MEQ/L Carbon Dioxide Level 32.9 MEQ/L Anion Gap 6 MEQ/L Blood Urea Nitrogen 14 MG/DL Creatinine 1.07 MG/DL Estimat Glomerular Filtration 67 ML/MIN Rate Random Glucose 104 MG/DL Calcium Level 8.4 MG/DL Magnesium Level 1.7 MG/DL Total Creatine Kinase 15 U/L Troponin I LESS THAN 0.02 LESS THAN 0.02 NG/ML NG/ML White Blood Count 9.8 TH/MM3 Red Blood Count 3.71 MIL/MM3 Hemoglobin 11.2 GM/DL Hematocrit 34.4 % Mean Corpuscular Volume 92.6 FL Mean Corpuscular Hemoglobin 30.2 PG Mean Corpuscular Hemoglobin 32.7 % Concent Red Cell Distribution Width 14.6 % Platelet Count 155 TH/MM3 Mean Platelet Volume 8.7 FL Neutrophils (%) (Auto) 76.7 % Lymphocytes (%) (Auto) 12.6 % Monocytes (%) (Auto) 5.7 % Eosinophils (%) (Auto) 4.6 % Basophils (%) (Auto) 0.4 % Neutrophils # (Auto) 7.5 TH/MM3 Lymphocytes # (Auto) 1.2 TH/MM3 Monocytes # (Auto) 0.6 TH/MM3 Eosinophils # (Auto) 0.5 TH/MM3 Basophils # (Auto) 0.0 TH/MM3 CBC Comment AUTO DIFF Differential Total Cells 100 Counted Neutrophils % (Manual) 67 % Band Neutrophils % 15 % Lymphocytes % 10 % Monocytes % 3 % Eosinophils % 2 % Neutrophils # (Manual) 8.3 TH/MM3 Metamyelocytes 2 % Myelocytes 1 % Differential Comment FINAL DIFF MANUAL Toxic Granulation 1+ Platelet Estimate NORMAL Platelet Morphology Comment NORMAL Assessment and Plan Problem List: (1) Nephrolithiasis (2) Atrial fibrillation (3) NSVT (nonsustained ventricular tachycardia) (4) History of CVA with residual deficit (5) Sepsis Assessment and Plan 1) Nephrostomy tubes bilaterally 2) Another episode of wide complex tachycardia, NSVT vs Afib with aberrancy, R- R interval appears to change leading more Afib with aberrancy 3) Magnesium noted to be low, will replace 4) No clinical signs/symptoms of ischemia 5) 2D echo pending at this time 6) Will increase Coreg to help with hypertension while in the hospital 7) Xarelto increased to 20mg, his home dose Problem Qualifiers (1) Atrial fibrillation: Qualified Code: I48.2 - Chronic atrial fibrillation (2) Sepsis: Qualified Code: A41.9 - Sepsis, due to unspecified organism Macario Elizabeth DO Jun 04, 2016 10:53
[2016-06-04] MEDS ORDERED: hydrALAZINE HCL 20 MG/ML VIAL IV PUSH PRN (11:00)
--- NOTE | 2016-06-04 11:26 | HHI.PR ---
Subjective History of Present Illness Subjective Remarks S/P bilat nephro tube placement 05/26 Generalized abdominal pain, no acute changes awake, oriented x 3, fatigue, tiring today no n/v eating okay, slow improvement BP improved. Cough SOB noted at rest Hospital Day: 10 Subjective Remarks I feel weak and tired all the time Review of Systems Constitutional Constitutional: Fatigue, Weakness (10 Pt ROS. Postive for fatique, weakness. but slow improvement. Pain rt. UQ. Otherwise negative exam) Constitutional Remarks 10 point ROS done. Positives noted with fatigue weakness bi lateral nephrostomy tube's, anxiety mild, possible mild depression, debility, abdominal pain generalized. Other systems reviewed and negative Pulmonary Respiratory: Shortness of Breath (low air volumes, increased at rest, exertional) GI/Abdomen GI/Abdomen Remarks RT UQ pain continues, with flank pain Genitourinary Remarks Bilateral Nephro tubes both draining clear yellow urine Musculoskeletal MS: Weakness (generalized), Swelling MS Remarks Trace edema ángel LE, generalized debility Integumentary Skin Remarks Bilateral nephrostomy tube's. Clean dry dressing intact Psychiatric Psychiatric: Anxiety, Depression (tired of being the hospital) Vitals/Results Intake & Output 06/03/16 06/03/16 06/04/16 15:00 23:00 07:00 Intake Total 480 ml 280 ml 120 ml Output Total 450 ml 675 ml 420 ml Balance 30 ml -395 ml -300 ml Intake Oral 480 ml 280 ml 120 ml Output Urine Total 450 ml 500 ml 420 ml Drainage Total 175 ml # Bowel Movements 2 0 0 Vital Signs Vital Signs Date Time Temp Pulse Resp B/P Pulse Ox O2 Delivery O2 Flow Rate FiO2 06/04/16 10:46 96 Nasal Cannula 2.00 06/04/16 08:11 98.2 66 20 179/88 97 06/04/16 04:00 97.9 70 22 184/93 97 06/04/16 00:00 97.8 70 22 171/85 97 06/04/16 00:00 Nasal Cannula 3.00 06/03/16 20:00 98.3 70 22 165/75 98 06/03/16 20:00 Nasal Cannula 2.00 06/03/16 19:56 62 06/03/16 18:03 98 Nasal Cannula 2.00 06/03/16 16:00 98.2 73 20 179/83 98 06/03/16 12:00 97.9 75 20 170/89 99 CBC/BMP: 06/03/16 2250 06/03/16 2250 Lab Results Laboratory Tests Test 06/03/16 06/04/16 22:50 02:45 Sodium Level 144 MEQ/L Potassium Level 3.8 MEQ/L Chloride Level 105 MEQ/L Carbon Dioxide Level 32.9 MEQ/L Anion Gap 6 MEQ/L Blood Urea Nitrogen 14 MG/DL Creatinine 1.07 MG/DL Estimat Glomerular Filtration 67 ML/MIN Rate Random Glucose 104 MG/DL Calcium Level 8.4 MG/DL Magnesium Level 1.7 MG/DL Total Creatine Kinase 15 U/L Troponin I LESS THAN 0.02 LESS THAN 0.02 NG/ML NG/ML White Blood Count 9.8 TH/MM3 Red Blood Count 3.71 MIL/MM3 Hemoglobin 11.2 GM/DL Hematocrit 34.4 % Mean Corpuscular Volume 92.6 FL Mean Corpuscular Hemoglobin 30.2 PG Mean Corpuscular Hemoglobin 32.7 % Concent Red Cell Distribution Width 14.6 % Platelet Count 155 TH/MM3 Mean Platelet Volume 8.7 FL Neutrophils (%) (Auto) 76.7 % Lymphocytes (%) (Auto) 12.6 % Monocytes (%) (Auto) 5.7 % Eosinophils (%) (Auto) 4.6 % Basophils (%) (Auto) 0.4 % Neutrophils # (Auto) 7.5 TH/MM3 Lymphocytes # (Auto) 1.2 TH/MM3 Monocytes # (Auto) 0.6 TH/MM3 Eosinophils # (Auto) 0.5 TH/MM3 Basophils # (Auto) 0.0 TH/MM3 CBC Comment AUTO DIFF Differential Total Cells 100 Counted Neutrophils % (Manual) 67 % Band Neutrophils % 15 % Lymphocytes % 10 % Monocytes % 3 % Eosinophils % 2 % Neutrophils # (Manual) 8.3 TH/MM3 Metamyelocytes 2 % Myelocytes 1 % Differential Comment FINAL DIFF MANUAL Toxic Granulation 1+ Platelet Estimate NORMAL Platelet Morphology Comment NORMAL Imaging Remarks Last Impressions Chest X-Ray 06/03/16 0000 Signed Impressions: Service Date/Time: Friday, June 03, 2016 14:12 - CONCLUSION: Improving pulmonary edema. Antwan Jay MD Nephrostomy 05/26/16 0000 Signed Impressions: Service Date/Time: Thursday, May 26, 2016 15:50 - CONCLUSION: 1. There are stones evident filling the entire collecting system of the right kidney. The nephrostomy tube had to be coiled in a dilated upper pole calyx as the renal pelvis is completely stone filled. 2. There is stone encasement of the patient' s ureteral stent. Florentin Castillo MD Abdomen/Pelvis CT 05/25/16 0427 Signed Impressions: Service Date/Time: Wednesday, May 25, 2016 04:31 - CONCLUSION: 1. Bilateral staghorn type renal calculi and left double J stent in place with concretion calcifications both proximal and distal. 2. There is also an obstructing stone in the proximal right ureter measuring 5 mm and causing mild right hydronephrosis. 3. Bilateral fat containing inguinal hernias, small right pleural effusion, probable pericardial effusion, and moderate enlargement of the prostate. Grayson Alcala MD Cardiology Studies Remarks Telemetry shows A. fib in the 70s. Some pauses noted. V. tach noted on . No further V. tach dysrhythmia since Current Medications Active Medications Carvedilol (Coreg) 6.25 mg ONCE ONCE PO; Start 06/04/16 at 11:30; Stop 06/04/16 at 11:31 Carvedilol 12.5 mg 12.5 mg BID PO; Start 06/04/16 at 21:00 Hydralazine HCl (Apresoline Inj) 10 mg Q4H PRN IV PUSH; Start 06/04/16 at 11:00 Magnesium Sulfate/ Dextrose (Magnesium Sulfate 1 Gm Premix) 100 ml @ 100 mls/ hr Q1H IV; Start 06/04/16 at 11:00; Stop 06/04/16 at 12:59 Rivaroxaban (Xarelto) 20 mg DAILY PO Last administered on 06/04/16t 08:49; Admin Dose 20 MG; Start 06/04/16 at 09:00 Physical Exam General General Appearance: Well Developed, Well Nourished, No Acute Distress, Comfortable, Anxious, Obese Appearance Remarks Rt. UQ discomfort. Off and on. Eyes Eye Exam: Pupils Equal, Pupils Reactive Ears & Nose Ears & Nose Exam: Nasal Mucosa [place] Throat Throat Exam: Oral Mucosa [place] & Moist Neck Neck Exam: Neck Supple, Trachea Midline Pulmonary Resp Exam: Breath Sounds Equal, No Distress, Diminished Breath Sounds, Poor Inspiratory Effort Resp Remarks Shortness of breath at rest Cardiology CV Exam: Irregular, Arrhythmia CV Remarks Irregular rhythm, telemetry shows A. fib with some pauses less than 2 seconds. V. tach on 06-03 1. Patient denies chest pain Gastrointestinal/Abdomen GI Exam: Soft, Non-Tender, Bowel Sounds Present, Non-Distended GI Remarks Rt. nephrostomy tube, obese round Genitourinary Exam: Clear Urine Integumentary Skin Exam: Warm, Dry Extremeties Extremities Exam: Pedal Pulses Palpable, Trace Edema Extremeties Remarks 1+ right leg edema. 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 We'll leave drains in for 1-2 weeks and then repeat eval per urology. -appreciate urology -For BPH, urology recommends to continue Flomax and desir if difficulty voiding. -went to IR on 05/26, s/p Bilateral nephrostomy tubes placed with ultrasound and fluoroscopic guidance, draining well -per Dr. Vazquez, continue abx and infection control, he will bring pt back in 1 to 2 wks for further urologic intervention. Acute renal injury-creat improved -off IVF -monitor renal function -avoid nephrotoxic agents Sepsis, UTI and PNA -continue abx -BC 05/25 2/2 GPC, sens. noted -repeat blood c/s remained neg -Per ID, he rec IV Abx [vanco] for 5 more days plus Po Levaquin-Completed Vanco -Has PICC Afib, bradycardia, with hypotension. Now resolved -Continue Cardizem and Coreg -Telemetry monitoring -Continue Xarelto, heparin d/c Shortness of breath, acute onset. Discussed with Dr. Harrison. Chest x-ray ordered. Cardiology to see/consult on 06-03 HTN Patient has home meds continued -Clonidine PRN AMS, encephalopathy, likely sec. sepsis,-now resolved -ammonia normal Hx CVA with right sided weakness, pt. deconditioned now -PT eval and tx -OOB today. Very debilitated. Spoke to case management about discharge planning looking at [facility] for strengthening, but may need to return to hospital for removal of nephrostomy tubes per urology. May look at transfer tomorrow if patient is stable from a cardiac standpoint. Discussed with Dr. Christy Orozco for DVT prophylaxis PT eval and tx-OOB OOB, tires easily Appreciate cardiology input Dysrhythmia noted V. tach 1. Asymptomatic except for extreme fatigue which is a constant issue. Does have some less than 2 second pauses, with Bob feliciano D/W RN D/W Dr. Harrison D/W pt. This patient was seen by myself and Dr. Harrison, this note is written on his behalf Discussed Condition with: Patient, Pricing Associate Problem Qualifiers (1) Sepsis: Qualified Code: A41.9 - Sepsis, due to unspecified organism (2) Pneumonia: Qualified Code: J18.1 - Pneumonia of left lower lobe due to infectious organism (3) UTI (urinary tract infection): Qualified Code: N39.0 - Urinary tract infection with hematuria, site unspecified (4) Atrial fibrillation: Qualified Code: I48.2 - Chronic atrial fibrillation (5) BPH (benign prostatic hyperplasia): Mackenzie Solis Jun 04, 2016 11:26
[2016-06-04] MEDS ORDERED: CARVEDILOL 6.25 MG TAB PO ONE (11:30)
[2016-06-04] MEDS: LEVOFLOXACIN 250 MG TAB PO SCH (11:38)
[2016-06-04] MEDS: MAGNESIUM SULFATE 1 GM PREMIX 100 ML IV SCH ×2 (11:38→13:18)
--- NOTE | 2016-06-04 15:34 | EKG ---
Date Performed: 06/03/2016 Time Performed: 11:20:12 PTAGE: 80 years EKG: Atrial fibrillation Possible posterior infarct with predominant R waves in V1 and V2 Compar ed to previous tracing, previously noted Right bundle branch block is now present Clinical correlatio n is recommended Abnormal ECG PREVIOUS TRACING : 05/25/2016 04.23 DOCTOR: Obdulia Grace Interpretating Date/Time 06/04/2016 15:33:37
--- NOTE | 2016-06-04 16:19 | EC ---
Study Study Date:06/04/2016 STUDY CONCLUSIONS SUMMARY - Left ventricle: The cavity size was normal. Wall thickness was normal. Systolic function was normal. The estimated ejection fraction was 55%. Wall motion was normal; there were no regional wall motion abnormalities. - Aortic valve: Transvalvular velocity was increased. There was mild stenosis. - Mitral valve: Mild regurgitation. - Left atrium: The atrium was severely dilated. - Pericardium, extracardiac: There wassmall pericardial effusion. If LV function is below 40, please consider prescribing an ACEI or ARB or document rationale for non-use. PROCEDURE DATA STUDY STATUS: Elective. Procedure: Transthoracic echocardiography. Image quality was good. Scanning was performed from the parasternal, apical, and subcostal acoustic windows. Study completion: The patient tolerated the procedure well. Transthoracic echocardiography. M-mode, complete 2D, complete spectral Doppler, and color Doppler. Height: Height: 75in. Weight: Weight: 242.5lb. Body mass index: BMI: 30.4kg/m^2. Body surface area: BSA: 2.38m^2. Patient status: Inpatient. CARDIAC ANATOMY LEFT VENTRICLE: The cavity size was normal. Wall thickness was normal. Systolic function was normal. The estimated ejection fraction was 55%. Wall motion was normal; there were no regional wall motion abnormalities. AORTIC VALVE: Trileaflet; moderately thickened, moderately calcified leaflets. Doppler: Transvalvular velocity was increased. There was mild stenosis. No regurgitation. Valve area: 1.51cm^2 (Vmax). Indexed valve area: 0.63cm^2/m^2 (Vmax). Peak gradient: 21mm Hg (S). AORTA: Aortic root: The aortic root was normal in size. MITRAL VALVE: Moderately thickened, moderately calcified leaflets, . Doppler: Transvalvular velocity was within the normal range. There was no evidence for stenosis. Mild regurgitation. Peak gradient: 5mm Hg (D). LEFT ATRIUM: The atrium was severely dilated. RIGHT VENTRICLE: The cavity size was normal. Wall thickness was normal. PULMONIC VALVE: Doppler: Transvalvular velocity was within the normal range. There was no evidence for stenosis. No regurgitation. TRICUSPID VALVE: Structurally normal valve. Doppler: Transvalvular velocity was within the normal range. Trace regurgitation. PULMONARY ARTERY: The main pulmonary artery was normal-sized. Systolic pressure was within the normal range. RIGHT ATRIUM: The atrium was normal in size. PERICARDIUM: There wassmall pericardial effusion. SYSTEMIC VEINS: Inferior vena cava: The vessel was normal in size. Patient weight: 242.5lb _Ejection fraction:_ 65-75% _Fractional shortening:_ 32% up to 5Kg 5-11.5Kg 11.6-22.9Kg 23-45Kg 45-57Kg Aortic Root 7-13 <17 13-22 17-27 17-27 LA diam 6-13 <23 24-38 33-47 37-40 RVID 10-17 7-15 7-15 7-18 8-17 LVIDd 12-22 <32 24-38 33-47 37-40 LVPW 2-4 3-6 5-7 6-8 7-8 IVS 2-4 3-6 5-7 6-8 7-8 BASIC MEASUREMENTS ADULT NORMAL Left ventricle LV internal dimension, ED, chordal 51.1 mm 43-52 level, PLAX LV internal dimension, ES, chordal *39.5 mm 23-38 level, PLAX Fractional shortening, chordal level, *23 % >29 PLAX LV posterior wall thickness, ED 8.86 mm IVS/LVPW ratio, ED *1.56 <1.3 Volume, ED, MOD, 1-plane 114 ml Volume, ES, MOD, 1-plane 32 ml Ejection fraction, MOD, 1-plane 72 % Stroke volume, MOD, 1-plane 82 ml Volume index, ED, MOD, 1-plane 48 ml/m^2 Volume index, ES, MOD, 1-plane 13 ml/m^2 Stroke index, MOD, 1-plane 34.5 ml/m^2 Volume, ED, MOD, 2-plane 108 ml Volume, ES, MOD, 2-plane 49 ml Ejection fraction, MOD, 2-plane 55 % Stroke volume, MOD, 2-plane 59 ml Volume index, ED, MOD, 2-plane 45 ml/m^2 Volume index, ES, MOD, 2-plane 21 ml/m^2 Stroke index, MOD, 2-plane 24.8 ml/m^2 Ventricular septum Septal thickness, ED 13.8 mm Aortic valve Leaflet separation 18 mm 15-26 BASIC MEASUREMENTS ADULT NORMAL Aortic valve Leaflet separation 18 mm 15-26 Aorta Root diameter, ED 25 mm 20-37 Left atrium Anterior-posterior dimension, ES *71 mm 19-40 Anterior-posterior dimension index, ES *2.98 cm/m^2 <2.2 LA/aortic root ratio 2.84 DOPPLER MEASUREMENTS ADULT NORMAL Main pulmonary artery Pressure, S 19 mm Hg =30 Aortic valve Peak velocity, S 229 cm/s Peak gradient, S 21 mm Hg Valve area, Vmax 1.51 cm^2 Valve area index, Vmax 0.63 cm^2/m^2 Mitral valve Peak E-wave velocity 108 cm/s Deceleration time 151 ms 150-230 Peak gradient, D 5 mm Hg Maximal regurgitant velocity 424 cm/s Tricuspid valve Regurgitant peak velocity 178 cm/s Peak RV-RA gradient, S 13 mm Hg Maximal regurgitant velocity 178 cm/s Systemic veins Estimated CVP 10 mm Hg Right ventricle RV pressure, S 26 mm Hg <30 Pulmonic valve Peak velocity, S 130 cm/s LEGEND: Mean values are shown as u=mean value. Asterisk (*) alvarez values outside specified normal range. Prepared and signed by Jake Mcelroy [id number]
[2016-06-04] MEDS: ACETAMINOPHEN/HYDROcodone 325 MG/7.5 MG TAB PO PRN (16:27)
--- NOTE | 2016-06-04 16:59 | HHI.IDPN ---
Note Infectious Disease Note Feels is tired. Has SHAH. Had elevated BP earlier. Received pain medicine for headache. HR 79. Afebrile. Patient presented to the emergency department on 05/25 with generalized weakness and fever. Seen for Gram-positive bacteremia and Complicated UTI/pyelonephritis. Staph coag negative Bacteremia. PAST MEDICAL HISTORY 1. Blood infection one year ago treated with IV antibiotics in [place]. 2. Cerebrovascular accident 3. Bilateral kidney stones 4. Chronic atrial fibrillation 5. GERD 6. Benign prostatic hypertrophy 7. Depression ALLERGIES NO KNOWN DRUG ALLERGIES. MEDICATIONS Levaquin. OBJECTIVE: SOCIAL HISTORY No alcohol use. No illicit drug use. No tobacco use. The patient moved to this area from [place] two months ago. He has children who live here in [place]. FAMILY HISTORY Noncontributory Vital Signs Date Time Temp Pulse Resp B/P Pulse Ox O2 Delivery O2 Flow Rate FiO2 06/04/16 12:33 146/80 Automatic Cuff 06/04/16 10:46 96 Nasal Cannula 2.00 06/04/16 10:00 99.3 73 18 196/92 99 06/04/16 09:00 73 06/04/16 08:11 98.2 66 20 179/88 97 06/04/16 04:00 97.9 70 22 184/93 97 06/04/16 00:00 97.8 70 22 171/85 97 06/04/16 00:00 Nasal Cannula 3.00 06/03/16 20:00 98.3 70 22 165/75 98 06/03/16 20:00 Nasal Cannula 2.00 06/03/16 19:56 62 06/03/16 18:03 98 Nasal Cannula 2.00 06/03/16 06/03/16 06/04/16 15:00 23:00 07:00 Intake Total 480 ml 280 ml 120 ml Output Total 450 ml 675 ml 420 ml Balance 30 ml -395 ml -300 ml Intake Oral 480 ml 280 ml 120 ml Output Urine Total 450 ml 500 ml 420 ml Drainage Total 175 ml # Bowel Movements 2 0 0 Laboratory Tests Test 06/03/16 22:50 White Blood Count 9.8 TH/MM3 Red Blood Count 3.71 MIL/MM3 Hemoglobin 11.2 GM/DL Hematocrit 34.4 % Mean Corpuscular Volume 92.6 FL Mean Corpuscular Hemoglobin 30.2 PG Mean Corpuscular Hemoglobin 32.7 % Concent Red Cell Distribution Width 14.6 % Platelet Count 155 TH/MM3 Mean Platelet Volume 8.7 FL Neutrophils (%) (Auto) 76.7 % Lymphocytes (%) (Auto) 12.6 % Monocytes (%) (Auto) 5.7 % Eosinophils (%) (Auto) 4.6 % Basophils (%) (Auto) 0.4 % Neutrophils # (Auto) 7.5 TH/MM3 Lymphocytes # (Auto) 1.2 TH/MM3 Monocytes # (Auto) 0.6 TH/MM3 Eosinophils # (Auto) 0.5 TH/MM3 Basophils # (Auto) 0.0 TH/MM3 CBC Comment AUTO DIFF Differential Total Cells 100 Counted Neutrophils % (Manual) 67 % Band Neutrophils % 15 % Lymphocytes % 10 % Monocytes % 3 % Eosinophils % 2 % Neutrophils # (Manual) 8.3 TH/MM3 Metamyelocytes 2 % Myelocytes 1 % Differential Comment FINAL DIFF MANUAL Toxic Granulation 1+ Platelet Estimate NORMAL Platelet Morphology Comment NORMAL Laboratory Tests Test 06/03/16 06/04/16 22:50 02:45 Sodium Level 144 MEQ/L Potassium Level 3.8 MEQ/L Chloride Level 105 MEQ/L Carbon Dioxide Level 32.9 MEQ/L Anion Gap 6 MEQ/L Blood Urea Nitrogen 14 MG/DL Creatinine 1.07 MG/DL Estimat Glomerular Filtration 67 ML/MIN Rate Random Glucose 104 MG/DL Calcium Level 8.4 MG/DL Magnesium Level 1.7 MG/DL Total Creatine Kinase 15 U/L Troponin I LESS THAN 0.02 LESS THAN 0.02 NG/ML NG/ML IMAGING: Nephrostomy 05/26/16 0000 Signed Impressions: Service Date/Time: Thursday, May 26, 2016 15:50 - CONCLUSION: 1. There are stones evident filling the entire collecting system of the right kidney. The nephrostomy tube had to be coiled in a dilated upper pole calyx as the renal pelvis is completely stone filled. 2. There is stone encasement of the patient' s ureteral stent. Florentin Castillo MD Chest X-Ray 05/26/16 0000 Signed Impressions: Service Date/Time: Thursday, May 26, 2016 19:10 - CONCLUSION: 1. Mild basilar airspace disease. Cardiomegaly. No pneumothorax. Sky Hernandes MD Abdomen/Pelvis CT 05/25/16 0427 Signed Impressions: Service Date/Time: Wednesday, May 25, 2016 04:31 - CONCLUSION: 1. Bilateral staghorn type renal calculi and left double J stent in place with concretion calcifications both proximal and distal. 2. There is also an obstructing stone in the proximal right ureter measuring 5 mm and causing mild right hydronephrosis. 3. Bilateral fat containing inguinal hernias, small right pleural effusion, probable pericardial effusion, and moderate enlargement of the prostate. Grayson Alcala MD PHYSICAL EXAMINATION GENERAL: No acute distress. HEENT: No icterus. NECK: Supple without adenopathy or swelling. LUNGS: Clear decreased breath sounds. HEART: Irregular rate and rhythm. No audible murmurs or rubs or gallops. ABDOMEN: Bowel sounds present, soft, nontender on palpation. The nephrostomy tubes has clear tho urine. EXTREMITIES: No clubbing or cyanosis, no edema. Pulses are symmetric 2+ in the upper and lower extremities. SKIN: No rash. NEURO: Weakness of the upper and lower extremities. IMPRESSION 1. Severe sepsis. Staph coag negative. Repeat blood culture negative. 2. Pyelonephritis 3. Leukocytosis secondary to infection. WBC now nl. 4. Bacteremia due to gram positive bacteria. No clear source. Patient has kidney stones an urinary stents. 5. Acute kidney disease improving. RECOMMENDATIONS PO Levaquin another 5 days. Maurilio Cornejo MD Jun 04, 2016 16:59
[2016-06-04] MEDS: MIRTAZAPINE 15 MG TAB PO SCH (21:00)
[2016-06-04] MEDS: CARVEDILOL 12.5 MG TAB PO SCH (21:00)
[2016-06-04] MEDS: TAMSULOSIN HCL 0.4 MG CAP PO SCH (21:02)
[2016-06-05] VITALS (8 sets, daily range): BP systolic 113–141; BP diastolic 63–70; PULSE 55–70; RESP 18–20; TEMP 96.7–98.3; O2SAT 95–99
[2016-06-05 06:11] LABS: BICARBONATE 36.3 MEQ/L (21.0-32.0); POTASSIUM 3.9 MEQ/L (3.5-5.1)
[2016-06-05] MEDS: SODIUM CHLORIDE 0.9% FLUSH 5 ML FLUSH IV FLUSH SCH ×2 (09:00→20:53)
[2016-06-05] MEDS: RIVAROXABAN 20 MG TAB PO SCH (09:14)
[2016-06-05] MEDS: DILTIAZEM-CD 120 MG CAP ER PO SCH (09:14)
[2016-06-05] MEDS: LEVOFLOXACIN 250 MG TAB PO SCH (09:14)
[2016-06-05] MEDS: CARVEDILOL 12.5 MG TAB PO SCH ×2 (09:14→20:52)
[2016-06-05] MEDS: ACETAMINOPHEN/HYDROcodone 325 MG/7.5 MG TAB PO PRN ×2 (09:14→18:12)
[2016-06-05] MEDS: PANTOPRAZOLE SOD 40 MG DELAYED RELEASE TAB PO SCH (09:14)
--- NOTE | 2016-06-05 11:27 | HHI.PR ---
Subjective Hospital Day: 10 Subjective Remarks S/P bilat nephro tube placement 05/26 awake, oriented x 3 no pain no cp no sob afebrile BP better Telemetry reviewed, had another episode of NSVT, also 2-3 episodes of pauses, heart rate went down to 38. Patient asymptomatic Review of Systems Constitutional Constitutional: Fatigue, Weakness (10 Pt ROS. Postive for fatique, weakness. but slow improvement. Pain rt. UQ. Otherwise negative exam) Constitutional Remarks 12 point ROS completed, negative except as noted above Pulmonary Respiratory: Shortness of Breath (low air volumes, increased at rest, exertional) Musculoskeletal MS: Weakness (generalized), Swelling Psychiatric Psychiatric: Anxiety, Depression (tired of being the hospital) Vitals/Results Intake & Output 06/04/16 06/04/16 06/05/16 15:00 23:00 07:00 Intake Total 666 ml 240 ml 120 ml Output Total 1450 ml 200 ml 200 ml Balance -784 ml 40 ml -80 ml Intake Oral 480 ml 240 ml 120 ml IV Total 186 ml Output Urine Total 400 ml 0 ml Drainage Total 1050 ml 200 ml 200 ml # Bowel Movements 0 0 Vital Signs Vital Signs Date Time Temp Pulse Resp B/P Pulse Ox O2 Delivery O2 Flow Rate FiO2 06/05/16 06:17 Nasal Cannula 3.00 06/05/16 04:02 97.6 70 18 113/67 97 06/05/16 03:22 65 06/04/16 23:15 97.8 61 18 129/59 96 06/04/16 20:10 98.4 66 18 133/63 96 06/04/16 20:03 74 06/04/16 20:00 Nasal Cannula 2.00 06/04/16 16:00 98.4 72 20 152/89 97 06/04/16 12:33 146/80 Automatic Cuff CBC/BMP: 06/03/16 2250 06/05/16 0520 Lab Results Laboratory Tests Test 06/05/16 05:20 Sodium Level 145 MEQ/L Potassium Level 3.9 MEQ/L Chloride Level 104 MEQ/L Carbon Dioxide Level 36.3 MEQ/L Anion Gap 5 MEQ/L Blood Urea Nitrogen 12 MG/DL Creatinine 1.21 MG/DL Estimat Glomerular Filtration 58 ML/MIN Rate Random Glucose 104 MG/DL Calcium Level 8.4 MG/DL Magnesium Level 2.0 MG/DL Physical Exam General General Appearance: Well Developed, Well Nourished, No Acute Distress, Comfortable, Obese Eyes Eye Exam: Pupils Equal, Pupils Reactive Ears & Nose Ears & Nose Exam: Nasal Mucosa [place] Throat Throat Exam: Oral Mucosa [place] & Moist Neck Neck Exam: Neck Supple, Trachea Midline Pulmonary Resp Exam: Breath Sounds Equal, No Distress, Diminished Breath Sounds, Poor Inspiratory Effort Cardiology CV Exam: Irregular, Arrhythmia Gastrointestinal/Abdomen GI Exam: Soft, Non-Tender, Bowel Sounds Present, Non-Distended Genitourinary Exam: Clear Urine Remarks bilat nephrostomy tubes Musculoskeletal MS Remarks right sided weakness upper and lower Integumentary Skin Exam: Warm, Dry Extremeties Extremities Exam: Pedal Pulses Palpable, Trace Edema Neurologic Neuro Exam: Alert, Awake, Oriented, Speech Clear, Moving All Extremities Neuro Remarks Right-sided weakness Psychiatric Psych Exam: Appropriate Responses VTE Prophylaxis VTE Prophylaxis Device: SCDs VTE Remarks Xarelto PUD Prophylasis PUD Prophylaxis: Protonix Assessment/Plan Problem List: (1) Sepsis (2) Pneumonia (3) Renal insufficiency (4) Nephrolithiasis (5) UTI (urinary tract infection) (6) Atrial fibrillation (7) Bradycardia (8) BPH (benign prostatic hyperplasia) (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 We'll leave drains in for 1-2 weeks and then repeat eval per urology. -appreciate urology -For BPH, urology recommends to continue Flomax and desir if difficulty voiding. -went to IR on 05/26, s/p Bilateral nephrostomy tubes placed with ultrasound and fluoroscopic guidance, draining well -per Dr. Vazquez, continue abx and infection control, he will bring pt back in 1 to 2 wks for further urologic intervention. Acute renal injury-creat improved -off IVF -monitor renal function -avoid nephrotoxic agents Sepsis, UTI and PNA -continue abx -BC 05/25 2/2 GPC, sens. noted -repeat blood c/s remained neg -Per ID, he rec IV Abx [vanco] for 5 more days plus Po Levaquin-Completed Vanco -Has PICC Afib, bradycardia, with hypotension. Now resolved 06/03 patient had episodes of NSVT, pauses -Continue Cardizem and Coreg -Telemetry monitoring -Continue Xarelto -Mag replaced -appreciate cardiology input, recommends poss STT. pt. wants to think about as he has been through a lot. Continue to monitor. Inc Coreg to control BP HTN-was initially low, then elevated. Stable overnight -continue Cardizem and Coreg AMS, encephalopathy, likely sec. sepsis,-now resolved -ammonia normal Hx CVA with right sided weakness, pt. deconditioned now -PT eval and tx Xarelto for DVT prophylaxis PT eval and tx-OOB Continue with above treatment, not ready to proceed to CIR until clear by cardiology. May need further work up, continues to have ectopy. D/W RN D/W Dr. Harrison D/W pt. This patient was seen by myself and Dr. Harrison, this note is written on his behalf Problem Qualifiers (1) Sepsis: Qualified Code: A41.9 - Sepsis, due to unspecified organism (2) Pneumonia: Qualified Code: J18.1 - Pneumonia of left lower lobe due to infectious organism (3) UTI (urinary tract infection): Qualified Code: N39.0 - Urinary tract infection with hematuria, site unspecified (4) Atrial fibrillation: Qualified Code: I48.2 - Chronic atrial fibrillation (5) BPH (benign prostatic hyperplasia): Fanny Napoles Jun 05, 2016 11:27 (5) BPH (benign prostatic hyperplasia): Fanny Napoles Jun 05, 2016 11:27
--- NOTE | 2016-06-05 12:19 | PD.CARD.PN ---
Subjective Subjective Remarks No chest pain, no shortness of breath, feeling better today Did have one episode of wide complex tachycardia looking more towards NSVT, did have a few short pauses of 2-3 seconds while sleeping Objective Medications Current Medications Medications (Trade) Dose Ordered Sig/Axel Route Start Time Stop Time Status Last Admin (NS Flush) 2 ml UNSCH PRN IV FLUSH 05/25/16 05:30 (NS Flush) 2 ml BID IV FLUSH 05/25/16 09:00 06/05/16 09:00 (Tylenol) 650 mg Q4H PRN PO 05/25/16 05:30 06/03/16 14:48 (Zofran Inj) 4 mg Q6H PRN IV 05/25/16 05:30 06/04/16 18:30 (Protonix) 40 mg DAILY PO 05/25/16 09:00 06/05/16 09:14 (Remeron) 15 mg HS PO 05/25/16 21:00 06/04/16 21:00 (Flomax) 0.4 mg HS PO 05/25/16 21:00 06/04/16 21:02 Miscellaneous Information Patient in critical care unit? Ass... Q361D XX 05/25/16 23:15 (Cardizem Cd) 120 mg DAILY PO 05/31/16 09:00 06/05/16 09:14 (Levaquin) 250 mg DAILY@11 PO 05/31/16 11:00 06/05/16 09:14 (NS Flush) See Protocol DAILY IVF 05/31/16 09:00 06/05/16 09:00 (NS Flush) See Protocol UNSCH PRN IVF 05/30/16 18:00 (Heparin Central Flush) See Protocol DAILY IVF 05/31/16 09:00 06/05/16 09:00 (Heparin Central Flush) See Protocol UNSCH PRN IVF 05/30/16 18:00 (NS Flush) See Protocol UNSCH PRN IVF 05/30/16 18:00 (Vasotec Inj) 1.25 mg Q6H PRN IV PUSH 06/02/16 16:00 06/04/16 11:38 ([place] 7.5-325 Mg) 1 tab Q4H PRN PO 06/02/16 15:45 06/05/16 09:14 (Xarelto) 20 mg DAILY PO 06/04/16 09:00 06/05/16 09:14 (Coreg) 12.5 mg BID PO 06/04/16 21:00 06/05/16 09:14 (Apresoline Inj) 10 mg Q4H PRN IV PUSH 06/04/16 11:00 Vital Signs / I&O Vital Signs Date Time Temp Pulse Resp B/P Pulse Ox O2 Delivery O2 Flow Rate FiO2 06/05/16 06:17 Nasal Cannula 3.00 06/05/16 04:02 97.6 70 18 113/67 97 06/05/16 03:22 65 06/04/16 23:15 97.8 61 18 129/59 96 06/04/16 20:10 98.4 66 18 133/63 96 06/04/16 20:03 74 06/04/16 20:00 Nasal Cannula 2.00 06/04/16 16:00 98.4 72 20 152/89 97 06/04/16 12:33 146/80 Automatic Cuff I/O 06/04/16 06/04/16 06/04/16 06/05/16 06/05/16 06/05/16 07:00 15:00 23:00 07:00 15:00 23:00 Intake Total 120 ml 666 ml 240 ml 120 ml Output Total 420 ml 1450 ml 200 ml 200 ml Balance -300 ml -784 ml 40 ml -80 ml Intake Oral 120 ml 480 ml 240 ml 120 ml IV Total 186 ml Output Urine Total 420 ml 400 ml 0 ml Drainage Total 1050 ml 200 ml 200 ml # Bowel Movements 0 0 0 Physical Exam GENERAL: NAD, AAOx3 SKIN: Warm and dry. HEAD: Atraumatic. Normocephalic. EYES: Pupils equal and round. No scleral icterus. No injection or drainage. ENT: No nasal bleeding or discharge. Mucous membranes pink and moist. NECK: Trachea midline. No JVD. CARDIOVASCULAR: Regular rate and rhythm. 1/6 holosystolic murmur at the apex RESPIRATORY: No accessory muscle use. Decreased breath sounds bilaterally GASTROINTESTINAL: Abdomen soft, non-tender, nondistended. Hepatic and splenic margins not palpable. MUSCULOSKELETAL: Extremities without clubbing, cyanosis, or edema. No obvious deformities. NEUROLOGICAL: Awake and alert. No obvious cranial nerve deficits. Motor grossly within normal limits. Five out of 5 muscle strength in the arms and legs. Normal speech. PSYCHIATRIC: Appropriate mood and affect; insight and judgment normal. B/L nephrostomy tubes in place and draining Laboratory Laboratory Tests Test 06/05/16 05:20 Sodium Level 145 MEQ/L Potassium Level 3.9 MEQ/L Chloride Level 104 MEQ/L Carbon Dioxide Level 36.3 MEQ/L Anion Gap 5 MEQ/L Blood Urea Nitrogen 12 MG/DL Creatinine 1.21 MG/DL Estimat Glomerular Filtration 58 ML/MIN Rate Random Glucose 104 MG/DL Calcium Level 8.4 MG/DL Magnesium Level 2.0 MG/DL Assessment and Plan Problem List: (1) Nephrolithiasis (2) Atrial fibrillation (3) NSVT (nonsustained ventricular tachycardia) (4) History of CVA with residual deficit (5) Sepsis Assessment and Plan 1) Nephrostomy tubes bilaterally 2) Another episode of wide complex tachycardia, NSVT vs Afib with aberrancy, previously felt to be Afib with aberrancy as R to R interval change, but newest one unsure 3) Magnesium noted to be low, was replaced 4) No clinical signs/symptoms of ischemia 5) EF 55%, small pericardial effusion, possibly due to uremia? will need echo in 1-2 weeks to check for stability vs growth 6) Will increase Coreg to help with hypertension while in the hospital 7) Xarelto increased to 20mg, his home dose 8) Spoke to Sebastian about consideration of stress testing inpatient vs outpatient vs medical management for NSVT... he feels like he has been through a lot and would like to wait 24 hours to make the decision to see if he has any other events Problem Qualifiers (1) Atrial fibrillation: Qualified Code: I48.2 - Chronic atrial fibrillation (2) Sepsis: Qualified Code: A41.9 - Sepsis, due to unspecified organism Macario Elizabeth DO Jun 05, 2016 12:19
[2016-06-05] MEDS: MIRTAZAPINE 15 MG TAB PO SCH (20:52)
[2016-06-05] MEDS: TAMSULOSIN HCL 0.4 MG CAP PO SCH (20:52)
[2016-06-06 04:00] VITALS: BP 147/70; PULSE 71; RESP 18; TEMP 97.3; O2SAT 98
[2016-06-06] MEDS: ACETAMINOPHEN/HYDROcodone 325 MG/7.5 MG TAB PO PRN ×3 (04:39→20:50)
[2016-06-06 08:16] VITALS: BP 146/68; PULSE 67; RESP 18; TEMP 97.8; O2SAT 97
[2016-06-06 09:00] VITALS: PULSE 66
[2016-06-06] MEDS: SODIUM CHLORIDE 0.9% FLUSH 5 ML FLUSH IV FLUSH SCH ×2 (09:00→20:51)
[2016-06-06] MEDS ORDERED: REGADENOSON INJ 0.4 MG/5 ML SYR ONE (10:00)
--- NOTE | 2016-06-06 10:22 | HHI.PR ---
Subjective Hospital Day: 10 Subjective Remarks S/P bilat nephro tube placement 05/26 back from STT felt nauseous during procedure back pain no cp no sob tele reviewed, afib, amadou, 4 beat NSVT less ectopy Review of Systems Constitutional Constitutional: Fatigue, Weakness (10 Pt ROS. Postive for fatique, weakness. but slow improvement. Pain rt. UQ. Otherwise negative exam) Constitutional Remarks 12 point ROS completed, negative except as noted above Pulmonary Respiratory: Shortness of Breath (low air volumes, increased at rest, exertional) Musculoskeletal MS: Weakness (generalized), Swelling Psychiatric Psychiatric: Anxiety, Depression (tired of being the hospital) Vitals/Results Intake & Output 06/05/16 06/05/16 06/06/16 15:00 23:00 07:00 Intake Total 480 ml 240 ml 100 ml Output Total 200 ml 400 ml 500 ml Balance 280 ml -160 ml -400 ml Intake Oral 480 ml 240 ml 100 ml IV Total 0 ml Output Urine Total 200 ml 0 ml Drainage Total 400 ml 500 ml # Bowel Movements 0 0 0 Vital Signs Vital Signs Date Time Temp Pulse Resp B/P Pulse Ox O2 Delivery O2 Flow Rate FiO2 06/06/16 08:16 97.8 67 18 146/68 97 06/06/16 04:00 97.3 71 18 147/70 98 06/05/16 23:50 97.4 55 18 135/63 95 06/05/16 20:45 Nasal Cannula 3.00 06/05/16 20:00 97.7 58 20 141/69 97 06/05/16 20:00 60 06/05/16 16:00 96.7 57 20 118/67 98 06/05/16 12:00 98.3 63 20 127/69 99 CBC/BMP: 06/03/16 2250 06/05/16 0520 Physical Exam General General Appearance: Well Developed, Well Nourished, No Acute Distress, Comfortable, Obese Eyes Eye Exam: Pupils Equal, Pupils Reactive Ears & Nose Ears & Nose Exam: Nasal Mucosa [place] Throat Throat Exam: Oral Mucosa [place] & Moist Neck Neck Exam: Neck Supple, Trachea Midline Pulmonary Resp Exam: Breath Sounds Equal, No Distress, Diminished Breath Sounds, Poor Inspiratory Effort Cardiology CV Exam: Irregular, Arrhythmia Gastrointestinal/Abdomen GI Exam: Soft, Non-Tender, Bowel Sounds Present, Non-Distended Genitourinary Exam: Clear Urine Remarks bilat nephrostomy tubes Musculoskeletal MS Remarks right sided weakness upper and lower Integumentary Skin Exam: Warm, Dry Extremeties Extremities Exam: Pedal Pulses Palpable, Trace Edema Neurologic Neuro Exam: Alert, Awake, Oriented, Speech Clear, Moving All Extremities Neuro Remarks Right-sided weakness Psychiatric Psych Exam: Appropriate Responses VTE Prophylaxis VTE Prophylaxis Device: SCDs VTE Remarks Xarelto PUD Prophylasis PUD Prophylaxis: Protonix Assessment/Plan Problem List: (1) Sepsis (2) Pneumonia (3) Renal insufficiency (4) Nephrolithiasis (5) UTI (urinary tract infection) (6) Atrial fibrillation (7) Bradycardia (8) BPH (benign prostatic hyperplasia) (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 We'll leave drains in for 1-2 weeks and then repeat eval per urology. -appreciate urology -For BPH, urology recommends to continue Flomax and desir if difficulty voiding. -went to IR on 05/26, s/p Bilateral nephrostomy tubes placed with ultrasound and fluoroscopic guidance, draining well -per Dr. Vazquez, continue abx and infection control, he will bring pt back in 1 to 2 wks for further urologic intervention. Acute renal injury-creat improved -off IVF -monitor renal function -avoid nephrotoxic agents Sepsis, UTI and PNA -continue abx -BC 05/25 2/2 GPC, sens. noted -repeat blood c/s remained neg -Per ID, he rec IV Abx [vanco] for 5 more days plus Po Levaquin-Completed Vanco -Has PICC Afib, bradycardia, with hypotension. Now resolved 06/03 patient had episodes of NSVT, pauses -Continue Cardizem and Coreg -Telemetry monitoring -Continue Xarelto -Mag replaced -appreciate cardiology input -pt went for STT, results pending, further rec. per Dr. Elizabeth -continue with Coreg HTN-was initially low, then elevated. Stable overnight -continue Cardizem and Coreg AMS, encephalopathy, likely sec. sepsis,-now resolved -ammonia normal Hx CVA with right sided weakness, pt. deconditioned now -PT eval and tx Xarelto for DVT prophylaxis PT eval and tx-OOB Continue with above treatment, not ready to proceed to CIR until clear by cardiology. May need further work up, continues to have ectopy. D/W RN D/W Dr. Harrison D/W pt. This patient was seen by myself and Dr. Harrison, this note is written on his behalf Problem Qualifiers (1) Sepsis: Qualified Code: A41.9 - Sepsis, due to unspecified organism (2) Pneumonia: Qualified Code: J18.1 - Pneumonia of left lower lobe due to infectious organism (3) UTI (urinary tract infection): Qualified Code: N39.0 - Urinary tract infection with hematuria, site unspecified (4) Atrial fibrillation: Qualified Code: I48.2 - Chronic atrial fibrillation (5) BPH (benign prostatic hyperplasia): Fanny Napoles Jun 06, 2016 10:22 Fanny Napoles Jun 06, 2016 10:22
[2016-06-06] MEDS: PANTOPRAZOLE SOD 40 MG DELAYED RELEASE TAB PO SCH (11:40)
[2016-06-06] MEDS: CARVEDILOL 12.5 MG TAB PO SCH ×2 (11:40→20:50)
[2016-06-06] MEDS: DILTIAZEM-CD 120 MG CAP ER PO SCH (11:40)
[2016-06-06] MEDS: LEVOFLOXACIN 250 MG TAB PO SCH (11:40)
[2016-06-06 12:01] VITALS: BP 147/76; PULSE 84; RESP 20; TEMP 97.7; O2SAT 95
--- NOTE | 2016-06-06 12:02 | RADRPT ---
EXAM DATE/TIME: 06/06/2016 09:34 [facility] COMPARISON: No previous studies available for comparison. INDICATIONS : Tachycardia, atrial fibrillation and asthma. Coronary atherosclerosis. Abnormal EKG. DOSE: 31 mCi Tc99m Myoview at stress. 10 mCi Tc99m Myoview at rest. 0.4 mg Lexiscan STRESS SYMPTOMS: Nausea. EJECTION FRACTION: 64% MEDICAL HISTORY : Hypertension. SURGICAL HISTORY : Uterine stent. ENCOUNTER: Initial ACUITY: 1 day PAIN SCALE: 2/10 LOCATION: Bilateral chest TECHNIQUE: The patient underwent pharmacologic stress with infusion of prescribed dose. Continuous ECG tracing was monitored during stress. Gated SPECT imaging was performed after stress and conventional SPECT i maging was performed at rest. The examination was performed on a SPECT/CT scanner, both attenuation and non-corrected datasets were reviewed. FINDINGS: DISTRIBUTION: The maximum perfused segment at stress is in the septal wall. PERFUSION STUDY: There is a moderate sized mild reversible perfusion defect in the distal lateral wall. GATED STUDY: There is intact wall motion and thickening without hypokinetic or dyskinetic segments. CONCLUSION: 1. Moderate sized mild reversible perfusion defect of the distal lateral wall indicating possible isc hemic segment. 2. No focal wall motion abnormality. 3. Ejection fraction within normal limits. RISK CATEGORY: 2- Intermediate Risk Kyle French MD on June 06, 2016 at 11:42 Board Certified Radiologist. This report was verified electronically.
[2016-06-06 16:02] VITALS: BP 130/73; PULSE 72; RESP 18; TEMP 97.4; O2SAT 98
[2016-06-06] MEDS ORDERED: HEPARIN-NS/PF INJ 500 ML ONE (17:01)
--- NOTE | 2016-06-06 17:32 | PD.CARD.PN ---
Subjective Subjective Remarks No chest pain, no shortness of breath, one episode of 3-4 beat NSVT over night Objective Medications Current Medications Medications (Trade) Dose Ordered Sig/Axel Route Start Time Stop Time Status Last Admin (Tylenol) 650 mg Q4H PRN PO 05/25/16 05:30 06/03/16 14:48 (Zofran Inj) 4 mg Q6H PRN IV 05/25/16 05:30 06/04/16 18:30 (Protonix) 40 mg DAILY PO 05/25/16 09:00 06/06/16 11:40 (Remeron) 15 mg HS PO 05/25/16 21:00 06/05/16 20:52 (Flomax) 0.4 mg HS PO 05/25/16 21:00 06/05/16 20:52 Miscellaneous Information Patient in critical care unit? Ass... Q361D XX 05/25/16 23:15 (Cardizem Cd) 120 mg DAILY PO 05/31/16 09:00 06/06/16 11:40 (Levaquin) 250 mg DAILY@11 PO 05/31/16 11:00 06/06/16 11:40 (Heparin Central Flush) See Protocol DAILY IVF 05/31/16 09:00 06/06/16 09:00 (Heparin Central Flush) See Protocol UNSCH PRN IVF 05/30/16 18:00 (NS Flush) See Protocol UNSCH PRN IVF 05/30/16 18:00 (Vasotec Inj) 1.25 mg Q6H PRN IV PUSH 06/02/16 16:00 06/04/16 11:38 ([place] 7.5-325 Mg) 1 tab Q4H PRN PO 06/02/16 15:45 06/06/16 11:40 (Xarelto) 20 mg DAILY PO 06/04/16 09:00 Hold 06/05/16 09:14 (Coreg) 12.5 mg BID PO 06/04/16 21:00 06/06/16 11:40 (Apresoline Inj) 10 mg Q4H PRN IV PUSH 06/04/16 11:00 Vital Signs / I&O Vital Signs Date Time Temp Pulse Resp B/P Pulse Ox O2 Delivery O2 Flow Rate FiO2 06/06/16 16:02 97.4 72 18 130/73 98 2/3/17 12:01 97.7 84 20 147/76 95 06/06/16 08:16 97.8 67 18 146/68 97 06/06/16 04:00 97.3 71 18 147/70 98 06/05/16 23:50 97.4 55 18 135/63 95 06/05/16 20:45 Nasal Cannula 3.00 06/05/16 20:00 97.7 58 20 141/69 97 06/05/16 20:00 60 I/O 06/05/16 06/05/16 06/05/16 06/06/16 06/06/16 06/06/16 07:00 15:00 23:00 07:00 15:00 23:00 Intake Total 120 ml 480 ml 240 ml 100 ml Output Total 200 ml 200 ml 400 ml 500 ml Balance -80 ml 280 ml -160 ml -400 ml Intake Oral 120 ml 480 ml 240 ml 100 ml IV Total 0 ml Output Urine Total 0 ml 200 ml 0 ml Drainage Total 200 ml 400 ml 500 ml # Bowel Movements 0 0 0 0 Physical Exam GENERAL: NAD, AAOx3 SKIN: Warm and dry. HEAD: Atraumatic. Normocephalic. EYES: Pupils equal and round. No scleral icterus. No injection or drainage. ENT: No nasal bleeding or discharge. Mucous membranes pink and moist. NECK: Trachea midline. No JVD. CARDIOVASCULAR: Regular rate and rhythm. 1/6 holosystolic murmur at the apex RESPIRATORY: No accessory muscle use. Decreased breath sounds bilaterally GASTROINTESTINAL: Abdomen soft, non-tender, nondistended. Hepatic and splenic margins not palpable. MUSCULOSKELETAL: Extremities without clubbing, cyanosis, or edema. No obvious deformities. NEUROLOGICAL: Awake and alert. No obvious cranial nerve deficits. Motor grossly within normal limits. Five out of 5 muscle strength in the arms and legs. Normal speech. PSYCHIATRIC: Appropriate mood and affect; insight and judgment normal. B/L nephrostomy tubes in place and draining Assessment and Plan Problem List: (1) Nephrolithiasis (2) Atrial fibrillation (3) NSVT (nonsustained ventricular tachycardia) (4) History of CVA with residual deficit (5) Sepsis Assessment and Plan 1) Nephrostomy tubes bilaterally 2) No clinical signs/symptoms of ischemia 3) EF 55%, small pericardial effusion, possibly due to uremia? will need echo in 1-2 weeks to check for stability vs growth 4) Sebastian, his daughter and son-in-law had a lot of questions about cardiac catheterization, kidney function and his stones. I spent 45-60 minutes with them to go over information about these topics. In the end, they all agree that they would like to continue medical management at this time due to the concern for his recent acute kidney injury, sepsis, kidney stones, and what they will do for the stones/nephrostomy tubes. We talked about his overall risk , and they understand. Will continue medical management of his presumed CAD. If at any time this can be reevaluated. 5) Would watch over night on telemetry 6) If any change clinically, can reevaluate cardiac cath vs medical management 7) Will restart Xarelto Problem Qualifiers (1) Atrial fibrillation: Qualified Code: I48.2 - Chronic atrial fibrillation (2) Sepsis: Qualified Code: A41.9 - Sepsis, due to unspecified organism Macario Elizabeth DO Jun 06, 2016 17:32
[2016-06-06 20:00] VITALS: BP 130/62; PULSE 61; PULSE 65; RESP 16; TEMP 98; O2SAT 95
[2016-06-06] MEDS: MIRTAZAPINE 15 MG TAB PO SCH (20:50)
[2016-06-06] MEDS: TAMSULOSIN HCL 0.4 MG CAP PO SCH (20:50)
[2016-06-07] VITALS (7 sets, daily range): BP systolic 114–141; BP diastolic 58–69; PULSE 57–77; RESP 15–20; TEMP 97.6–98.7; O2SAT 93–96
[2016-06-07] MEDS: ACETAMINOPHEN/HYDROcodone 325 MG/7.5 MG TAB PO PRN ×2 (05:09→14:30)
[2016-06-07] MEDS: SODIUM CHLORIDE 0.9% FLUSH 5 ML FLUSH IV FLUSH SCH ×2 (09:00→21:28)
[2016-06-07] MEDS: DILTIAZEM-CD 120 MG CAP ER PO SCH (09:08)
[2016-06-07] MEDS: RIVAROXABAN 20 MG TAB PO SCH (09:08)
[2016-06-07] MEDS: PANTOPRAZOLE SOD 40 MG DELAYED RELEASE TAB PO SCH (09:08)
[2016-06-07] MEDS: CARVEDILOL 12.5 MG TAB PO SCH ×2 (09:08→21:28)
[2016-06-07] MEDS: LEVOFLOXACIN 250 MG TAB PO SCH (10:52)
--- NOTE | 2016-06-07 11:01 | HHI.PR ---
Subjective History of Present Illness Subjective Remarks S/P bilat nephro tube placement 05/26 Generalized abdominal pain, no acute changes awake, oriented x 3, fatigue, but Sitting on side of bed no n/v eating okay, slow improvement BP improved. Cough SOB exertional Hospital Day: 13 Subjective Remarks I feel weak but trying to move around more. Appetite is improving Review of Systems Constitutional Constitutional: Fatigue, Weakness (10 Pt ROS. Postive for fatique, weakness. but slow improvement. Pain rt. UQ. Otherwise negative exam) Constitutional Remarks 10 point ROS done. Positives noted with fatigue weakness bi lateral nephrostomy tube's, anxiety mild improving, , debility, abdominal pain generalized. Other systems reviewed and negative Pulmonary Respiratory: Shortness of Breath (low air volumes, increased at rest, exertional) GI/Abdomen GI/Abdomen Remarks RT UQ pain continues, with flank pain Genitourinary Remarks Bilateral Nephro tubes both draining clear yellow urine, left tube draining well , minimal amount in rt. tube Musculoskeletal MS: Weakness (generalized), Swelling MS Remarks Trace edema ángel LE, rt. 1+ generalized debility Integumentary Skin Remarks Bilateral nephrostomy tube's. Clean dry dressing intact Psychiatric Psychiatric: Anxiety, Depression (tired of being the hospital) Vitals/Results Intake & Output 06/06/16 06/06/16 06/07/16 15:00 23:00 07:00 Intake Total 0 ml 480 ml 360 ml Output Total 680 ml Balance 0 ml 480 ml -320 ml Intake Oral 480 ml 360 ml IV Total 0 ml Output Urine Total 450 ml Drainage Total 230 ml # Voids 2 2 Vital Signs Vital Signs Date Time Temp Pulse Resp B/P Pulse Ox O2 Delivery O2 Flow Rate FiO2 06/07/16 08:24 98.4 66 20 138/64 96 06/07/16 04:00 97.9 57 15 141/69 93 06/07/16 00:00 97.7 70 16 123/58 95 06/06/16 20:30 Nasal Cannula 3.00 06/06/16 20:00 65 06/06/16 20:00 98.0 61 16 130/62 95 06/06/16 16:02 97.4 72 18 130/73 98 06/06/16 12:01 97.7 84 20 147/76 95 CBC/BMP: 06/03/16 2250 06/05/16 0520 Imaging Remarks Last Impressions Myocardial Perfusion Scan Nuc Med 06/06/16 0700 Signed Impressions: Service Date/Time: Monday, June 06, 2016 09:34 - CONCLUSION: 1. Moderate sized mild reversible perfusion defect of the distal lateral wall indicating possible ischemic segment. 2. No focal wall motion abnormality. 3. Ejection fraction within normal limits. RISK CATEGORY: 2- Intermediate Risk Kyle French MD Chest X-Ray 06/03/16 0000 Signed Impressions: Service Date/Time: Friday, June 03, 2016 14:12 - CONCLUSION: Improving pulmonary edema. Antwan Jay MD Nephrostomy 05/26/16 0000 Signed Impressions: Service Date/Time: Thursday, May 26, 2016 15:50 - CONCLUSION: 1. There are stones evident filling the entire collecting system of the right kidney. The nephrostomy tube had to be coiled in a dilated upper pole calyx as the renal pelvis is completely stone filled. 2. There is stone encasement of the patient' s ureteral stent. Florentin Castillo MD Abdomen/Pelvis CT 05/25/16 0427 Signed Impressions: Service Date/Time: Wednesday, May 25, 2016 04:31 - CONCLUSION: 1. Bilateral staghorn type renal calculi and left double J stent in place with concretion calcifications both proximal and distal. 2. There is also an obstructing stone in the proximal right ureter measuring 5 mm and causing mild right hydronephrosis. 3. Bilateral fat containing inguinal hernias, small right pleural effusion, probable pericardial effusion, and moderate enlargement of the prostate. Grayson Alcala MD Current Medications Active Medications Heparin Sodium/ Sodium Chloride (Heparin-NS/Pf Inj) 500 ml @ As Directed STK- MED ONCE .ROUTE; Start 06/06/16 at 17:01; Stop 06/06/16 at 17:02; Status DC Rivaroxaban (Xarelto) 20 mg DAILY PO Last administered on 06/07/16t 09:08; Admin Dose 20 MG; Start 06/07/16 at 09:00 Physical Exam General General Appearance: Well Developed, Well Nourished, No Acute Distress, Comfortable, Obese Appearance Remarks Rt. UQ discomfort. Off and on. Eyes Eye Exam: Pupils Equal, Pupils Reactive Ears & Nose Ears & Nose Exam: Nasal Mucosa [place] Throat Throat Exam: Oral Mucosa [place] & Moist Neck Neck Exam: Neck Supple, Trachea Midline Pulmonary Resp Exam: Breath Sounds Equal, No Distress, Diminished Breath Sounds, Poor Inspiratory Effort Resp Remarks Shortness of breath at rest Cardiology CV Exam: Irregular, Arrhythmia CV Remarks Irregular rhythm, telemetry shows A. fib with some pauses less than 2 seconds. V. tach on 06-03 1. Patient denies chest pain Gastrointestinal/Abdomen GI Exam: Soft, Non-Tender, Bowel Sounds Present, Non-Distended GI Remarks Rt.and lt. nephrostomy tube, obese round. Voiding in urinal 100 cc, small amounts Genitourinary Exam: Clear Urine Musculoskeletal MS Remarks Debility Integumentary Skin Exam: Warm, Dry Extremeties Extremities Exam: Pedal Pulses Palpable, Trace Edema Extremeties Remarks 1+ right leg edema. 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 We'll leave drains in for 1-2 weeks and then repeat eval per urology. -appreciate urology -For BPH, urology recommends to continue Flomax and desir if difficulty voiding. -went to IR on 05/26, s/p Bilateral nephrostomy tubes placed with ultrasound and fluoroscopic guidance, draining well -per Dr. Vazquez, continue abx and infection control, he will bring pt back in 1 to 2 wks for further urologic intervention. Acute renal injury-creat improved -off IVF -monitor renal function -avoid nephrotoxic agents Sepsis, UTI and PNA -continue abx -BC 05/25 2/2 GPC, sens. noted -repeat blood c/s remained neg -Per ID, he rec IV Abx [vanco] for 5 more days plus Po Levaquin-Completed Vanco -Has PICC , voiding small amounts in urinal 100 cc, monitor Afib, bradycardia, with hypotension. Now resolved 06/03 patient had episodes of NSVT, pauses -Continue Cardizem and Coreg -Telemetry monitoring, no acute issues over the last 24 hours -Continue Xarelto -Mag replaced -appreciate cardiology input, possible further testing when patient is stable, stent -pt went for STT, results pending, further rec. per Dr. Elizabeth -continue with Coreg HTN-was initially low, then elevated. Stable overnight -continue Cardizem and Coreg AMS, encephalopathy, likely sec. sepsis,-now resolved -ammonia normal Hx CVA with right sided weakness, pt. deconditioned now -PT eval and tx, encourage patient to be out of bed and up in chair. Slow progress, but trending with improvement Xarelto for DVT prophylaxis PT eval and tx-OOB Continue with above treatment, not ready to proceed to CIR until clear by cardiology. May need further work up, continues to have ectopy. D/W RN D/W Dr. Harrison D/W pt. This patient was seen by myself and Dr. Harrison, this note is written on his behalf Problem Qualifiers (1) Sepsis: Qualified Code: A41.9 - Sepsis, due to unspecified organism (2) Pneumonia: Qualified Code: J18.1 - Pneumonia of left lower lobe due to infectious organism (3) UTI (urinary tract infection): Qualified Code: N39.0 - Urinary tract infection with hematuria, site unspecified (4) Atrial fibrillation: Qualified Code: I48.2 - Chronic atrial fibrillation (5) BPH (benign prostatic hyperplasia): Mackenzie Solis Jun 07, 2016 11:01
[2016-06-07] MEDS: MIRTAZAPINE 15 MG TAB PO SCH (21:28)
[2016-06-07] MEDS: TAMSULOSIN HCL 0.4 MG CAP PO SCH (21:28)
[2016-06-08] VITALS (9 sets, daily range): BP systolic 129–155; BP diastolic 58–74; PULSE 59–78; RESP 16–20; TEMP 98.1–98.7; O2SAT 92–97
[2016-06-08] MEDS: ACETAMINOPHEN/HYDROcodone 325 MG/7.5 MG TAB PO PRN ×2 (03:26→20:24)
[2016-06-08] MEDS: SODIUM CHLORIDE 0.9% FLUSH 5 ML FLUSH IV FLUSH SCH ×2 (08:15→21:00)
[2016-06-08] MEDS: DILTIAZEM-CD 120 MG CAP ER PO SCH (08:16)
[2016-06-08] MEDS: RIVAROXABAN 20 MG TAB PO SCH (08:16)
[2016-06-08] MEDS: PANTOPRAZOLE SOD 40 MG DELAYED RELEASE TAB PO SCH (08:16)
[2016-06-08] MEDS: LEVOFLOXACIN 250 MG TAB PO SCH (08:16)
[2016-06-08] MEDS: CARVEDILOL 12.5 MG TAB PO SCH ×2 (08:16→20:16)
--- NOTE | 2016-06-08 10:50 | HHI.PR ---
Subjective Hospital Day: 13 Subjective Remarks Facial Color improving Appetite improving, eating fairly well now More alert No shortness of breath No headache No nausea Chest pain Review of Systems Constitutional Constitutional: Fatigue, Weakness (10 Pt ROS. Postive for fatique, weakness. but slow improvement. Pain rt. UQ. Otherwise negative exam) Constitutional Remarks 10 point ROS done. Positives noted with fatigue weakness bi lateral nephrostomy tube's, anxiety mild improving, , debility improving, getting up in chair now for long periods. Abdominal pain generalized. Other systems reviewed and negative Pulmonary Respiratory: Shortness of Breath (low air volumes, increased at rest, exertional) GI/Abdomen GI/Abdomen Remarks Abdominal pain and flank pain improving. Genitourinary Remarks Bilateral Nephro tubes both draining clear yellow urine, left tube draining well , yellow with some pinkish tinge, minimal amount in rt. tube dark red Musculoskeletal MS: Weakness (generalized), Swelling MS Remarks Trace edema ángle LE, rt. 1+ generalized debility, but improving with activity Integumentary Skin Remarks Bilateral nephrostomy tube's. Clean dry dressing intact Psychiatric Psychiatric: Anxiety, Depression (improving) Vitals/Results Intake & Output 06/07/16 06/07/16 06/08/16 15:00 23:00 07:00 Intake Total 600 ml 720 ml 180 ml Output Total 300 ml 570 ml Balance 600 ml 420 ml -390 ml Intake Oral 600 ml 720 ml 180 ml Output Urine Total 300 ml 220 ml Drainage Total 350 ml # Bowel Movements 0 Vital Signs Vital Signs Date Time Temp Pulse Resp B/P Pulse Ox O2 Delivery O2 Flow Rate FiO2 06/08/16 08:16 98.6 64 20 147/65 94 06/08/16 04:00 98.6 59 16 130/62 92 06/08/16 00:00 98.7 66 16 131/62 97 06/07/16 20:55 Nasal Cannula 2.00 06/07/16 20:44 Nasal Cannula 3.00 06/07/16 20:00 66 06/07/16 20:00 98.7 77 16 122/62 96 06/07/16 17:56 95 Nasal Cannula 3.00 06/07/16 16:31 20 06/07/16 16:03 97.6 69 19 125/65 95 06/07/16 12:21 93 Nasal Cannula 2.00 06/07/16 12:02 98.2 63 19 114/64 96 CBC/BMP: 06/03/16 2250 06/05/16 0520 Imaging Remarks Last Impressions Myocardial Perfusion Scan Nuc Med 06/06/16 0700 Signed Impressions: Service Date/Time: Monday, June 06, 2016 09:34 - CONCLUSION: 1. Moderate sized mild reversible perfusion defect of the distal lateral wall indicating possible ischemic segment. 2. No focal wall motion abnormality. 3. Ejection fraction within normal limits. RISK CATEGORY: 2- Intermediate Risk Kyle French MD Chest X-Ray 06/03/16 0000 Signed Impressions: Service Date/Time: Friday, June 03, 2016 14:12 - CONCLUSION: Improving pulmonary edema. Antwan Jay MD Nephrostomy 05/26/16 0000 Signed Impressions: Service Date/Time: Thursday, May 26, 2016 15:50 - CONCLUSION: 1. There are stones evident filling the entire collecting system of the right kidney. The nephrostomy tube had to be coiled in a dilated upper pole calyx as the renal pelvis is completely stone filled. 2. There is stone encasement of the patient' s ureteral stent. Florentin Castillo MD Abdomen/Pelvis CT 05/25/16 0427 Signed Impressions: Service Date/Time: Wednesday, May 25, 2016 04:31 - CONCLUSION: 1. Bilateral staghorn type renal calculi and left double J stent in place with concretion calcifications both proximal and distal. 2. There is also an obstructing stone in the proximal right ureter measuring 5 mm and causing mild right hydronephrosis. 3. Bilateral fat containing inguinal hernias, small right pleural effusion, probable pericardial effusion, and moderate enlargement of the prostate. Grayson Alcala MD Physical Exam General General Appearance: Well Developed, Well Nourished, No Acute Distress, Comfortable, Obese Appearance Remarks Rt. UQ discomfort. Off and on. Eyes Eye Exam: Pupils Equal, Pupils Reactive Ears & Nose Ears & Nose Exam: Nasal Mucosa [place] Throat Throat Exam: Oral Mucosa [place] & Moist Neck Neck Exam: Neck Supple, Trachea Midline Pulmonary Resp Exam: Breath Sounds Equal, No Distress, Diminished Breath Sounds, Poor Inspiratory Effort Resp Remarks Mild exertion dyspnea, improving Cardiology CV Exam: Irregular, Arrhythmia CV Remarks A fib, rate 74. Gastrointestinal/Abdomen GI Exam: Soft, Non-Tender, Bowel Sounds Present, Non-Distended GI Remarks Rt.and lt. nephrostomy tube, obese round. Voiding in urinal 100 cc, small amounts Genitourinary Exam: Clear Urine, Sediment Remarks [place] Musculoskeletal MS Remarks Debility Integumentary Skin Exam: Warm, Dry Extremeties Extremities Exam: Pedal Pulses Palpable, Trace Edema Extremeties Remarks 1+ right leg edema. 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 drains in for 1-2 weeks, should have urology re-eval tubes this week Decreased drainage now with nephrostomy tubes -appreciate urology Acute renal injury-creat improved, I can by mouth fluids well -monitor renal function Sepsis, UTI and PNA, Levaquin coverage, improving -Has PICC , voiding small amounts in urinal 100 cc, monitor Afib, heart rate 74. No ectopy, medical management, Cardizem and Coreg -Telemetry -Continue Xarelto appreciate cardiology input, possible further testing when patient is stable, stent Alert cooperative, states he is feeling better, altered mental status resolved Out of bed for long periods now. Strengthening improving daily Xarelto for DVT prophylaxis PT treatment and 10 use for his debility improving, Should be able to transition to next level of care soon. D/W RN D/W Dr. Harrison D/W pt. This patient was seen by myself and Dr. Harrison, this note is written on his behalf Problem Qualifiers (1) Sepsis: Qualified Code: A41.9 - Sepsis, due to unspecified organism (2) Pneumonia: Qualified Code: J18.1 - Pneumonia of left lower lobe due to infectious organism (3) UTI (urinary tract infection): Qualified Code: N39.0 - Urinary tract infection with hematuria, site unspecified (4) Atrial fibrillation: Qualified Code: I48.2 - Chronic atrial fibrillation (5) BPH (benign prostatic hyperplasia): Mackenzie Solis Jun 08, 2016 10:49 (5) BPH (benign prostatic hyperplasia): Mackenzie Solis Jun 08, 2016 10:49
--- NOTE | 2016-06-08 14:59 | HHI.PR ---
Subjective Remarks Consult it as the urologist construction carpenters helper to check functional status of the recently placed bilateral nephrostomy tubes. Patient has bilateral staghorn renal calculi and a retained calcified left ureteral stent. Patient is presently under the care of Dr. Vazquez who previously ordered the nephrostomy tubes to be placed and recommended outpatient follow up. Patient reports that he is spontaneously voiding in addition to the urine output from the nephrostomy tubes. Objective Vital Signs Vital Signs Date Time Temp Pulse Resp B/P Pulse Ox O2 Delivery O2 Flow Rate FiO2 06/08/16 12:10 98.2 62 19 135/58 95 06/08/16 10:58 94 Nasal Cannula 3.00 06/08/16 10:53 68 06/08/16 08:16 98.6 64 20 147/65 94 06/08/16 04:00 98.6 59 16 130/62 92 06/08/16 00:00 98.7 66 16 131/62 97 06/07/16 20:55 Nasal Cannula 2.00 06/07/16 20:44 Nasal Cannula 3.00 06/07/16 20:00 66 06/07/16 20:00 98.7 77 16 122/62 96 06/07/16 17:56 95 Nasal Cannula 3.00 06/07/16 16:31 20 06/07/16 16:03 97.6 69 19 125/65 95 I/O 06/07/16 06/07/16 06/07/16 06/08/16 06/08/16 06/08/16 07:00 15:00 23:00 07:00 15:00 23:00 Intake Total 360 ml 600 ml 720 ml 180 ml Output Total 680 ml 300 ml 570 ml Balance -320 ml 600 ml 420 ml -390 ml Intake Oral 360 ml 600 ml 720 ml 180 ml Output Urine Total 450 ml 300 ml 220 ml Drainage Total 230 ml 350 ml # Voids 2 # Bowel Movements 0 Result Diagram: 06/03/16 2250 06/05/16 0520 Imaging Last 72 hours Impressions Abdomen/Pelvis CT 05/25/16 0427 Signed Impressions: Service Date/Time: Wednesday, May 25, 2016 04:31 - CONCLUSION: 1. Bilateral staghorn type renal calculi and left double J stent in place with concretion calcifications both proximal and distal. 2. There is also an obstructing stone in the proximal right ureter measuring 5 mm and causing mild right hydronephrosis. 3. Bilateral fat containing inguinal hernias, small right pleural effusion, probable pericardial effusion, and moderate enlargement of the prostate. Grayson Alcala MD Chest X-Ray 05/25/16 0325 Signed Impressions: Service Date/Time: Wednesday, May 25, 2016 03:34 - CONCLUSION: Patchy areas of infiltrate in left mid and lower lung. Grayson Alcala MD Objective Remarks Both nephrostomy tubes appeared to be in good position and functioning as expected. Assessment and Plan Problem List: (1) Nephrolithiasis ICD Code: N20.0 Status: Acute (2) UTI (urinary tract infection) ICD Code: N39.0 Status: Acute Assessment and Plan Urologic impression: Properly functioning bilateral nephrostomy tubes. Recommendation: Patient to follow up with Dr. Vazquez as as an outpatient as previously recommended. Problem Qualifiers (1) UTI (urinary tract infection): Qualified Code: N39.0 - Urinary tract infection with hematuria, site unspecified Sharif Mishra MD Jun 08, 2016 14:59
[2016-06-08] MEDS: MIRTAZAPINE 15 MG TAB PO SCH (20:16)
[2016-06-08] MEDS: TAMSULOSIN HCL 0.4 MG CAP PO SCH (20:16)
[2016-06-09] VITALS (7 sets, daily range): BP systolic 122–147; BP diastolic 59–76; PULSE 64–81; RESP 20–22; TEMP 97.7–98.6; O2SAT 95–98
[2016-06-09] MEDS: SODIUM CHLORIDE 0.9% FLUSH 5 ML FLUSH IV FLUSH SCH ×2 (09:00→22:00)
[2016-06-09] MEDS: DILTIAZEM-CD 120 MG CAP ER PO SCH (09:58)
[2016-06-09] MEDS: PANTOPRAZOLE SOD 40 MG DELAYED RELEASE TAB PO SCH (09:58)
[2016-06-09] MEDS: CARVEDILOL 12.5 MG TAB PO SCH ×2 (09:58→22:00)
[2016-06-09] MEDS: LEVOFLOXACIN 250 MG TAB PO SCH (09:58)
[2016-06-09] MEDS: RIVAROXABAN 20 MG TAB PO SCH (09:58)
--- NOTE | 2016-06-09 10:40 | HHI.FF ---
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 My clinical findings support the need for the requested home health care services because: Deconditioned w/ increased weakness High risk of falls I certify that my clinical findings support that this patient is homebound because: Post-op weakness Unsafe to leave home unassisted Need for psychosocial assistance Fanny NapolesP Jun 09, 2016 10:40
--- NOTE | 2016-06-09 10:46 | HHI.PR ---
Subjective Hospital Day: 13 Subjective Remarks S/P bilat nephro tube placement 05/26 no cp no sob no fever sitting up in chair getting stronger, considering going home instead of SNF tele reviewed, Afib, 2-3 episodes of NSVT 2-4 beats Review of Systems Constitutional Constitutional: Fatigue, Weakness (10 Pt ROS. Postive for fatique, weakness. but slow improvement. Pain rt. UQ. Otherwise negative exam) Constitutional Remarks 12 point ROS completed, negative except as noted above Pulmonary Respiratory: Shortness of Breath (low air volumes, increased at rest, exertional) Musculoskeletal MS: Weakness (generalized), Swelling Psychiatric Psychiatric: Anxiety, Depression (improving) Vitals/Results Intake & Output 06/08/16 06/08/16 06/09/16 15:00 23:00 07:00 Intake Total 480 ml 280 ml 120 ml Output Total 200 ml 510 ml 400 ml Balance 280 ml -230 ml -280 ml Intake Oral 480 ml 280 ml 120 ml Output Urine Total 200 ml 300 ml 400 ml Drainage Total 210 ml # Bowel Movements 0 0 Vital Signs Vital Signs Date Time Temp Pulse Resp B/P Pulse Ox O2 Delivery O2 Flow Rate FiO2 06/09/16 08:00 Nasal Cannula 3.00 06/09/16 08:00 98.2 81 20 124/76 95 06/09/16 04:00 98.2 70 20 139/69 96 06/09/16 00:00 98.6 77 20 147/70 95 06/08/16 21:20 Nasal Cannula 3.00 06/08/16 21:20 77 06/08/16 20:00 98.7 71 20 155/74 96 06/08/16 16:01 98.1 65 20 129/60 93 06/08/16 12:10 98.2 62 19 135/58 95 06/08/16 10:58 94 Nasal Cannula 3.00 06/08/16 10:53 68 CBC/BMP: 06/05/16 0520 Physical Exam General General Appearance: Well Developed, Well Nourished, No Acute Distress, Comfortable, Obese Eyes Eye Exam: Pupils Equal, Pupils Reactive Ears & Nose Ears & Nose Exam: Nasal Mucosa [place] Throat Throat Exam: Oral Mucosa [place] & Moist Neck Neck Exam: Neck Supple, Trachea Midline Pulmonary Resp Exam: Breath Sounds Equal, No Distress, Diminished Breath Sounds, Poor Inspiratory Effort Cardiology CV Exam: Irregular, Arrhythmia Gastrointestinal/Abdomen GI Exam: Soft, Non-Tender, Bowel Sounds Present, Non-Distended Genitourinary Exam: Clear Urine, Sediment Remarks bilat nephrostomy tubes Musculoskeletal MS Remarks right sided weakness upper and lower Integumentary Skin Exam: Warm, Dry Extremeties Extremities Exam: Pedal Pulses Palpable, Trace Edema Neurologic Neuro Exam: Alert, Awake, Oriented, Speech Clear, Moving All Extremities Neuro Remarks Right-sided weakness Psychiatric Psych Exam: Appropriate Responses VTE Prophylaxis VTE Prophylaxis Device: SCDs VTE Remarks Xarelto PUD Prophylasis PUD Prophylaxis: Protonix Assessment/Plan Problem List: (1) Sepsis (2) Pneumonia (3) Renal insufficiency (4) Nephrolithiasis (5) UTI (urinary tract infection) (6) Atrial fibrillation (7) Bradycardia (8) BPH (benign prostatic hyperplasia) (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 We'll leave drains in for 1-2 weeks and then repeat eval per urology. -appreciate urology -For BPH, urology recommends to continue Flomax and desir if difficulty voiding. -went to IR on 05/26, s/p Bilateral nephrostomy tubes placed with ultrasound and fluoroscopic guidance, draining well -per Dr. Vazquez, continue abx and infection control, he will bring pt back in 1 to 2 wks for further urologic intervention. -Dr. Mishra evaluated yesterday, recommends for pt. to f/u as OP with Dr. Vazquez, tubes draining as expected. Acute renal injury-creat improved -off IVF -monitor renal function -avoid nephrotoxic agents Sepsis, UTI and PNA -continue abx -BC 05/25 2/2 GPC, sens. noted -repeat blood c/s remained neg -Per ID, he rec IV Abx [vanco] for 5 more days plus Po Levaquin-Completed Vanco -Has PICC -DC Levaquin tomorrow -Remove PICC today Afib, bradycardia, with hypotension. Now resolved 06/03 patient had episodes of NSVT, pauses -Continue Cardizem and Coreg -Telemetry monitoring -Continue Xarelto -appreciate cardiology input -pt went for STT 2/3, reversible defect. Card spoke to family at length, pt and family want medical management for now. No cardiac cath -Less ectopy, continue Coreg HTN-was initially low, then elevated. Stable overnight -continue Cardizem and Coreg AMS, encephalopathy, likely sec. sepsis,-now resolved -ammonia normal -resolved Hx CVA with right sided weakness, pt. deconditioned now -PT eval and tx Xarelto for DVT prophylaxis PT eval and tx-OOB will have PT evaluate today, ambulate CM for DC planning, arrange HHC, already has SNF hopefully DC today or tomorrow D/W RN D/W Dr. Dominguez D/W pt. This patient was seen by myself and Dr. Dominguez, this note is written on his behalf Problem Qualifiers (1) Sepsis: Qualified Code: A41.9 - Sepsis, due to unspecified organism (2) Pneumonia: Qualified Code: J18.1 - Pneumonia of left lower lobe due to infectious organism (3) UTI (urinary tract infection): Qualified Code: N39.0 - Urinary tract infection with hematuria, site unspecified (4) Atrial fibrillation: Qualified Code: I48.2 - Chronic atrial fibrillation (5) BPH (benign prostatic hyperplasia): Fanny Napoles Jun 09, 2016 10:46
[2016-06-09] MEDS ORDERED: MAGNESIUM HYDROXIDE SUSP 30 ML CUP PO PRN (11:00)
[2016-06-09] MEDS ORDERED: XARE20TA PO (13:18)
[2016-06-09] MEDS ORDERED: CARV12.5 PO (13:18)
[2016-06-09] MEDS ORDERED: CARD120C4 PO (13:18)
[2016-06-09] MEDS: ACETAMINOPHEN/HYDROcodone 325 MG/7.5 MG TAB PO PRN (17:13)
[2016-06-09] MEDS: MIRTAZAPINE 15 MG TAB PO SCH (22:00)
[2016-06-09] MEDS: TAMSULOSIN HCL 0.4 MG CAP PO SCH (22:00)
[2016-06-10] VITALS: BP 145/78; PULSE 63; RESP 18; TEMP 97.5; O2SAT 93
[2016-06-10 04:00] VITALS: BP 137/68; PULSE 63; RESP 18; TEMP 97.6; O2SAT 94
[2016-06-10] MEDS: ACETAMINOPHEN/HYDROcodone 325 MG/7.5 MG TAB PO PRN ×2 (04:52→12:20)
[2016-06-10 06:03] LABS: HEMATOCRIT 31.2 % (39.0-51.0); MEAN CELL VOLUME 92.1 FL (80.0-100.0); MEAN CORPUSCULAR HEMOGLOBIN 31.6 PG (27.0-34.0); MEAN CORPUSCULAR HGB CONC 34.3 % (32.0-36.0); PLATELET COUNT 151 TH/MM3 (150-450); RED BLOOD COUNT 3.39 MIL/MM3 (4.50-5.90); RED CELL DISTRIBUTION WIDTH 14.6 % (11.6-17.2); REVIEW FLAG FINAL; WHITE BLOOD COUNT 6.7 TH/MM3 (4.0-11.0)
[2016-06-10 06:33] LABS: BICARBONATE 35.8 MEQ/L (21.0-32.0); POTASSIUM 3.7 MEQ/L (3.5-5.1)
[2016-06-10 08:00] VITALS: BP 153/72; PULSE 66; RESP 18; TEMP 98.1; O2SAT 98
[2016-06-10] MEDS: PANTOPRAZOLE SOD 40 MG DELAYED RELEASE TAB PO SCH (08:40)
[2016-06-10] MEDS: CARVEDILOL 12.5 MG TAB PO SCH (08:40)
[2016-06-10] MEDS: DILTIAZEM-CD 120 MG CAP ER PO SCH (08:40)
[2016-06-10] MEDS: SODIUM CHLORIDE 0.9% FLUSH 5 ML FLUSH IV FLUSH SCH (08:40)
[2016-06-10] MEDS: RIVAROXABAN 20 MG TAB PO SCH (08:44)
--- NOTE | 2016-06-10 10:50 | HHI.PR ---
Subjective Hospital Day: 13 Subjective Remarks S/P bilat nephro tube placement 05/26 no cp no sob no fever sitting up in chair Telemetry reviewed, few episodes of nonsustained VT Patient and family prefer to go to [facility], they have bed available today (Fanny Napoles) Review of Systems Constitutional Constitutional: Fatigue, Weakness (10 Pt ROS. Postive for fatique, weakness. but slow improvement. Pain rt. UQ. Otherwise negative exam) Constitutional Remarks 12 point ROS completed, negative except as noted above (Fanny Napoles) Pulmonary Respiratory: Shortness of Breath (low air volumes, increased at rest, exertional) (Fanny Napoles) Musculoskeletal MS: Weakness (generalized), Swelling (Fanny Napoles) Psychiatric Psychiatric: Anxiety, Depression (improving) (Fanny Napoles) Vitals/Results Intake & Output 06/09/16 06/09/16 06/10/16 15:00 23:00 07:00 Intake Total 240 ml 480 ml 100 ml Output Total 300 ml 60 ml 345 ml Balance -60 ml 420 ml -245 ml Intake Oral 240 ml 480 ml 100 ml IV Total 0 ml Output Urine Total 150 ml 0 ml 275 ml Drainage Total 150 ml 60 ml 70 ml # Voids 0 # Bowel Movements 1 0 0 Vital Signs Vital Signs Date Time Temp Pulse Resp B/P Pulse Ox O2 Delivery O2 Flow Rate FiO2 06/10/16 09:42 Nasal Cannula 2.00 06/10/16 08:00 98.1 66 18 153/72 98 06/10/16 04:00 97.6 63 18 137/68 94 06/10/16 00:00 97.5 63 18 145/78 93 06/09/16 22:02 Nasal Cannula 2.00 06/09/16 20:11 97.8 64 22 131/60 95 06/09/16 16:00 97.7 65 20 128/70 98 06/09/16 12:00 97.9 68 20 122/59 95 (Fanny Napoles) CBC/BMP: 06/10/16 0545 06/10/16 0545 Lab Results Laboratory Tests Test 06/10/16 05:45 White Blood Count 6.7 TH/MM3 Red Blood Count 3.39 MIL/MM3 Hemoglobin 10.7 GM/DL Hematocrit 31.2 % Mean Corpuscular Volume 92.1 FL Mean Corpuscular Hemoglobin 31.6 PG Mean Corpuscular Hemoglobin 34.3 % Concent Red Cell Distribution Width 14.6 % Platelet Count 151 TH/MM3 Mean Platelet Volume 9.1 FL Sodium Level 144 MEQ/L Potassium Level 3.7 MEQ/L Chloride Level 103 MEQ/L Carbon Dioxide Level 35.8 MEQ/L Anion Gap 5 MEQ/L Blood Urea Nitrogen 20 MG/DL Creatinine 1.39 MG/DL Estimat Glomerular Filtration 49 ML/MIN Rate Random Glucose 98 MG/DL Calcium Level 8.7 MG/DL (Fanny Napoles) Physical Exam General General Appearance: Well Developed, Well Nourished, No Acute Distress, Comfortable, Obese (Fanny Napoles) Eyes Eye Exam: Pupils Equal, Pupils Reactive (Fanny Napoles) Ears & Nose Ears & Nose Exam: Nasal Mucosa [place] (Fanny Napoles) Throat Throat Exam: Oral Mucosa [place] & Moist (Fanny Napoles) Neck Neck Exam: Neck Supple, Trachea Midline (Fanny Napoles) Pulmonary Resp Exam: Breath Sounds Equal, No Distress, Diminished Breath Sounds, Poor Inspiratory Effort (Fanny Napoles) Cardiology CV Exam: Irregular, Arrhythmia (Fanny Napoles) Gastrointestinal/Abdomen GI Exam: Soft, Non-Tender, Bowel Sounds Present, Non-Distended (Fanny Napoles) Genitourinary Exam: Clear Urine, Sediment Remarks bilat nephrostomy tubes (Fanny Napoles) Musculoskeletal MS Remarks right sided weakness upper and lower (Fanny Napoles) Integumentary Skin Exam: Warm, Dry (Fanny Napoles) Extremeties Extremities Exam: Pedal Pulses Palpable, Trace Edema (Fanny Napoles) Neurologic Neuro Exam: Alert, Awake, Oriented, Speech Clear, Moving All Extremities Neuro Remarks Right-sided weakness (Fanny Napoles) Psychiatric Psych Exam: Appropriate Responses (Fanny Napoles) VTE Prophylaxis VTE Prophylaxis Device: SCDs VTE Remarks Xarelto (Fanny NapolesP) PUD Prophylasis PUD Prophylaxis: Protonix (Fanny Napoles) Assessment/Plan Problem List: (1) Sepsis (2) Pneumonia (3) Renal insufficiency (4) Nephrolithiasis (5) UTI (urinary tract infection) (6) Atrial fibrillation (7) Bradycardia (8) BPH (benign prostatic hyperplasia) (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 We'll leave drains in for 1-2 weeks and then repeat eval per urology. -appreciate urology -For BPH, urology recommends to continue Flomax and desir if difficulty voiding. -went to IR on 05/26, s/p Bilateral nephrostomy tubes placed with ultrasound and fluoroscopic guidance, draining well -per Dr. Vazquez, continue abx and infection control, he will bring pt back in 1 to 2 wks for further urologic intervention. -Dr. Mishra evaluated yesterday, recommends for pt. to f/u as OP with Dr. Vazquez, tubes draining as expected. Acute renal injury-creat improved -off IVF -monitor renal function -avoid nephrotoxic agents Sepsis, UTI and PNA -continue abx -BC 05/25 2/2 GPC, sens. noted -repeat blood c/s remained neg -Per ID, he rec IV Abx [vanco] for 5 more days plus Po Levaquin-Completed Vanco -Has PICC -DC Levaquin tomorrow -Remove PICC today Afib, bradycardia, with hypotension. Now resolved 06/03 patient had episodes of NSVT, pauses -Continue Cardizem and Coreg -Telemetry monitoring -Continue Xarelto -appreciate cardiology input -STT 2/3, reversible defect. Card spoke to family at length, pt and family want medical management for now. No cardiac cath -Less ectopy, continue Coreg HTN-was initially low, then elevated. Stable overnight -continue Cardizem and Coreg AMS, encephalopathy, likely sec. sepsis,-now resolved -ammonia normal -resolved Hx CVA with right sided weakness, pt. deconditioned now -PT eval and tx Xarelto for DVT prophylaxis PT eval and tx-OOB Patient and family prefer to go to [facility], they now have a bed available Discussed with case management, bed will be available this afternoon Patient stable for discharge Needs to follow-up with Dr. Taylor Velasquez -heart healthy Activity-as tolerated D/W RN D/W Dr. Dominguez D/W pt. D/W CM This patient was seen by myself and Dr. Dominguez, this note is written on his behalf Discharge Minutes: 45 (Fanny Napoles) Assessment/Plan Patient seen and examined in detail as above [id number] time spent with patient Labs and medications reviewed Notes reviewed Appreciate consultants help Plan of care discussed with [employer] Discussed with patient Plan for DC today. Total time spent in DC planning of this patient is more than 45 minutes (Chelle Dominguez MD) Problem Qualifiers (1) Sepsis: Qualified Code: A41.9 - Sepsis, due to unspecified organism (2) Pneumonia: Qualified Code: J18.1 - Pneumonia of left lower lobe due to infectious organism (3) UTI (urinary tract infection): Qualified Code: N39.0 - Urinary tract infection with hematuria, site unspecified (4) Atrial fibrillation: Qualified Code: I48.2 - Chronic atrial fibrillation (5) BPH (benign prostatic hyperplasia): Fanny Napoles Jun 10, 2016 10:50 Chelle Dominguez MD Jun 10, 2016 13:21
[2016-06-19] MEDS ORDERED: WHEEMIS3 (13:49)
[2016-06-19] MEDS ORDERED: COMMODE 3-IN-11 MIS (13:49)
[2016-06-20] MEDS ORDERED: MIRTA15 PO (10:30)
[2016-06-20] MEDS ORDERED: HYDR-3516 PO (10:30)
[2016-06-20] MEDS ORDERED: XARE15TA PO (10:30)
[2016-06-20] MEDS ORDERED: CARD120C4 PO (10:30)
[2016-06-20] MEDS ORDERED: PANT40TA3 PO (10:30)
[2016-06-20] MEDS ORDERED: CIPR250T52 PO (10:30)
[2016-06-20] MEDS ORDERED: TAMS5CAP PO (10:30)
[2016-06-20] MEDS ORDERED: CARV12.5 PO (10:30)
== END 2016-06-10 15:30 | DRG 871 ==
LOC: NEPC 03:09 → NEDA 05:24 → NEDH 13:11 → HIME 22:40 → N04A 05-29 19:00
PROVIDERS: ADMIT Specialist; ATTEND Specialist
PROC: 0T9130Z Drainage of Left Kidney with Drainage Device, Percutaneous Approach (ICD-10-PCS; principal; 2016-05-26)
PROC: 0T9030Z Drainage of Right Kidney with Drainage Device, Percutaneous Approach (ICD-10-PCS; 2016-05-26)
PROC: BT14ZZZ Fluoroscopy of Kidneys, Ureters and Bladder (ICD-10-PCS; 2016-05-26)
DX: A41.9 Sepsis, unspecified organism (principal); J18.9 Pneumonia, unspecified organism; N17.9 Acute kidney failure, unspecified; G93.40 Encephalopathy, unspecified; I47.2 Ventricular tachycardia; E87.2 Acidosis; E46 Unspecified protein-calorie malnutrition; I69.351 Hemiplegia and hemiparesis following cerebral infarction affecting right dominant side; N13.6 Pyonephrosis; I48.2 Chronic atrial fibrillation; D64.9 Anemia, unspecified; R65.20 Severe sepsis without septic shock; N40.0 Benign prostatic hyperplasia without lower urinary tract symptoms; N21.0 Calculus in bladder; K21.9 Gastro-esophageal reflux disease without esophagitis; I10 Essential (primary) hypertension; I45.10 Unspecified right bundle-branch block; G89.29 Other chronic pain; M54.5 Low back pain; I25.10 Atherosclerotic heart disease of native coronary artery without angina pectoris; F32.9 Major depressive disorder, single episode, unspecified; Z79.01 Long term (current) use of anticoagulants
CPT/HCPCS: 36569; 36600; 50432; 71010; 74176; 76937; 78452; 80048; 80053; 81001; 82140; 82550; 82805; 83605; 83690; 83735; 84484; 85007; 85025; 85027; 85610; 85730; 86403; 87040; 87086; 87205; 87641; 87804; 93005; 93017; 93306; 94150; 94664; 96365; 96367; 99152; 99153; A9502; C1729; C1769; C1887; J0456; J0696; J1642; J1644; J2250; J2270; J2405; J2785; J3010; J3370; J3475; J7030; J7050; Q9967